=== PATIENT | female | born 1930 | race Caucasian/White ===

== ENCOUNTER 2016-08-26 12:50 | Emergency (ER) | payer MEDICARE, MEDICAID ==
[~2016-08-26] VITALS: Ht 177.8 cm; Wt 71.0 kg
[~2016-08-26 12:50] MED LIST: CARV25TA PO; DABI75CA3 PO; DILT180C51 PO; DONE10TA30 PO; FURO40TA5 PO; LOSA100T44 PO; NITR100C4 PO; ONDA4TAB7 PO
[2016-08-26 12:52] VITALS: Ht 177.8 cm; Wt 71.0 kg
--- OUTSIDE RECORDS SUMMARY | 2016-08-26 12:54 | XMS REPORT | Continuity of Care Document ---
Author Author [facility] Organization [facility] Address Unknown Phone Unavailable Support Name Relationship Address Phone SACHA BELL MD Caregiver [address] [place] [address] [address] [place], [place] [id number] Unavailable RENETTA SCOTT DO Caregiver Unknown Unavailable PEARL ZEE Next Of Kin [address] [facility] [address] [place] [address] Insurance Providers Guarantor Paula Zee Address [address] [facility] [address] [place] [address] Email NO COMP CO MORE CALLS Payer Medicare Policy Number [id number] Subscriber's Name Paula Zee Relationship 18 Self Effective Date 91 Advance Directives Directive Response Recorded Date/Time Advanced Directives Type None 09/22/15 2:20pm Chief Complaint and Reason for Visit Chief Complaint General Reason for Visit Fatigue Nausea Problems Active Problems Medical Problem Onset Date Status CAD (coronary artery disease) Unknown Chronic CHF (congestive heart failure) Unknown Chronic Coagulopathy Unknown Chronic Fatigue Unknown Acute HTN (hypertension) Unknown Chronic Hematoma Unknown Acute Hemorrhoids, internal, with bleeding Unknown Acute Laceration Unknown Acute Nausea Unknown Acute Symptomatic anemia Unknown Acute Symptomatic anemia Unknown Acute Vaginal bleeding Unknown Acute Medications Current Home Medications Medication Dose Units Route Directions Days Qty Instructions Start Date Carvedilol (Coreg) 25 Mg Tablet 25 Mg Oral Twice A Day 06/24/14 Dabigatran Etexilate Mesylate (Pradaxa) 75 Mg Capsule 75 Mg Oral Twice A Day 10/28/14 Diltiazem Hcl (Cartia Xt) 180 Mg Capsule 180 Mg Oral Twice A Day 10/28/14 Donepezil Hcl 10 Mg Tablet 5 Mg Oral Daily TAKE 1/2 TAB FOR 7 DAYS THEN 1 TAB DAILY 09/22/15 Losartan Potassium 100 Mg Tablet 100 Mg Oral Daily 06/21/14 Ondansetron (Zofran Odt) 4 Mg Tab.rapdis 4 Mg Oral Q8h @ 0100/0900/1700 10 Tablet Orally disintegrating tablet 09/22/15 Potassium Chloride 20 Meq Tab.prt.sr 20 Meq Oral Three Times A Day 03/08/11 Past Home Medications Medication Directions Ordered Status Acetaminophen With Codeine (Tylenol With Codeine #3 Tablet) 1 Each Tablet, 1 Tab Oral Every Six Hours for Pain 12/26/14 Discontinued Aspirin (Aspir 81) 81 Mg Tablet., 1 Tab Oral Daily 10/28/14 Discontinued Aspirin (Aspir 81) 81 Mg Tablet., 1 Tab Oral Daily 06/21/14 Discontinued Aspirin (Aspirin Ec) 81 Mg Tablet.dr, 81 Mg Oral Daily 12/19/08 Discontinued Benazepril Hcl 40 Mg Tablet, 40 Mg Oral Daily 12/01/10 Discontinued Bystolic , 20 Mg Oral Daily 12/01/10 Discontinued Cephalexin (Keflex) 500 Mg Capsule, 1 Cap Oral Four Times Daily 12/26/14 Discontinued Citalopram Hydrobromide (Celexa) 20 Mg Tablet, 20 Mg Oral Bedtime 03/08/11 Discontinued Cyanocobalamin (Vitamin B-12) (Vitamin B-12) 1,000 Mcg Tablet, 1 Tab Oral Daily for Low B12 07/23/14 Discontinued Dabigatran Etexilate Mesylate (Pradaxa) 75 Mg Capsule, 1 Cap Oral Twice A Day 06/21/14 Discontinued Digoxin 125 Mcg Tablet, 125 Mcg Oral Daily 12/19/08 Discontinued Ferrous Sulfate (Iron) 325 Mg Tablet, 1 Tab Oral Give With Breakfast for Anemia 07/23/14 Discontinued Glucosamine Sulfate 1,000 Mg Capsule, 1000 Mg Oral Twice A Day 12/19/08 Discontinued Guaifen/Dm Hb/P-Ephedrine (Robitussin Cold/Cough Cap) 1 Cap Capsule, 1 Cap Oral Twice A Day 03/12/11 Discontinued Irbesartan (Avapro) 300 Mg Tablet, 300 Mg Oral Daily 12/19/08 Discontinued Mirtazapine (Remeron) 15 Mg Tablet, 15 Mg Oral Bedtime 03/12/11 Discontinued Niacin/Simvastatin (Simcor 500-20 Mg Tablet) 1 Bottle Tbmp.24hr, 1 Bottle Oral 12/19/08 Discontinued Potassium Chloride (Klor-Con 10) 10 Meq Tablet.sa, 10 Meq Oral Daily Discontinued Sennosides (Senna) 8.6 Mg Tablet, 8.6 Mg Oral Daily 03/08/11 Discontinued Spironolactone (Aldactone) 25 Mg Tablet, 25 Mg Oral Daily 12/19/08 Discontinued Sulfamethoxazole/Trimethoprim (Bactrim Ds Tablet) 1 Tab Tablet, 1 Tab Oral Twice A Day 12/01/10 Discontinued Warfarin Sodium (Coumadin) 2 Mg Tablet, 2 Mg Oral Bedtime 12/19/08 Discontinued Social History Social History Problem Response Recorded Date/Time Onset Date Status Hx Substance Use No 09/22/2015 3:04pm Not Applicable Not Applicable Hx Alcohol Use No 09/22/2015 3:04pm Not Applicable Not Applicable Has the pt used tobacco in the last 12 months No 07/20/2014 5:16pm Not Applicable Not Applicable Tobacco Usage none 07/20/2014 7:22pm Not Applicable Not Applicable Query Response Start Date Stop Date Smoking Status Former smoker Hospital Discharge Instructions No hospital discharge instructions. Plan of Care Discharge Date 09/22/15 6:00pm Disposition 01 DISCHARGED HOME, SELF-CARE Condition at Discharge Stable Instructions/Education Provided DI for Nausea -- Adult Prescriptions See Medication Section Referrals RENETTA SCOTT DO Additional Instructions/Education Please take the Zofran as needed for nausea. Make sure that you are eating and drinking plenty of fluids. Follow up with your primary care provider as needed if not improving. Please make sure that you are taking your medications as prescribed as well. Care Plan and Goals Physician Care Plan Problem:Nausea, fatigue Goal: Follow up with primary care provider Instructions: Take medications and follow care plan as discussed/written Functional Status No functional status results. Allergies, Adverse Reactions, Alerts Allergen Type Severity Reaction Status Last Updated Sulfa (Sulfonamide Antibiotics) Adverse Reaction Mild GI SYMPTOMS Active 09/22/15 Digoxin Allergy Unknown NAUSEA Active 09/22/15 Trimethoprim Adverse Reaction Mild GI SYMPTOMS Active 09/22/15 Immunizations Query Response on File Recorded Date/Time Hx Influenza Vaccination Y 201301/30/15 9:32pm Hx Pneumococcal Vaccination Y 200301/30/15 9:32pm Hx Tetanus, Diptheria, Pertussis UNKNOWN - WILL UPDATE 12/26/14 01/30/15 9: 32pm Hx Influenza Vaccination Y 201301/30/15 9:32pm Hx Tetanus Diptheria Y 200501/30/15 9:32pm Hx Tetanus, Diptheria, Pertussis UNKNOWN - WILL UPDATE 12/26/14 01/30/15 9: 32pm Vital Signs Acute Vital Signs Vital Response Date/Time Pulse Rate (adult) 90 bpm (60 - 100) 09/22/2015 6:02pm Respiratory Rate 22 breaths/min (10 - 20) 09/22/2015 6:02pm O2 Sat by Pulse Oximetry 97 % (90 - 100) 09/22/2015 6:02pm Blood Pressure 161/70 mm Hg 09/22/2015 6:02pm Height (Feet) 5 feet 09/22/2015 2:37pm Height (Inches) 2.00 inches 09/22/2015 2:37pm Weight (Kilograms) 68.600 kg 09/22/2015 2:37pm Body Mass Index (BMI) 27.0 09/22/2015 2:37pm Results Laboratory Results Test Name Result Units Flags Reference Collection Date/Time Result Date/ Time Comments White Blood Count 6.2 T/MM3 4.5-11.0 09/22/2015 2:47pm 09/22/2015 2: 52pm Red Blood Count 4.73 M/MM3 4.00-5.20 09/22/2015 2:47pm 09/22/2015 2: 52pm Hemoglobin 14.1 GM/DL 12-16 09/22/2015 2:47pm 09/22/2015 2:52pm Hematocrit 44.5 % 36-46 09/22/2015 2:47pm 09/22/2015 2:52pm Mean Corpuscular Volume 94.1 UM3 80-100 09/22/2015 2:47pm 09/22/2015 2: 52pm Mean Corpuscular Hemoglobin 29.8 UUG 26-34 09/22/2015 2:47pm 2015 2:52pm Mean Corpuscular Hemoglobin Concent 31.7 GM/DL 31-37 09/22/2015 2:47pm 09/22/2015 2:52pm RDW Standard Deviation 47.5 FL 36.9-50.2 09/22/2015 2:47pm 09/22/2015 2 :52pm Platelet Count 202 T/MM3 130-400 09/22/2015 2:47pm 09/22/2015 2:52pm Mean Platelet Volume 10.7 UM3 9.4-12.4 09/22/2015 2:47pm 09/22/2015 2: 52pm Neutrophils (%) (Auto) 72.8 % H 33-66 09/22/2015 2:47pm 09/22/2015 2: 52pm Lymphocytes (%) (Auto) 17.1 % L 23-45 09/22/2015 2:47pm 09/22/2015 2: 52pm Monocytes (%) (Auto) 7.3 % 0-9.0 09/22/2015 2:47pm 09/22/2015 2:52pm Eosinophils (%) (Auto) 2.1 % 0-4 09/22/2015 2:47pm 09/22/2015 2:52pm Basophils (%) (Auto) 0.5 % 0-2 09/22/2015 2:47pm 09/22/2015 2:52pm Immature Granulocyte % (Auto) 0.2 % 0.0-0.5 09/22/2015 2:47pm 2015 2:52pm Absolute Neutrophils (auto) 4.5 T/MM3 1.8-7.7 09/22/2015 2:47pm 2015 2:52pm Absolute Lymphocytes (auto) 1.1 T/MM3 1-4.8 09/22/2015 2:47pm 2015 2:52pm Absolute Monocytes (auto) 0.5 T/MM3 0-0.8 09/22/2015 2:47pm 09/22/2015 2:52pm Absolute Eosinophils (auto) 0.1 T/MM3 0-0.5 09/22/2015 2:47pm 2015 2:52pm Absolute Basophils (auto) 0.0 T/MM3 0-0.2 09/22/2015 2:47pm 09/22/2015 2:52pm Absolute Immature Granulocyte (auto 0.01 T/MM3 0.00-0.03 09/22/2015 2: 47pm 09/22/2015 2:52pm Icterus Index < 2 0-7 09/22/2015 2:47pm 09/22/2015 3:01pm Chemistry Specimen Hemolysis < 15 0-25 09/22/2015 4:58pm 09/22/2015 5 :29pm 0-25: Specimen Exhibited No Hemolysis. Turbidity < 20 0-20 09/22/2015 2:47pm 09/22/2015 3:01pm Sodium Level 141 MEQ/L 134-144 09/22/2015 2:47pm 09/22/2015 3:01pm Potassium Level 4.4 MEQ/L 3.6-5 09/22/2015 2:47pm 09/22/2015 3:01pm Chloride Level 103 MEQ/L 98-107 09/22/2015 2:47pm 09/22/2015 3:01pm Carbon Dioxide Level 29 MEQ/L 22-30 09/22/2015 2:47pm 09/22/2015 3: 01pm Anion Gap 9 MEQ/L 5-15 09/22/2015 2:47pm 09/22/2015 3:01pm Blood Urea Nitrogen 16.0 MG/DL 7-17 09/22/2015 2:47pm 09/22/2015 3: 01pm Creatinine 0.9 MG/DL 0.7-1.2 09/22/2015 2:47pm 09/22/2015 3:01pm BUN/Creatinine Ratio 18 RATIO 6-26 09/22/2015 2:47pm 09/22/2015 3:01pm Glomerular Filtration Rate Calc 60 09/22/2015 2:47pm 09/22/2015 3: 01pm Glucose Level 104 MG/DL 65-110 09/22/2015 2:47pm 09/22/2015 3:01pm Calculated Osmolality 272 MOSM/KG 261-280 09/22/2015 2:47pm 09/22/2015 3:01pm Calcium Level 9.6 MG/DL 8.4-10.2 09/22/2015 2:47pm 09/22/2015 3:01pm Total Bilirubin 0.50 MG/DL 0.20-1.30 09/22/2015 2:47pm 09/22/2015 3: 01pm Alkaline Phosphatase 86 U/L 38-126 09/22/2015 2:47pm 09/22/2015 3:01pm Total Protein 7.5 G/DL 6.3-8.2 09/22/2015 2:47pm 09/22/2015 3:01pm Albumin 4.1 G/DL 3.5-5.0 09/22/2015 2:47pm 09/22/2015 3:01pm Globulin 3.4 G/DL 2.4-3.6 09/22/2015 2:47pm 09/22/2015 3:01pm Albumin/Globulin Ratio 1.2 RATIO 1.1-2.2 09/22/2015 2:47pm 09/22/2015 3 :01pm Aspartate Amino Transf (AST/SGOT) 23 U/L 14-36 09/22/2015 2:47pm 2015 3:01pm Alanine Aminotransferase (ALT/SGPT) 15 U/L 9-52 09/22/2015 2:47pm 09/21 3:01pm Troponin I 0.016 ng/ml 0-0.12 09/22/2015 4:58pm 09/22/2015 5:29pm Troponin values with a difference of 55% increase from orginal troponin value represent a true biological DELTA value. (%increase Calc=Orginal Troponin value, divided by subsequent Troponin value, multiplied by 100) Lipase 154 U/L 23-300 09/22/2015 2:47pm 09/22/2015 3:01pm Urine Collection Type CLEANCATCH-MIDSTREAM 09/22/2015 3:[facility] 2015 3:36pm Urine Color YELLOW YELLOW 09/22/2015 3:32p 09/22/2015 3:36pm Urine Turbidity CLEAR CLEAR 09/22/2015 3:32p 09/22/2015 3:36pm Urine Specific [place] 1.025 1.015-1.025 09/22/2015 3:[facility] 2015 3:36pm Urine pH 7.5 5.0-8.0 09/22/2015 3:32p 09/22/2015 3:36pm Urine Leukocyte Esterase NEGATIVE NEGATIVE 09/22/2015 3:32p 2015 3:36pm Urine Nitrite NEGATIVE NEGATIVE 09/22/2015 3:32p 09/22/2015 3:36pm Urine Protein 2+ A NEGATIVE 09/22/2015 3:32p 09/22/2015 3:36pm Urine Glucose (UA) NEGATIVE NEGATIVE 09/22/2015 3:32p 09/22/2015 3: 36pm Urine Ketones NEGATIVE NEGATIVE 09/22/2015 3:32p 09/22/2015 3:36pm Urine Urobilinogen 1.0 EU/DL NORMAL 09/22/2015 3:32p 09/22/2015 3: 36pm Urine Bilirubin NEGATIVE NEGATIVE 09/22/2015 3:32p 09/22/2015 3: 36pm Urine Blood TRACE-INTACT A NEGATIVE 09/22/2015 3:32p 09/22/2015 3: 36pm Urine WBC 0-1 /HPF 0-5 09/22/2015 3:32pm 09/22/2015 3:49pm Urine RBC 0-1 /HPF 0-3 09/22/2015 3:32pm 09/22/2015 3:49pm Urine Bacteria TRACE H NEGATIVE 09/22/2015 3:32pm 09/22/2015 3:49pm Urine Culture Indicated CULT NOT INDICATED 09/22/2015 3:32pm 2015 3:49pm Name: PAULA ZEE Unit #: [id number] : 1930 Sex: F Admit Date: Loc / Svc: ED Discharge Date: DIAGNOSTIC IMAGING [facility]PORT [id number]: ITS.REASON: nausea, abdominal pain PROCEDURE: KUB: Encounter: Initial Comparison: None Findings: The bowel gas pattern is nonobstructive and nonspecific. Gas is seen in nondilated small and large bowel to the level of the rectum. Moderate stool is seen throughout the colon. Mitral annular calcifications. Cardiac pacemaker. Stent in the celiac/SMA region. Degenerative change in the spine. Orthopedic hardware in the left femur. Impression: Nonobstructive nonspecific bowel gas pattern. . Procedures No known history of procedures. Encounters Encounter Location Arrival/Admit Date Discharge/Depart Date Attending Provider Registered Emergency Room [facility] 09/22/15 2:19pm SACHA BELL MD Recent Diagnosis
--- OUTSIDE RECORDS SUMMARY | 2016-08-26 12:55 | XMS REPORT | Referral Summary ---
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 Discharge Diagnosis: Congestive heart failure Discharge Diagnosis: CHF (congestive heart failure) Discharge Disposition: Home or Self Care Attending Physician: Britt Sparks MD Admitting Physician: Britt Sparks MD Vital Signs Most recent to 1 oldest [Reference Range]: Temperature Tympanic 36.3 degC [36.6-38.1 degC] *LOW* (05/27/14 11:15 AM) Peripheral Pulse 88 bpm Rate [60-100 bpm] (05/27/14 11:15 AM) Blood Pressure 138/60 mmHg [90-140/60-90 mmHg] (05/27/14 11:15 AM) Problem List Condition Effective Dates Status Health Status Informant Angina Active pectoris(Confirmed) Asthma(Confirmed) Active Atrial fibrillation Active (disorder)(Confirmed ) Atrial Active fibrillation(Confirm ed) Benign essential Active hypertension (disorder)(Confirmed ) Cardiac pacemaker in Active situ (finding)(Confirmed) Chicken Resolved pox(Confirmed) Congestive heart Active failure(Confirmed) Coronary Active arteriosclerosis (disorder)(Confirmed ) Coronary artery Active disease(Confirmed) Depression(Confirmed Active ) Ear Resolved infections(Confirmed ) Headaches(Confirmed) Active Hearing Active loss(Confirmed) Heart Active attack(Confirmed) Hypercholesterolemia Active (Confirmed) Hypertension(Confirm Active ed) Kidney Active disease(Confirmed) Obesity(Confirmed) Active Rheumatoid Active arthritis(Confirmed) TIA (transient Resolved ischemic attack)(Confirmed) UTI (urinary tract Resolved infection)(Confirmed ) Allergies, Adverse Reactions, Alerts Substance Reaction Severity Status digoxin Active sulfamethoxazole GI upet Active trimethoprim GI upet Active Medications aspirin 81 mg, Chewed, Daily, 0 Refill(s) Start Date: 10/17/13 Status: Ordered Cartia XT 180 mg/24 hours oral capsule, extended release 2 caps, Oral, Daily, 0 Refill(s) Start Date: 10/17/13 Status: Ordered carvedilol 25 mg oral tablet 1 tabs, Oral, BID, take with food, # 60 tabs, 0 Refill(s) Special Instructions: take with food Start Date: 10/17/13 Status: Ordered DuoNeb 0.5 mg-2.5 mg/3 mL inhalation solution 3 mL, Inhalation, QID, # 120 mL, 0 Refill(s), Pharmacy: [facility] #[id number] Start Date: 05/15/14 Stop Date: 05/25/14 Status: Ordered furosemide 20 mg oral tablet 1 tabs, Oral, BID, # 60 tabs, 0 Refill(s) Start Date: 05/15/14 Status: Ordered Klor-Con M20 oral tablet, extended release See Instructions, TAKE ONE TABLET BY MOUTH THREE TIMES A DAY WITH MEALS, # 270 tabs, 2 Refill(s), eRx: [facility] #[id number], TAKE ONE TABLET BY MOUTH THREE TIMES A DAY WITH MEALS Special Instructions: TAKE ONE TABLET BY MOUTH THREE TIMES A DAY WITH MEALS Start Date: 11/14/13 Status: Ordered losartan 100 mg oral tablet 1 tabs, Oral, Daily, # 30 tabs, 0 Refill(s) Start Date: 10/17/13 Status: Ordered multivitamin 1 tabs, Oral, Daily, 0 Refill(s) Start Date: 10/17/13 Status: Ordered Pradaxa 75 mg, Oral, BID, 0 Refill(s) Start Date: 10/17/13 Status: Ordered Results No data available for this section Immunizations Vaccine Date Refusal Reason influenza virus vaccine, live 07/06/13 influenza virus vaccine, live 03/23/12 Procedures Procedure Date Related Diagnosis Body Site left renal stent 10/2008 DC cardioversion of paroxysmal atrial 09/2008 fibrillation Appendectomy Blood transfusion bypass tract ablation Carotid endarterectomy HEART STENTS1 Pacemaker Tubal ligation 1See Conversion Document. Social History Social History Type Response Smoking Status Former smoker Assessment and Plan Extracted from: Title: Ambulatory Patient Education Author: Britt Sparks MD Date: 05/27/14 Family Medicine Kidney Disease, Adult The kidneys are two organs that lie on either side of the spine between the middle of the back and the front of the abdomen. The kidneys: Remove wastes and extra water from the blood. Produce important hormones. These regulate blood pressure, help keep bones strong, and help create red blood cells. Balance the fluids and chemicals in the blood and tissues. Kidney disease occurs when the kidneys are damaged. Kidney damage may be sudden (acute ) or develop over a long period (chronic ). A small amount of damage may not cause problems, but a large amount of damage may make it difficult or impossible for the kidneys to work the way they should. Early detection and treatment of kidney disease may prevent kidney damage from becoming permanent or getting worse. Some kidney diseases are curable, but most are not. Many people with kidney disease are able to control the disease and live a normal life. TYPES OF KIDNEY DISEASE Acute kidney injury.Acute kidney injury occurs when there is sudden damage to the kidneys. Chronic kidney disease. Chronic kidney disease occurs when the kidneys are damaged over a long period. End-stage kidney disease. End-stage kidney disease occurs when the kidneys are so damaged that they stop working. In end-stage kidney disease, the kidneys cannot get better. CAUSES Any condition, disease, or event that damages the kidneys may cause kidney disease. Acute kidney injury. A problem with blood flow to the kidneys. This may be caused by: Blood loss. Heart disease. Severe nam. Liver disease. Direct damage to the kidneys. This may be caused by: Some medicines. A kidney infection. Poisoning or consuming toxic substances. A surgical wound. A blow to the kidney area. A problem with urine flow. This may be caused by: Cancer. Kidney stones. An enlarged prostate. Chronic kidney disease. The most common causes of chronic kidney disease are diabetes and high blood pressure (hypertension ). Chronic kidney disease may also be caused by: Diseases that cause the filtering units of the kidneys to become inflamed. Diseases that affect the immune system. Genetic diseases. Medicines that damage the kidneys, such as anti-inflammatory medicines. Poisoning or exposure to toxic substances. A reoccurring kidney or urinary infection. A problem with urine flow. This may be caused by: Cancer. Kidney stones. An enlarged prostate in males. End-stage kidney disease. This kidney disease usually occurs when a chronic kidney disease gets worse. It may also occur after acute kidney injury. SYMPTOMS Swelling (edema ) of the legs, ankles, or feet. Tiredness (lethargy ). Nausea or vomiting. Confusion. Problems with urination, such as: Painful or burning feeling during urination. Decreased urine production. Bloody urine. Frequent urination, especially at night. Hypertension. Muscle twitches and cramps. Shortness of breath. Persistent itchiness. Loss of appetite. Metallic taste in the mouth. Weakness. Seizures. Chest pain or pressure. Trouble sleeping. Headaches. Abnormally dark or light skin. Numbness in the hands or feet. Easy bruising. Frequent hiccups. Menstruation stops. Sometimes, no symptoms are present. DIAGNOSIS Kidney disease may be detected and diagnosed by tests, including blood, urine, imaging, or kidney biopsy tests. TREATMENT Acute kidney injury. Treatment of acute kidney injury varies depending on the cause and severity of the kidney damage. In mild cases, no treatment may be needed. The kidneys may heal on their own. If acute kidney injury is more severe , your caregiver will treat the cause of the kidney damage, help the kidneys heal, and prevent complications from occurring. Severe cases may require a procedure to remove toxic wastes from the body (dialysis ) or surgery to repair kidney damage. Surgery may involve: Repair of a torn kidney. Removal of an obstruction. Most of the time, you will need to stay overnight at the hospital. Chronic kidney disease. Most chronic kidney diseases cannot be cured. Treatment usually involves relieving symptoms and preventing or slowing the progression of the disease. Treatment may include: A special diet. You may need to avoid alcohol and foods that: Have added salt. Are high in potassium. Are high in protein. Medicines. These may: Lower blood pressure. Relieve anemia. Relieve swelling. Protect the bones. End-stage kidney disease. End-stage kidney disease is life-threatening and must be treated immediately. There are two treatments for end-stage kidney disease: Dialysis. Receiving a new kidney (kidney transplant ). Both of these treatments have serious risks and consequences. In addition to having dialysis or a kidney transplant, you may need to take medicines to control hypertension and cholesterol and to decrease phosphorus levels in your blood. LENGTH OF ILLNESS Acute kidney injury.The length of this disease varies greatly from person to person. Exactly how long it lasts depends on the cause of the kidney damage. Acute kidney injury may develop into chronic kidney disease or end- stage kidney disease. Chronic kidney disease. This disease usually lasts a lifetime. Chronic kidney disease may worsen over time to become end-stage kidney disease. The time it takes for end-stage kidney disease to develop varies from person to person. End-stage kidney disease. This disease lasts until a kidney transplant is performed. PREVENTION Kidney disease can sometimes be prevented. If you have diabetes, hypertension, or any other condition that may lead to kidney disease, you should try to prevent kidney disease with: An appropriate diet. Medicine. Lifestyle changes. FOR MORE INFORMATION [employer]: www.aakp.org National Kidney Foundation: www.kidney.org [employer]: www.akfinc.org [employer] [facility]: www.lifeoptions.org and www.kidneyschool.org Document Released: 04/25/2006 Document Revised: 04/11/2013 Document Reviewed: [employer] Patient Information 2014 [employer]. No follow up information was provided. Extracted from: Title: Office Visit Note Author: rBitt Sparks MD Date: 05/27/14 Assessment/Plan CHF (congestive heart failure) So muchbetter! Recheck labs. Appt 3 months.
--- OUTSIDE RECORDS SUMMARY | 2016-08-26 12:55 | XMS REPORT | Referral Summary ---
Author Author [facility], [facility] Organization [facility] Address Unknown Phone Unavailable Care Team Providers Care Windows Systems Admin Name Role Phone Anabela Woods Primary Care Physician [phone] Encounter VC Date(s): 08/27/15 - 08/27/15 [facility], [address] [place] [id number] Discharge Diagnosis: Memory loss, short term Discharge Diagnosis: Atrial fibrillation Discharge Diagnosis: Benign essential hypertension (disorder) Discharge Diagnosis: Coronary artery disease Discharge Disposition: 01-Home or Self Care Attending Physician: Shira Woods DO Admitting Physician: Shira Woods DO Vital Signs Most recent to 1 oldest [Reference Range]: Peripheral Pulse 68 bpm Rate [60-100 bpm] (08/27/15 1:56 PM) Respiratory Rate 18 br/min [14-20 br/min] (08/27/15 1:56 PM) Blood Pressure 172/88 mmHg [90-140/60-90 mmHg] *HI* (08/27/15 1:56 PM) SpO2 98 % (08/27/15 1:56 PM) Problem List Condition Effective Dates Status Health Status Informant Acute Active pain(Confirmed) Angina Active pectoris(Confirmed) Mild aortic Active insufficiency(Confir med) Asthma(Confirmed) Active At risk for activity Active intolerance(Confirme d)1 At risk for Active injury(Confirmed)2 At risk of pressure Active sore(Confirmed) Atrial fibrillation Active (disorder)(Confirmed ) Atrial Active fibrillation(Confirm ed) Benign essential Active hypertension (disorder)(Confirmed ) Cardiac pacemaker in Active situ (finding)(Confirmed) Chicken Resolved pox(Confirmed) Chronic atrial Active fibrillation(Confirm ed) Chronic kidney Active disease (CKD)(Confirmed) Congestive heart Active failure(Confirmed) Coronary Active arteriosclerosis (disorder)(Confirmed ) Coronary artery Active disease(Confirmed) Depression(Confirmed Active ) Ear Resolved infections(Confirmed ) Hx of renal artery Active stenosis(Confirmed) Headaches(Confirmed) Active Hearing Active loss(Confirmed) Heart Active attack(Confirmed) Hypercholesterolemia Active (Confirmed) Hypertension(Confirm Active ed) Kidney Active disease(Confirmed) Obesity(Confirmed) Active Pulmonary Active HTN(Confirmed) Rheumatoid Active arthritis(Confirmed) S/P coronary artery Active stent placement(Confirmed) TIA (transient Resolved ischemic attack)(Confirmed) Tissue perfusion Active alteration(Confirmed )3 UTI (urinary tract Resolved infection)(Confirmed ) 1Problem added automatically by system based on initiation of At Risk for Activity Intolerance Plan of Care 2Problem added automatically by system based on initiation of Risk for Injury Plan of Care 3Problem added automatically by system based on initiation of Tissue Perfusion Cerebral Plan of Care Allergies, Adverse Reactions, Alerts Substance Reaction Severity Status digoxin Active sulfamethoxazole GI upet Active trimethoprim GI upet Active Medications aspirin 325 mg oral tablet 325 mg 1 tabs, Oral, Daily, # 30 tabs, 0 Refill(s) Start Date: 05/27/15 Status: Ordered Cartia XT 180 mg/24 hours oral capsule, extended release 2 caps, Oral, Daily, # 60 caps, 0 Refill(s) Start Date: 08/26/14 Status: Ordered carvedilol 25 mg oral tablet 1 tabs, Oral, BID, take with food, # 60 tabs, 0 Refill(s) Start Date: 08/26/14 Status: Ordered ferrous sulfate 325 mg (65 mg elemental iron) oral tablet 1 tabs, Oral, Daily, # 30 tabs, 0 Refill(s) Start Date: 08/26/14 Status: Ordered Klor-Con M20 20 mEq, Oral, TIDWM, 0 Refill(s) Start Date: 03/07/15 Status: Ordered Lasix 40 mg, Oral, BID, 0 Refill(s) Start Date: 03/07/15 Status: Ordered losartan 100 mg, Oral, Bedtime (once a day), 0 Refill(s) Start Date: 03/07/15 Status: Ordered Pradaxa 75 mg oral capsule 75 mg 1 caps, Oral, BID, # 60 caps, 0 Refill(s) Start Date: 01/02/15 Status: Ordered Results No data available for this section Immunizations Vaccine Date Refusal Reason influenza virus vaccine, inactivated 03/10/15 influenza virus vaccine, live 2/28/14 influenza virus vaccine, live 03/23/12 pneumococcal 13-valent conjugate vaccine1 08/26/14 tetanus-diphth toxoids (Td) adult/adol 12/26/14 1Result Comment: charting by Cristy Nolasco, RN, CDE Procedures Procedure Date Related Diagnosis Body Site Open Reduction Internal Fixation Hip (Left)1 03/08/15 Colonoscopy2 06/24/14 Esophagogastroduodenoscopy3 06/24/14 Endarterectomy of common carotid artery4 10/2010 Insertion of renal artery stent5 10/2008 left renal stent 10/2008 Placement of stent in cardiac conduit6 10/2008 DC cardioversion of paroxysmal atrial 09/2008 fibrillation Appendectomy Blood transfusion bypass tract ablation Carotid endarterectomy HEART STENTS7 Pacemaker Tubal ligation 1auto-populated from documented surgical case 2normal 3duodenal lpolyp, no findings to explain anemia, follow up with PCP or supervisor beam department in 4-6 [address]. Gallo 5left 62 stents, 7See Conversion Document. Social History Social History Type Response Smoking Status Former smoker Assessment and Plan Extracted from: Title: Office Visit Note Author: Shria Woods DO Date: 08/27/15 Assessment/Plan Atrial fibrillation Continue Pradaxa, continue as per cardiology. Ordered: Office Visit Level 4 Est 38265 Benign essential hypertension (disorder) Recheck blood pressure was improved at 152/76. Continue as per cardiology. Return to clinic 6 months. Ordered: Office Visit Level 4 Est 05985 Coronary artery disease Continue as per cardiology. Continue current regimen. Ordered: Office Visit Level 4 Est 20680 Memory loss, short term We discussed possible reasons for this memory loss includingthe microvascular changes seen on CT scan as well as the old stroke seen. They should keep appointment with Dr. Kurtis Medina in a monthand let me know if I can be of any assistance. Return to clinic 6 months. Ordered: Office Visit Level 4 Est 62148
--- OUTSIDE RECORDS SUMMARY | 2016-08-26 12:55 | XMS REPORT | Referral Summary ---
Author Author [facility], [facility] Organization [facility] Address Unknown Phone Unavailable Care Team Providers Care Senior Front End Web Developer Name Role Phone Anabela Woods Primary Care Physician [phone] Encounter VC Date(s): 01/08/15 - 01/08/15 [facility] [place] [id number] Discharge Diagnosis: Visit for suture removal Discharge Disposition: 01-Home or Self Care Attending Physician: Madai Le APRN Admitting Physician: Madai Le APRN Vital Signs Most recent to 1 oldest [Reference Range]: Temperature Tympanic 36.5 degC [36.6-38.1 degC] *LOW* (01/08/15 3:33 PM) Peripheral Pulse 84 bpm Rate [60-100 bpm] (01/08/15 3:33 PM) Blood Pressure 152/88 mmHg [90-140/60-90 mmHg] *HI* (01/08/15 3:33 PM) Problem List Condition Effective Dates Status [...] vaccine, inactivated 03/10/15 influenza virus vaccine, live 07/06/13 influenza virus vaccine, live 03/23/12 pneumococcal 13-valent conjugate vaccine1 08/26/14 tetanus-diphth toxoids (Td) adult/adol 12/26/14 1Result Comment: charting by Cristy Nolasco RN, CDE Procedures Procedure Date Related Diagnosis [...] explain anemia, follow up with PCP or hydrant setter in 4-6 weeks 4left, Dr. Gallo 5left 62 stents, 7See Conversion Document. Social History Social History Type Response Smoking Status Former smoker Assessment and Plan Extracted from: Title: Office Visit Note Author: Madai Le SECURITY VEHICLE PATROL OFFICER Date: 05/28/15 Assessment/Plan 1.Visit for suture removal Sutures were removed from the laceration on the medial aspect of the left elbow without issue. I do not recall if there is any signs of secondary infection or if the wound edges were approximated. I presume sutures were removed per usual technique without issue.
--- OUTSIDE RECORDS SUMMARY | 2016-08-26 12:55 | XMS REPORT | Continuity of Care Document ---
Author Author [facility] Organization [facility] Address Unknown Phone Unavailable Allergies Medications Problems Procedures Results Encounters ACCT No. Visit Date/Time Discharge Status Pt. Type Provider Facility Loc./Unit Complaint [id number] 07/06/2013 13:00:00 07/06/2013 23 :59:59 CLS Outpatient
--- OUTSIDE RECORDS SUMMARY | 2016-08-26 12:55 | XMS REPORT | Continuity of Care Document ---
Author Author Britt Sparks MD Organization Ambulatory Address [address] [place] [address] [place] [address] Phone Care Team Providers Care Stockroom Attendant Name Role Phone Britt Sparks PP Unavailable Payers Payer name Insurance type Covered republican ID Authorization(s) Unknown Problems Condition Effective Dates (start - stop) Clinical Status Atrial Fibrillation - *Chronic CAD, Unspecified - *Chronic Hypertension, Benign - *Chronic S/P Pacemaker - *Chronic Iron deficiency - *Chronic Routine Medical Exam - *Chronic Fatigue / Malaise - *Chronic CAD, Unspecified - *Chronic Urinary Tract Infection - *Chronic Weakness - *Acute Influenza Vaccine - Hypertension, Benign - *Chronic Pacemaker - *Acute UTI (lower urinary tract infection) - *Chronic Atrial Fibrillation - *Chronic Hypertension, Benign - *Chronic Family History Family Member Diagnosis Age At Onset Status Father () Myocardial infarction 58 (cause of )5 Yes Family h/o (Unknown) Diabetes Yes Family h/o (Unknown) Hypertension Yes Family h/o (Unknown) Heart disease Yes Family h/o (Unknown) Hyperlipidemia Yes Son (Unknown) Allergies Yes Mother (Unknown) Asthma Yes Family h/o (Unknown) Obesity Yes Family h/o (Unknown) Depression Yes Brother (Unknown) CVA (Stroke) Yes Sister (Unknown) Anemia Yes Family h/o (Unknown) CAD Yes Mother () Congestive heart failure 74 Yes Social History Social History Element Description Quantity Unknown Allergies, Adverse Reactions, Alerts Substance Reaction Severity Status DIGOXIN Unknown TRIMETHOPRIM GI upet Unknown SULFAMETHOXAZOLE GI upet Unknown Medications Medication Instructions Dosage Effective Dates (start - stop) Status Klor-Con M20 mEq tablet,extended release take 1 tablet (20MEQ) by oral route 2 times every day with food 20 MEQ - Active clonidine 0.2 mg tablet take 1 tablet (0.2MG) by oral route 2 times every day 0.2 MG - Active Lasix 20 mg tablet TAKE 3 TABLETS BID TO EQUAL 60MG BID - Active aspirin 81 mg chewable tablet chew 1 tablet (81MG) by oral route every day 81 MG - Active multivitamin tablet take 1 Tablet by Oral route every day 0 - Active losartan 100 mg tablet take 1 tablet (100MG) by oral route every day 100 MG - Active Cartia XT 180 mg capsule,extended release take 2 Capsule (360MG) by oral route every day 360 MG - Active Niferex-150 Forte 150 mg-25 mcg-1 mg capsule take 1 capsule by Oral route 2 times every day 0 - Active furosemide 40 mg tablet take 1 tablet (40MG) by oral route at bedtime Nov - Active carvedilol 25 mg tablet take 1 tablet (25MG) by oral route 2 times every day with food 25 MG - Active Immunizations Vaccine Date Status Comments Flu (split) (3 yrs or older)(preservative free) completed Flu (split) (3 yrs or older) completed Results Test Name Date and Time Measure Units Reference Range Abnormal Flag Comments Panel Description: CBC WBC 13:58:00 5.7 K/uL 4.8-10.8 RBC 13:58:00 3.95 M/uL 4.00-5.20 L HGB 13:58:00 11.7 g/dl 12.0-16.0 L HCT 13:58:00 36.0 % 37.0-47.0 L MCV 13:58:00 91.1 fL 82.0-99.0 MCH 13:58:00 29.6 pg 27.0-32.0 MCHC 13:58:00 32.5 g/dL 32.0-36.0 RDW 13:58:00 13.2 % 11.5-14.5 MPV 13:58:00 11.7 fL 8.8-14.8 Platelet Count 13:58:00 183 K/uL 150-400 Immature Granulocytes 13:58:00 0.2 % 0.0-1.0 Absolute Neutrophils 13:58:00 4.15 THOUS 1.90-7.00 Absolute Lymphocytes 13:58:00 0.92 THOUS 0.80-3.30 Absolute Monocytes 13:58:00 0.43 THOUS 0.30-1.00 Absolute Eosinophils 13:58:00 0.16 THOUS 0.00-0.50 Absolute Basophils 13:58:00 0.01 THOUS 0.00-0.20 Neutrophils 13:58:00 73 % 51-75 Lymphocytes 13:58:00 16 % 20-46 L Monocytes 13:58:00 8 % 4-11 Eosinophils 13:58:00 3 % 0-4 Basophils 13:58:00 0 % 0-2 Testing performed at [facility] Reference Lab [address] [place] [address] Career Guidance Counselor Jeremy Estrada MD Panel Description: Ferritin-[facility] Ferritin 13:58:00 34 ng/mL 5-204 Testing performed at [facility] [address] [place] [address] Career Guidance Counselor Jeremy Estrada MD Panel Description: Iron And Iron Binding Capacity-[facility] Iron 13:58:00 45 ug/dL 50-170 L Iron Binding Capacity 13:58:00 321 ug/dL 260-445 Percent Saturation 13:58:00 14 % 11-46 Unbound Iron Content 13:58:00 276 ug/dl 126-382 Testing performed at [facility] Reference Lab [address] [facility] [address] Career Guidance Counselor Jeremy Estrada MD Vital Signs Date / Time: Height Weight Pulse Rate Blood Pressure Temperature /13:07:00 62.75 in 149.60 lbs 76 /min 130/80 mm[Hg] 97.8 F Procedures Procedure Date FLU VACCINE NO PRESERV 3 & > Encounters Encounter Location Date Patient Visit [facility] Patient Visit [facility] Patient Visit [facility] Patient Visit [facility] Patient Visit [facility] Patient Visit [facility] Patient Visit [facility] Patient Visit [facility] Patient Visit [facility] Patient Visit [facility] Patient Visit [facility] Patient Visit Conversion Advance Directives Directive Effective Date Unknown
--- OUTSIDE RECORDS SUMMARY | 2016-08-26 12:55 | XMS REPORT | Referral Summary ---
Author Organization Unknown Address Unknown Phone Unavailable Care Team Providers Care Cable Tester Name Role Phone Renaldo Sparks Primary Care Physician [phone] Encounter VC Date(s): 06/12/14 - 06/12/14 [facility], Lonnie, [address] [place] [id number] Discharge Diagnosis: Anemia Discharge Disposition: Home or Self Care Attending Physician: Nahid Bennett MD Admitting Physician: Nahid Bennett MD Referring Physician: Britt Sparks MD Vital Signs Most recent to 1 oldest [Reference Range]: Temperature Tympanic 36.3 degC [36.6-38.1 degC] *LOW* (06/12/14 9:11 AM) Blood Pressure 140/68 mmHg [90-140/60-90 mmHg] (06/12/14 9:11 AM) Problem List Condition Effective Dates Status [...] QID, # 120 mL, 0 Refill(s), Pharmacy: [facility] #[id number] Start Date: 05/15/14 Stop Date: 05/25/14 Status: Ordered furosemide 20 mg oral tablet 1 tabs, Oral, BID, # 60 tabs, 0 Refill(s) Start Date: 05/15/14 Status: Ordered Klor-Con M20 oral tablet, extended release See Instructions, TAKE ONE TABLET BY MOUTH THREE TIMES A DAY WITH MEALS, # 270 tabs, 2 Refill(s), eRx: [facility] #[id number], TAKE ONE TABLET BY MOUTH THREE TIMES [...] Procedures Procedure Date Related Diagnosis Body Site Endarterectomy of common carotid artery1 10/2010 Insertion of renal artery stent2 10/2008 left renal stent 10/2008 Placement of stent in cardiac conduit3 10/2008 DC cardioversion of paroxysmal atrial 09/2008 fibrillation Appendectomy Blood transfusion bypass tract ablation Carotid endarterectomy HEART STENTS4 Pacemaker Tubal ligation 1left, Dr. Gallo 2left 32 stents, 4See Conversion Document. Social History Social History Type Response Smoking Status Former smoker Assessment and Plan Extracted from: Title: Ambulatory Patient Education Author: Nahid Bennett MD Date: 06/12 Family Medicine Anemia, Nonspecific Your exam and blood tests show you are anemic. This means your blood ( hemoglobin ) level is low. Normal hemoglobin values are 12 to 15 g/dL for females and 14 to 17 g/dL for males. Make a note of your hemoglobin level today. The hematocrit percent is also used to measure anemia. A normal hematocrit is 38% to 46% in females and 42% to 49% in males. Make a note of your hematocrit level today. CAUSES Anemia can be due to many different causes. Excessive bleeding from periods (in women). Intestinal bleeding. Poor nutrition. Kidney, thyroid, liver, and bone marrow diseases. SYMPTOMS Anemia can come on suddenly (acute ). It can also come on slowly. Symptoms can include: Minor weakness. Dizziness. Palpitations. Shortness of breath. Symptoms may be absent until half your hemoglobin is missing if it comes on slowly. Anemia due to acute blood loss from an injury or internal bleeding may require blood transfusion if the loss is severe. Hospital care is needed if you are anemic and there is significant continual blood loss. TREATMENT Stool tests for blood (Hemoccult ) and additional lab tests are often needed. This determines the best treatment. Further checking on your condition and your response to treatment is very important. It often takes many weeks to correct anemia. Depending on the cause, treatment can include: Supplements of iron. Vitamins B12 and folic acid. Hormone medicines. If your anemia is due to bleeding, finding the cause of the blood loss is very important. This will help avoid further problems. SEEK IMMEDIATE MEDICAL CARE IF: You develop fainting, extreme weakness, shortness of breath, or chest pain. You develop heavy vaginal bleeding. You develop bloody or black, tarry stools or vomit up blood. You develop a high fever, rash, repeated vomiting, or dehydration. Document Released: 06/02/2005 Document Revised: 07/17/2012 Document Reviewed: [employer] Patient Information 2014 [email or web address]. No follow up information was provided. Extracted from: Title: Office Visit Note Author: Nahid Bennett MD Date: 06/12/14 Assessment/Plan Anemia Ordered: Office Visit Level 4 New [address] Plan: Bidirectional endoscopy / EGD, Colonoscopy, Hold Pradaxa for 3 days preoperatively. I did review the patient's chart including recent office note performed by PCP's manager home healthcare from May 16, 2014. Reviewed lab work from May 15 that revealed her hemoglobin to be low at 8.5. This was normocytic in nature with a mean cell volume of 87. BMP obtained on May 17, 2014 was essentially within normal limits. I informed the patient that given her history for fairly significant anemia up on laboratory evaluation it is my recommendation that we would proceed with endoscopic evaluation/EGD and colonoscopy. Patient will need to be off her Pradaxa 3 days prior to her procedure.Risk of endoscopy was discussed with the patient. Risks include but are not inclusive of bleeding and/or perforation requiring surgery. Patient understood and was scheduled.
--- OUTSIDE RECORDS SUMMARY | 2016-08-26 12:55 | XMS REPORT | Referral Summary ---
Author Author [facility] Organization [facility] Address Unknown Phone Unavailable Care Team Providers Care Camera Person Name Role Phone Anabela Woods Primary Care Physician [phone] Encounter [facility] [id number] Date(s): 03/07/15 - 03/11/15 [facility] [address] [place] [address] Discharge Diagnosis: Chronic atrial fibrillation Discharge Diagnosis: Mild aortic insufficiency Discharge Diagnosis: Hx of renal artery stenosis Discharge Diagnosis: Hypertension Discharge Diagnosis: Chronic kidney disease (CKD) Discharge Diagnosis: Pulmonary HTN Discharge Diagnosis: Hx of coronary artery stent placement 1995 Discharge Diagnosis: Presence of cardiac pacemaker Discharge Diagnosis: ASHD (arteriosclerotic heart disease) Discharge Disposition: 62-Inpatient Rehab Facility Attending Physician: Jacobo Bliss MD Admitting Physician: Jacobo Bliss MD Vital Signs Most recent to 1 oldest [Reference Range]: Temperature Axillary 36.7 degC [35.2-36.7 degC] (03/10/15 4:00 PM) Temperature Oral 36.7 degC [35.8-37.3 degC] (03/11/15 11:53 AM) Temperature Skin 36.1 degC [36-37 degC] (03/08/15 9:30 AM) Peripheral Pulse 66 bpm Rate [60-100 bpm] (03/11/15 11:53 AM) Heart Rate Monitored 70 bpm [60-100 bpm] (03/10/15 4:00 PM) Respiratory Rate 16 br/min [14-20 br/min] (03/11/15 11:53 AM) Blood Pressure 101/61 mmHg [90-140/60-90 mmHg] (03/11/15 11:53 AM) Mean Arterial 84 mmHg Pressure, Cuff (03/08/15 9:30 AM) SpO2 96 % (03/11/15 11:53 AM) Problem List Condition Effective Dates Status [...] trimethoprim GI upet Active Medications aspirin 81 mg oral tablet 81 mg 1 tabs, Oral, BID, Give BID for20 days post hospital discharge for DVT prophylaxis then resume daily dosing, # 90 tabs, 0 Refill(s) Start Date: 01/02/15 Status: Ordered Cartia XT 180 mg/24 hours oral capsule, extended release 2 caps, Oral, Daily, # 60 caps, 0 Refill(s) Start Date: 08/26/14 Status: Ordered carvedilol 25 mg oral tablet 1 tabs, Oral, BID, take with food, # 60 tabs, 0 Refill(s) Start Date: 08/26/14 Status: Ordered estradiol 0.1 mg/g vaginal cream 1 g, Vaginal, 3x/Wk, Apply a thin film as directed., # 60 g, 1 Refill(s) Start Date: 02/20/15 Status: Ordered ferrous sulfate 325 mg (65 [...] 0 Refill(s) Start Date: 03/07/15 Status: Ordered nitroglycerin 0.4 mg sublingual tablet 0.4 mg 1 tabs, SubLingual, q5min, Angina/Chest Pain, 0 Refill(s) Start Date: 03/11/15 Status: Ordered Nineveh 5 mg-325 mg oral tablet 1-2 tabs, Oral, q4hr, Pain Moderate (4-6), # 30 tabs, 0 Refill(s) Start Date: 03/11/15 Stop Date: 04/10/15 Status: Ordered Pradaxa 75 mg oral capsule 75 mg 1 caps, Oral, BID, # 60 caps, 0 Refill(s) Start Date: 01/02/15 Status: Ordered Results Hematology Most recent to 1 oldest [Reference Range]: WBC [4.8-10.8 5.3 10*3/uL 10*3/uL] (03/11/15 5:25 AM) RBC [4.00-5.20] 2.70 *LOW* (03/11/15 5:25 AM) Hgb [12.0-16.0 8.4 gm/dL gm/dL] *LOW* (03/11/15 5:25 AM) Hct [37.0-47.0 %] 26.7 % *LOW* (03/11/15 5:25 AM) MCV [82.0-99.0 fL] 98.9 fL (03/11/15 5:25 AM) MCH [27.0-32.0 pg] 31.1 pg (03/11/15 5:25 AM) MCHC [32.0-36.0 31.5 gm/dL gm/dL] *LOW* (03/11/15 5:25 AM) RDW [11.5-14.5 %] 13.2 % (03/11/15 5:25 AM) Platelet [150-400 123 10*3/uL 10*3/uL] *LOW* (03/11/15 5:25 AM) MPV [9.4-12.4 fL] 11.4 fL (03/11/15 5:25 AM) Immature 0.4 % Granulocytes (03/07/15 9:02 AM) [0.0-1.0 %] Neutrophils [51-75 86 % %] *HI* (03/07/15 9:02 AM) Lymphocytes [20-46 7 % %] *LOW* (03/07/15 9:02 AM) Monocytes [4-11 %] 5 % (03/07/15 9:02 AM) Eosinophils [0-4 %] 2 % (03/07/15 9:02 AM) Basophils [0-2 %] 0 % (03/07/15 9:02 AM) Neutro Absolute 9.59 10*3 [1.90-7.00 10*3] *HI* (03/07/15 9:02 AM) Lymph Absolute 0.76 10*3 [0.80-3.30 10*3] *LOW* (03/07/15 9:02 AM) Gates Absolute 0.55 10*3 [0.30-1.00 10*3] (03/07/15 9:02 AM) Eos Absolute 0.25 10*3 [0.00-0.50 10*3] (03/07/15 9:02 AM) Baso Absolute 0.02 10*3 [0.00-0.20 10*3] (03/07/15 9:02 AM) Nucleated RBC 0.0 /100 WBC Automated [0 /100 (03/07/15 9:02 AM) WBC] Coagulation Most recent to 1 oldest [Reference Range]: INR [0.9-1.2] 1.5 *HI* (03/08/15 10:17 AM) Chemistry Most recent to 1 oldest [Reference Range]: Sodium Lvl [136-144 137 mEq/L mEq/L] (03/11/15 5:25 AM) Potassium Lvl 4.5 mEq/L [3.6-5.1 mEq/L] (03/11/15 5:25 AM) Chloride [99-109 110 mEq/L mEq/L] *HI* (03/11/15:25 AM) CO2 [22-32 mEq/L] 22 mEq/L (03/11/15:25 AM) AGAP [3-20] 5 (03/11/15:25 AM) BUN [4-20 mg/dL] 27 mg/dL *HI* (03/11/15:25 AM) Glucose Lvl [70-100 110 mg/dL mg/dL] *HI* (03/11/15:25 AM) Creatinine Lvl 1.01 mg/dL [0.44-1.03 mg/dL] (03/11/15:25 AM) eGFR [>60] 52 1 *ABN* (03/11/15:25 AM) Calcium Lvl 8.4 mg/dL [8.6-10.0 mg/dL] *LOW* (03/11/15:25 AM) Albumin Lvl [3.5-4.8 3.5 gm/dL gm/dL] (03/07/15 9:02 AM) Total Protein 6.7 gm/dL [6.1-7.9 gm/dL] (03/07/15 9:02 AM) Globulin [1.9-4.3 3.2 gm/dL gm/dL] (03/07/15 9:02 AM) ALT [14-54 U/L] 13 U/L *LOW* (03/07/15 9:02 AM) AST [15-41 U/L] 18 U/L (03/07/15 9:02 AM) Alk Phos [26-104 64 U/L U/L] (03/07/15 9:02 AM) Bili Total [0.2-1.2 0.6 mg/dL 2 mg/dL] (03/07/15 9:02 AM) Troponin [<0.06 <0.05 ng/mL ng/mL] (03/10/15 8:58 AM) Blood Glucose, 118 mg/dL Capillary [70-100 *HI* mg/dL] (03/08/15 5:04 AM) 1Result Comment: Multiply eGFR results by 1.21 for race. 2Result Comment: Naproxen, specifically the metabolite O-desmethylnaproxen, may cause spurious elevation in Total Bilirubin levels. Urinalysis Most recent to 1 oldest [Reference Range]: UA Color Lt Yellow (03/07/15 9:02 AM) UA Appear Clear (03/07/15 9:02 AM) UA pH [5.0-8.0] 7.0 (03/07/15 9:02 AM) UA Leuk Est Negative [Negative] (03/07/15 9:02 AM) UA Nitrite Negative [Negative] (03/07/15 9:02 AM) UA Protein Negative [Negative] (03/07/15 9:02 AM) UA Glucose Negative [Negative] (03/07/15 9:02 AM) UA Ketones Negative [Negative] (03/07/15 9:02 AM) UA Urobilinogen Negative [<1.0] (03/07/15 9:02 AM) UA Bili [Negative] Negative (03/07/15 9:02 AM) UA Blood [Negative] Negative (03/07/15 9:02 AM) UA Spec Grav 1.006 [1.003-1.030] (03/07/15 9:02 AM) Type Catheter (03/07/15 9:02 AM) Blood Bank Results Most recent to 1 oldest [Reference Range]: ABO/Rh A POS (03/07/15 3:58 PM) Antibody Screen Tube NEG, history of anti-Fy (03/07/15 3:58 PM) Immunizations Vaccine Date Refusal Reason influenza virus [...] explain anemia, follow up with PCP or nut threader in 4-6 weeks 4left, Dr. Gallo 5left 62 stents, 7See Conversion Document. Social History Social History Type Response Smoking Status Former smoker Assessment and Plan No data available for this section
--- OUTSIDE RECORDS SUMMARY | 2016-08-26 12:55 | XMS REPORT | Referral Summary ---
Author Author [facility], [facility] Organization [facility] Address Unknown Phone Unavailable Care Team Providers Care Process Camera Operator Name Role Phone Anabela Woods Primary Care Physician [phone] Encounter [facility] Date(s): 02/03/15 - 02/03/15 [facility], [address] [place] [id number] Discharge Diagnosis: Uterine prolapse Discharge Diagnosis: Post-menopausal bleeding Discharge Disposition: 01-Home or Self Care Attending Physician: Malgorzata Luna APRN Admitting Physician: Malgorzata Luna APRN Vital Signs Most recent to 1 oldest [Reference Range]: Temperature Tympanic 35.7 degC [36.6-38.1 degC] *LOW* (02/03/15 1:51 PM) Peripheral Pulse 68 bpm Rate [60-100 bpm] (02/03/15 1:51 PM) Blood Pressure 136/82 mmHg [90-140/60-90 mmHg] (02/03/15 1:51 PM) Problem List Condition Effective Dates Status [...] upet Active trimethoprim GI upet Active Medications ascorbic acid 500 mg oral tablet 1 tabs, Oral, Daily, # 30 tabs, 0 Refill(s) Start Date: 08/26/14 Status: Ordered aspirin 81 mg oral tablet 81 mg 1 tabs, Oral, Daily, # 90 tabs, 0 Refill(s) Start Date: [...] 0 Refill(s) Start Date: 08/26/14 Status: Ordered furosemide 40 mg oral tablet See Instructions, TAKE ONE TABLET BY MOUTH TWICE A DAY, # 60 tabs, 2 Refill(s), eRx: [facility] #[id number], TAKE ONE TABLET BY MOUTH TWICE A DAY Start Date: 11/22/14 Status: Ordered Klor-Con 20 mEq, Oral, TID, 0 Refill(s) Start Date: 01/02/15 Status: Ordered losartan 100 mg oral tablet 1 tabs, Oral, Daily, # 30 tabs, 0 Refill(s) Start Date: 08/26/14 Status: Ordered Pradaxa 75 mg oral capsule 75 mg 1 caps, Oral, BID, # 60 caps, 0 Refill(s) Start Date: 01/02/15 Status: Ordered Tylenol with Codeine #3 1 tabs, Oral, q6hr, as needed for pain, 0 Refill(s) Start Date: 12/27/14 Status: Ordered Vitamin B-12 1000 mcg oral tablet 1 tabs, Oral, Daily, # 30 tabs, 0 Refill(s) Start Date: 08/26/14 Status: Ordered Results No data available for this section Immunizations Vaccine Date Refusal Reason influenza virus vaccine, live 07/06/13 influenza virus vaccine, live 03/23/12 pneumococcal 13-valent conjugate vaccine1 08/26/14 tetanus-diphth toxoids (Td) adult/adol 12/26/14 1Result Comment: charting by Cristy Nolasco RN, CDE Procedures Procedure Date Related Diagnosis Body Site Colonoscopy1 06/24/14 Esophagogastroduodenoscopy2 06/24/14 Endarterectomy of common carotid artery3 10/2010 Insertion of renal artery stent4 10/2008 left renal stent 10/2008 Placement of stent in cardiac conduit5 10/2008 DC cardioversion of paroxysmal atrial 09/2008 fibrillation Appendectomy Blood transfusion bypass tract ablation Carotid endarterectomy HEART STENTS6 Pacemaker Tubal ligation 1normal 2duodenal lpolyp, no findings to explain anemia, follow up with PCP or billing supervisor in 4-[address] Sabino sanchez 4left 52 stents, 6See Conversion Document. Social History Social History Type Response Smoking Status Former smoker Assessment and Plan No data available for this section
--- OUTSIDE RECORDS SUMMARY | 2016-08-26 12:55 | XMS REPORT | Referral Summary ---
Author Author [facility], [facility] Organization [facility] Address Unknown Phone Unavailable Care Team Providers Care Ramp Agent Name Role Phone Anabela Woods Primary Care Physician [phone] Encounter [facility] Date(s): 02/17/15 - 02/17/15 [facility], [address] [place] [address] Discharge Disposition: 01-Home or Self Care Attending Physician: Malgorzata Luna APRN Admitting Physician: Malgorzata Luna APRN Vital Signs Most recent to 1 oldest [Reference Range]: Peripheral Pulse 62 bpm Rate [60-100 bpm] (02/17/15 2:05 PM) Blood Pressure 140/66 mmHg [90-140/60-90 mmHg] (02/17/15 2:05 PM) Problem List Condition Effective Dates Status [...] Apply a thin film as directed., # 100 g, 0 Refill(s), Pharmacy: [facility] #[id number] Start Date: 02/17/15 Stop Date: 03/19/15 Status: Ordered ferrous sulfate 325 mg (65 mg elemental iron) oral tablet 1 tabs, Oral, Daily, # 30 tabs, 0 Refill(s) Start Date: 08/26/14 Status: Ordered furosemide 40 mg oral tablet See Instructions, TAKE ONE TABLET BY MOUTH TWICE A DAY, # 60 tabs, 2 Refill(s), eRx: [facility] #[id number], TAKE ONE TABLET BY MOUTH TWICE A DAY Start Date: 11/22/14 Status: Ordered Klor-Con 20 mEq, Oral, TID, 0 Refill(s) Start Date: 01/02/15 Status: Ordered Klor-Con M20 oral tablet, extended release See Instructions, TAKE ONE TABLET BY MOUTH THREE TIMES A DAY WITH MEALS, # 270 tabs, 1 Refill(s), eRx: [facility] #[id number], TAKE ONE TABLET BY MOUTH THREE TIMES A DAY WITH MEALS Start Date: 02/17/15 Status: Ordered losartan 100 mg oral tablet [...] explain anemia, follow up with PCP or medical office professional instructor in 4-[address] Sabino gongora 4left 52 stents, 6See Conversion Document. Social History Social History Type Response Smoking Status Former smoker Assessment and Plan No data available for this section
--- OUTSIDE RECORDS SUMMARY | 2016-08-26 12:56 | XMS REPORT | Continuity of Care Document ---
Author Author [facility] Organization [facility] Address Unknown Phone Unavailable Support Name Relationship Address Phone SHIRLEY LAW MD Caregiver [address] [place] [address] [place] [phone] ROMAIN BURGER FACS CWS Caregiver [address] [place] [address] [address] [place] [phone] PEARL ZEE DPOA Next Of Kin [address] [facility] [address] [place], [place] [id number] Insurance Providers Payer Name Policy Number Subscriber Name Relationship Medicare [id number] Paula Zee 19 Self Advance Directives Directive Response Recorded Date/Time Ordered Resuscitation Status Full Code 06/21/14 10:44am Problems No known problems or medical conditions. Medications Medication Dose Route Sig Days/Qty Instructions Order Date Discontinued Date Status Aspirin 81 Mg PO DAILY 12/19/08 03/12/11 Discontinued Irbesartan 300 Mg PO DAILY 12/19/08 12/01/10 Discontinued Niacin/Simvastatin 1 Bottle PO 12/19/08 02/06/11 Discontinued Warfarin Sodium 2 Mg PO BEDTIME 12/19/08 12/01/10 Discontinued Spironolactone 25 Mg PO DAILY 12/19/08 12/01/10 Discontinued Glucosamine Sulfate 1,000 Mg PO TWICE A DAY 12/19/08 12/01/10 Discontinued Digoxin 125 Mcg PO DAILY 12/19/08 12/01/10 Discontinued Furosemide 40 Mg PO TWICE A DAY 12/19/08 Active Albuterol 17 Gm IH THREE TIMES A DAY 12/19/08 Active Sulfamethoxazole/Trimethoprim 1 Tab PO TWICE A DAY 7 Days 12/01/1005/19 Discontinued [bystolic] 20 Mg PO DAILY 12/01/10 02/06/11 Discontinued Potassium Chloride 10 Meq PO DAILY 12/01/10 03/08/11 Discontinued Benazepril Hcl 40 Mg PO DAILY 12/01/10 02/06/11 Discontinued Potassium Chloride 20 Meq PO THREE TIMES A DAY 10/31/11 Active Citalopram Hydrobromide 20 Mg PO BEDTIME 03/08/11 06/08/11 Discontinued Sennosides 8.6 Mg PO DAILY 03/08/11 06/08/11 Discontinued Guaifen/Dm Hb/P-Ephedrine 1 Cap PO TWICE A DAY 03/12/11 06/08/11 Discontinued Mirtazapine 15 Mg PO BEDTIME 03/12/11 06/08/11 Discontinued Aspirin 1 Tab PO DAILY 06/21/14 Active Diltiazem HCl 180 Mg PO TWICE A DAY 06/21/14 Active [Duoneb] NEEDED 06/21/14 Active Losartan Potassium 100 Mg PO DAILY 06/21/14 Active Dabigatran Etexilate Mesylate 1 Cap PO TWICE A DAY TAKE WITH FULL GLASS OF WATER. 06/21/14 Active Carvedilol 1 Tab PO TWICE A DAY 06/24/14 Active Social History Social History Problem Response Recorded Date/Time Chewing Tobacco Status No 06/21/2014 10:25am Hx Substance Use No 06/21/2014 10:25am Hx Alcohol Use No 06/21/2014 10:25am Has the pt used tobacco in the last 12 months No 06/21/2014 10:25am Query Response Start Date Stop Date Smoking Status Former smoker Hospital Discharge Instructions No hospital discharge instructions. Plan of Care No plan of care. Functional Status No functional status results. Allergies, Adverse Reactions, Alerts Allergen Type Severity Reaction Status Last Updated Sulfa (Sulfonamide Antibiotics) Adverse Reaction Mild GI SYMPTOMS Active 06/21/14 Digoxin Allergy Unknown Active 06/08/11 Trimethoprim Adverse Reaction Mild GI SYMPTOMS Active 06/21/14 Immunizations Name Given Type Hx Influenza Vaccination Y EARLY 2010? CHECK [facility] OFFICE, GETS IT YEARLY Historical Hx Pneumococcal Vaccination Y 2003 Historical Hx Influenza Vaccination Y EARLY 2010? CHECK [facility] OFFICE, GETS IT YEARLY Historical Hx Tetanus Diptheria Y 2005 Historical Vital Signs Acute Vital Signs Vital Response Date/Time Temperature (Fahrenheit) 97.7 deg F (96.8 - 99.1) Temperature (Calculated Celsius) 36.60191 degrees C (36.0 - 37.3) Temperature Source Temporal Pulse Rate (adult) 61 bpm (60 - 100) Respiratory Rate 16 breaths/min (10 - 20) O2 Sat by Pulse Oximetry 100 % (90 - 100) Oxygen Delivery Method Room Air Blood Pressure 112/57 mm Hg Blood Pressure Source Automatic Cuff Height 5 ft 2 in Weight 167 lb Body Mass Index 30.0 kg/m^2 Results Test Source Date Result Interp. Ref. Range Comments Alanine Aminotransferase (ALT/SGPT) October 04, 2013 1:25pm 21 U/L N 9-52 Albumin October 04, 2013 1:25pm 3.6 G/DL N 3.5-5.0 Albumin/Globulin Ratio October 04, 2013 1:25pm 1.1 RATIO N 1.1-2.2 Alkaline Phosphatase October 04, 2013 1:25pm 84 U/L N 38-126 Anion Gap May 27, 2014 12:03pm 6 MEQ/L N 5-15 Aspartate Amino Transf (AST/SGOT) October 04, 2013 1:25pm 17 U/L N 14-36 B-Type Natriuretic Peptide February 10, 2011 5:55am 501 PG/ML H 15-100 BUN/Creatinine Ratio May 27, 2014 12:03pm 18 RATIO N 6-26 Band Neutrophils # February 06, 2011 3:35pm 0.1 T/MM3 - Band Neutrophils % February 06, 2011 3:35pm 1.0 % N 0-6 Basophils # (Auto) June 08, 2011 5:12pm 0.0 T/MM3 N 0-0.2 Basophils # (Manual) February 08, 2011 4:15am 0.1 T/MM3 N 0-0.2 Basophils % (Manual) February 08, 2011 4:15am 1.0 % N 0-2 Basophils (%) (Auto) June 08, 2011 5:12pm 0.4 % N 0-2 Blood Urea Nitrogen May 27, 2014 12:03pm 20.0 MG/DL H 7-17 Calcium Level May 27, 2014 12:03pm 9.0 MG/DL N 8.4-10.2 Calculated Osmolality May 27, 2014 12:03pm 272 MOSM/KG N 261-280 Carbon Dioxide Level May 27, 2014 12:03pm 30 MEQ/L N 22-30 Chloride Level May 27, 2014 12:03pm 104 MEQ/L N 98-107 Cholesterol Level February 06, 2011 3:30pm 161 MG/DL N 132-199 COMMENT RUN WITH BLOOD IN LABCOMMENT USE BLOOD IN LAB Cholesterol/HDL Ratio February 06, 2011 3:30pm 2.9 RATIO N 0-4.0 COMMENT RUN WITH BLOOD IN LABCOMMENT USE BLOOD IN LAB Conjugated Bilirubin June 08, 2011 5:12pm 0.00 MG/DL N 0.00-0.30 Creatinine May 27, 2014 12:03pm 1.1 MG/DL N 0.7-1.2 D-Dimer May 15, 2014 4:30pm < 150 NG/ML 0-230 <230 NG/ML D-DU= PRESUMPTIVE NEGATIVE FOR PE OR DVT>230 NG/ML D-DU=ADDITIONAL EVAL FOR PE OR DVT RECOMMENDED Digoxin Level December 20, 2008 5:45am 1.6 NG/ML N 0.8-2.0 Eosinophils # (Auto) June 08, 2011 5:12pm 0.1 T/MM3 N 0-0.5 Eosinophils # (Manual) February 08, 2011 4:15am 0.1 T/MM3 N 0-0.5 Eosinophils % (Manual) February 08, 2011 4:15am 1.0 % N 0-4 Eosinophils (%) (Auto) June 08, 2011 5:12pm 1.5 % N 0-4 Globulin October 04, 2013 1:25pm 3.3 G/DL N 2.4-3.6 Glucose Level May 27, 2014 12:03pm 94 MG/DL N 65-110 Hematocrit June 08, 2011 5:12pm 41.3 % N 36-46 Hemoglobin June 08, 2011 5:12pm 13.2 GM/DL N 12-16 Hepatitis A IgM Antibody February 06, 2011 3:30pm Negative - COMMENT RUN WITH BLOOD IN LABCOMMENT USE BLOOD IN LAB Hepatitis B Core IgM Antibody February 06, 2011 3:30pm Negative - COMMENT RUN WITH BLOOD IN LABCOMMENT USE BLOOD IN LAB Hepatitis B Surface Antigen February 06, 2011 3:30pm Negative - COMMENT RUN WITH BLOOD IN LABCOMMENT USE BLOOD IN LAB Hepatitis C Antibody February 06, 2011 3:30pm Negative - COMMENT RUN WITH BLOOD IN LABCOMMENT USE BLOOD IN LAB LDL Cholesterol, Calculated February 06, 2011 3:30pm 95.2 N 66-159 COMMENT RUN WITH BLOOD IN LABCOMMENT USE BLOOD IN LAB Lymphocytes # (Auto) June 08, 2011 5:12pm 0.5 T/MM3 L 1-4.8 Lymphocytes # (Manual) February 08, 2011 4:15am 0.4 T/MM3 L 1-4.8 Lymphocytes % (Manual) February 08, 2011 4:15am 4.0 % L 23-45 Lymphocytes (%) (Auto) June 08, 2011 5:12pm 9.8 % L 23-45 Magnesium Level December 20, 2008 5:45am 2.2 MG/DL DN 1.6-2.3 Mean Corpuscular Hemoglobin June 08, 2011 5:12pm 28.5 UUG N 26-34 Mean Corpuscular Hemoglobin Concent June 08, 2011 5:12pm 32.0 GM/DL N 31-37 Mean Corpuscular Volume June 08, 2011 5:12pm 89.2 UM3 N 80-100 Mean Platelet Volume June 08, 2011 5:12pm 10.9 UM3 N 9.4-12.4 Monocytes # (Auto) June 08, 2011 5:12pm 0.6 T/MM3 N 0-0.8 Monocytes # (Manual) February 08, 2011 4:15am 0.3 T/MM3 N 0-0.8 Monocytes % (Manual) February 08, 2011 4:15am 3.0 % N 0-9.0 Monocytes (%) (Auto) June 08, 2011 5:12pm 12.3 % H 0-9.0 Neutrophils # (Auto) June 08, 2011 5:12pm 3.5 T/MM3 N 1.8-7.7 Neutrophils # (Manual) February 08, 2011 4:15am 8.3 T/MM3 H 1.8-7.7 Neutrophils % (Manual) February 08, 2011 4:15am 91.0 % H 33-66 Neutrophils (%) (Auto) June 08, 2011 5:12pm 75.8 % H 33-66 Ova and Parasites (LAB) February 07, 2011 12:00pm Ref lab rpt scanned - --- 02/17/11 0851 ---OAP previously reported as: SENT OUT Phosphorus Level December 19, 2008 5:10am 3.5 MG/DL N 2.5-4.5 Platelet Count June 08, 2011 5:12pm 175 T/MM3 N 130-400 Potassium Level May 27, 2014 12:03pm 4.1 MEQ/L N 3.6-5 Prealbumin December 18, 2008 11:40pm 31.3 MG/DL N 17.6-36.0 Prothromb Time International Ratio May 15, 2014 4:30pm 1.28 H 0.81- 1.09 THERAPUTIC RANGE=2.00-3.00 FOR ANTI-THROMBOSIS THERAPUTIC RANGE=2.50- 3.50 FOR IMPLANTED VALVE RDW Standard Deviation June 08, 2011 5:12pm 45.1 FL N 36.9-50.2 Red Blood Count June 08, 2011 5:12pm 4.63 M/MM3 N 4.00-5.20 Sodium Level May 27, 2014 12:03pm 140 MEQ/L N 134-144 Thyroid Stimulating Hormone (TSH) December 18, 2008 11:40pm 0.70 MIU/ML N 0.47-4.68 Total Bilirubin October 04, 2013 1:25pm 0.30 MG/DL N 0.20-1.30 Total Protein October 04, 2013 1:25pm 6.9 G/DL N 6.3-8.2 Triglycerides Level February 06, 2011 3:30pm 54 MG/DL N 35-135 COMMENT RUN WITH BLOOD IN LABCOMMENT USE BLOOD IN LAB Troponin I June 08, 2011 5:12pm < 0.012 ng/ml 0-0.12 Unconjugated Bilirubin June 08, 2011 5:12pm 0.00 MG/DL N 0.00-1.10 Urine Amorphous Phosphates March 13, 2011 12:02am Few - Has specimen been collected/obtained? Y Urine Bacteria February 06, 2011 4:10pm 2+ H - Has specimen been collected/obtained? Y Urine Bilirubin June 08, 2011 6:30pm Negative - Has specimen been collected/obtained? Y Urine Blood June 08, 2011 6:30pm Negative - Has specimen been collected/obtained? Y Urine Collection Type June 08, 2011 6:30pm Voided - Has specimen been collected/obtained? Y Urine Color June 08, 2011 6:30pm Yellow - Has specimen been collected/obtained? Y Urine Culture Indicated February 06, 2011 4:10pm Cult reflexed &setup - Has specimen been collected/obtained? Y Urine Glucose (UA) June 08, 2011 6:30pm Negative - Has specimen been collected/obtained? Y Urine Hyaline Casts December 18, 2008 8:56pm 0-1 /LPF - COMMENT SET UP CULTURE IF INDICATEDHas specimen been collected/obtained? Y Urine Ketones June 08, 2011 6:30pm Negative - Has specimen been collected/obtained? Y Urine Leukocyte Esterase June 08, 2011 6:30pm 2+ H - Has specimen been collected/obtained? Y Urine Nitrite June 08, 2011 6:30pm Negative - Has specimen been collected/obtained? Y Urine Protein June 08, 2011 6:30pm Negative - Has specimen been collected/obtained? Y Urine RBC March 13, 2011 12:02am None seen /HPF - Has specimen been collected/obtained? Y Urine Renal Epithelial Cells December 01, 2010 2:23pm 5-10 /HPF - Has specimen been collected/obtained? Y Urine Specific [place] June 08, 2011 6:30pm 1.010 L - Has specimen been collected/obtained? Y Urine Squamous Epithelial Cells March 13, 2011 12:02am Few - Has specimen been collected/obtained? Y Urine Transitional Epithelial Cells February 06, 2011 4:10pm 3-5 /HPF - Has specimen been collected/obtained? Y Urine Turbidity June 08, 2011 6:30pm Clear - Has specimen been collected/obtained? Y Urine Urobilinogen June 08, 2011 6:30pm Normal EU/DL - Has specimen been collected/obtained? Y Urine WBC June 08, 2011 6:30pm 1-3 /HPF - Has specimen been collected/obtained? Y Urine pH June 08, 2011 6:30pm 6.5 - Has specimen been collected/ obtained? Y VLDL Cholesterol February 06, 2011 3:30pm 10.8 MG/DL N 0-28 COMMENT RUN WITH BLOOD IN LABCOMMENT USE BLOOD IN LAB Vitamin B12 Level December 18, 2008 11:40pm 321 PG/ML N 239-931 White Blood Count June 08, 2011 5:12pm 4.6 T/MM3 N 4.5-11.0 Chemistry Specimen Hemolysis May 27, 2014 12:03pm < 15 0-25 0-25 : No Hemolysis.26-70: Slight Hemolysis - can falsely elevate K and Urine Protein. 71-285: Moderate Hemolysis - can falsely elevate K, Troponin I, CA 19-9, PTH, CSF GLucose, and Urine Protein, and can falsely decrease Phenytoin. 286-999: Gross Hemolysis - can falsely elevate K, Troponin I, CA 19-9, PTH, CSF Glucose, and Urine Protine, and can falsely decrease Phenytoin. Recommend specimen recollection. Lab Scanned Report May 27, 2014 8:36pm LAB TEST FORM REQUEST [id number] - HDL Cholesterol Direct February 06, 2011 3:30pm 55 MG/DL N 40-60 COMMENT RUN WITH BLOOD IN LABCOMMENT USE BLOOD IN LAB Turbidity May 27, 2014 12:03pm < 20 0-20 Glomerular Filtration Rate Calc May 27, 2014 12:03pm 48 - Immature Granulocyte # (Auto) June 08, 2011 5:12pm 0.01 T/MM3 N 0.00- 0.03 Immature Granulocyte % (Auto) June 08, 2011 5:12pm 0.2 % N 0.0-0.5 Icterus Index May 27, 2014 12:03pm < 2 0-7 IL-Bpp-E-Type Natriuretic Peptide May 27, 2014 12:03pm 5040 PG/ML H 0-175 Rule in cut points: <50 years old=450; 50-75 years old=900; >75 years old=1800; When utilizing ProBNP rule-in cut points, adjustment for impaired renal function is typically not required. Urine Microscopic Not Indicated March 08, 2011 5:41pm Not indicated - Has specimen been collected/obtained? Y Blood Culture Blood February 06, 2011 3:35pm Streptococcus Pneumoniae Stool Culture Stool February 07, 2011 12:00pm Urine Culture Urine, Clean Catch Voided February 06, 2011 4:28pm Escherichia Coli Procedures Procedure Status Date Provider(s) METABOLIC PANEL TOTAL CA completed 05/15/14 ASSAY OF NATRIURETIC PEPTIDE completed 05/15/14 FIBRIN DEGRADATION QUANT completed 05/15/14 PROTHROMBIN TIME completed 05/15/14 METABOLIC PANEL TOTAL CA completed 05/27/14 ASSAY OF NATRIURETIC PEPTIDE completed 05/27/14 Esophagogastroduodenoscopy (EGD) with closed biopsy completed 06/24/14 ROMAIN BURGER MD, FACS, CWS Colonoscopy completed 06/24/14 ROMAIN BURGER MD, FACS, CWS Encounters Encounter Location Date/Time Registered [facility] 05/27/14 12:29pm Registered [facility] 05/15/14 4:34pm
--- OUTSIDE RECORDS SUMMARY | 2016-08-26 12:56 | XMS REPORT | Referral Summary ---
Author Author [facility], [facility] Organization [facility] Address Unknown Phone Unavailable Care Team Providers Care Medical Technicians Name Role Phone Anabela Woods Primary Care Physician [phone] Encounter VC Date(s): 05/12/16 - 05/12/16 [facility], [address] [place] [id number] Discharge Diagnosis: Depression Discharge Diagnosis: Dementia Discharge Diagnosis: Hypertension Discharge Disposition: 01-Home or Self Care Attending Physician: Shira Woods DO Admitting Physician: Shira Woods DO Vital Signs Most recent to 1 oldest [Reference Range]: Temperature Tympanic 36.5 degC [36.6-38.1 degC] *LOW* (05/12/16 1:13 PM) Peripheral Pulse 94 bpm Rate [60-100 bpm] (05/12/16 1:13 PM) Blood Pressure 154/92 mmHg [90-140/60-90 mmHg] *HI* (05/12/16 1:13 PM) SpO2 98 % (05/12/16 1:13 PM) Problem List Condition Effective Dates Status [...] arteriosclerosis (disorder)(Confirmed ) Coronary artery Active disease(Confirmed) Ear Resolved infections(Confirmed ) Hx of renal artery Active stenosis(Confirmed) Headaches(Confirmed) Active Hearing Active loss(Confirmed) Heart Active attack(Confirmed) Hypercholesterolemia Active (Confirmed) Hypertension(Confirm Active ed) Kidney Active disease(Confirmed) Obesity(Confirmed) Active Dementia(Confirmed) Active Pulmonary Active HTN(Confirmed) Rheumatoid Active arthritis(Confirmed) Depression(Confirmed Active ) S/P coronary artery Active stent placement(Confirmed) TIA [...] upet Active trimethoprim GI upet Active Medications Aricept 10 mg oral tablet 10 mg 1 tabs, Oral, Bedtime (once a day), # 30 tabs, 0 Refill(s), other reason ( Rx) Start Date: 10/02/15 Status: Ordered aspirin 325 mg oral tablet 325 mg [...] 0 Refill(s) Start Date: 08/26/14 Status: Ordered FLUoxetine 20 mg oral tablet 20 mg 1 tabs, Oral, Daily, # 30 tabs, 0 Refill(s), Pharmacy: [facility] # [id number], 1 tabs Oral Daily Start Date: 05/12/16 Status: Ordered folic acid 1 mg oral tablet 1 mg 1 tabs, Oral, Daily, # 30 tabs, 0 Refill(s) Start Date: 09/22/15 Status: Ordered Klor-Con M20 20 mEq, Oral, TIDWM, 0 Refill(s) Start Date: 03/07/15 Status: Ordered Lasix 40 mg oral tablet 40 mg, Oral, BID, # 180 tabs, 1 Refill(s), Pharmacy: [facility] #[id number], 40 mg Oral BID Start Date: 10/09/15 Status: Ordered losartan 100 mg, Oral, Bedtime (once a day), 0 Refill(s) Start Date: 03/07/15 Status: Ordered Pradaxa 75 mg oral capsule 75 mg 1 caps, Oral, BID, # 60 caps, 0 Refill(s) Start Date: 01/02/15 Status: Ordered Vitamin B-12 1 tabs, Oral, Daily, 0 Refill(s) Start Date: 09/22/15 Status: Ordered Results No data available for this section Immunizations Given and Recorded Vaccine Date Status Refusal Reason influenza virus vaccine, inactivated 03/24/16 Given influenza virus vaccine, inactivated 03/10/15 Given influenza virus vaccine, live 07/06/13 Given influenza virus vaccine, live 03/23/12 Given pneumococcal 13-valent conjugate vaccine1 08/26/14 Given tetanus-diphth toxoids (Td) adult/adol 12/26/14 Recorded 1Result Comment: charting by Cristy Nolasco, RN, [...] explain anemia, follow up with PCP or fitter type bar and segment in 4-[address] Sabino gongora 5left 62 stents, 7See Conversion Document. Social History Social History Type Response Smoking Status Former smoker Assessment and Plan Extracted from: Title: Office Visit Note Author: Shira Woods DO Date: 05/12/16 Assessment/Plan Dementia I continue to hold that there may be some improvement in her dementia symptoms withany impact that we can make on her depression. We'll continue to monitor. Ordered: Office Visit Level 4 Est 50827 Depression As patient has tolerated the fluoxetine well and this is the only medication that doesn't her active with her heart medications we will go ahead and increase the dose to 20 mg and have the patient return to clinic in about 8 weeks to see how she is doing. Ordered: Office Visit Level 4 Est 96821 Hypertension Patient hasn't taken her antihypertensive today, she will return to clinic for follow-up and we will make sure that her blood pressure is better at that time. Ordered: Office Visit Level 4 Est [id number]
--- OUTSIDE RECORDS SUMMARY | 2016-08-26 12:56 | XMS REPORT | Continuity of Care Document ---
Author Author [facility] Organization [facility] Address Unknown Phone Unavailable Support Name Relationship Address Phone SEPTEMBER, ISADORA M DO Caregiver [address] [place] [address] Unavailable RENETTA SCOTT DO Caregiver Unknown Unavailable PEARL ZEE Next Of Kin [address] [place] [address] Insurance Providers Guarantor Paula Zee Address [address] [place] [address] Email NO COMP NO MORE CALLS Payer Medicare Policy Number [id number] Subscriber's Name Paula Zee Relationship 18 Self Effective Date 91 Advance Directives Directive Response Recorded Date/Time Advanced Directives Type None 10/15/15 5:10pm Chief Complaint and Reason for Visit Chief Complaint Syncope Reason for Visit Syncope [id number] Problems Active Problems Medical Problem Onset Date Status CAD (coronary artery disease) Unknown Chronic CHF (congestive heart failure) Unknown Chronic Coagulopathy Unknown Chronic HTN (hypertension) Unknown Chronic Hematoma Unknown Acute Hemorrhoids, internal, with bleeding Unknown Acute Laceration Unknown Acute Symptomatic anemia Unknown Acute Symptomatic anemia Unknown Acute Syncope Unknown Acute UTI (urinary tract infection) Unknown Acute Vaginal bleeding Unknown Acute Past Problems Medical Problem Onset Date Fatigue Unknown Nausea Unknown Medications Current Home Medications Medication Dose Units Route Directions Days Qty Instructions Start Date Carvedilol (Coreg) 25 Mg Tablet 25 Mg Oral Twice A Day 06/24/14 Dabigatran Etexilate Mesylate (Pradaxa) 75 Mg Capsule 75 Mg Oral Twice A Day 10/28/14 Diltiazem Hcl (Cartia Xt) 180 Mg Capsule 180 Mg Oral Twice A Day 10/28/14 Donepezil Hcl 10 Mg Tablet 10 Mg Oral Daily 09/22/15 Furosemide 40 Mg Tablet 40 Mg Oral Twice A Day 10/15/15 Losartan Potassium 100 Mg Tablet 100 Mg Oral Daily 06/21/14 Nitrofurantoin Monohyd/M-Cryst (Macrobid 100 Mg Capsule) 100 Mg Capsule 100 Mg Oral Twice A Day 5 Days 10 Capsule 10/15/15 Ondansetron (Zofran Odt) 4 Mg Tab.rapdis 4 Mg Oral Q8h @ 0100/0900/1700 10 Tablet Orally disintegrating tablet 09/22/15 Past Home Medications Medication Directions Ordered Status Acetaminophen With Codeine (Tylenol With Codeine #3 Tablet) 1 Each Tablet, 1 Tab Oral Every Six Hours for Pain 12/26/14 Discontinued Aspirin (Aspir 81) 81 Mg Tablet.dr, 1 Tab Oral Daily 10/28/14 Discontinued Aspirin (Aspir 81) 81 Mg Tablet.dr, 1 Tab Oral Daily 06/21/14 Discontinued Aspirin [...] Onset Date Status Hx Substance Use No 10/15/2015 6:38pm Not Applicable Not Applicable Hx Alcohol Use No 10/15/2015 6:38pm Not Applicable Not Applicable Has the pt used tobacco in the last 12 months No 07/20/2014 5:16pm Not Applicable Not Applicable Tobacco Usage none 07/20/2014 7:22pm Not Applicable Not Applicable Query Response Start Date Stop Date Smoking Status Never smoker Hospital Discharge Instructions No hospital discharge instructions. Plan of Care Discharge Date 10/15/15 6:49pm Disposition 01 DISCHARGED HOME, SELF-CARE Condition at Discharge Stable Instructions/Education Provided Urinary Tract Infection Prescriptions See Medication Section Referrals RENETTA SCOTT DO Order Date: 1 Week Note: Additional Instructions/Education Take the antibiotics as directed. Call your PCM to follow up. Care Plan and Goals Physician Care Plan Problem: UTI Goal: Follow up with primary care provider Instructions: Take medications and follow care plan as discussed/written Functional Status No functional status results. Allergies, Adverse Reactions, Alerts Allergen Type Severity Reaction Status Last Updated Sulfa (Sulfonamide Antibiotics) Adverse Reaction Mild GI SYMPTOMS Active 10/15/15 Digoxin Allergy Unknown NAUSEA Active 10/15/15 Trimethoprim Adverse Reaction Mild GI SYMPTOMS Active 10/15/15 Immunizations Query Response on File Recorded Date/Time Hx Influenza Vaccination Y 201301/30/15 9:32pm Hx Pneumococcal Vaccination Y 200301/30/15 9:32pm Hx Tetanus, Diptheria, Pertussis UNKNOWN - WILL UPDATE 12/26/14 01/30/15 9: 32pm Hx Influenza Vaccination Y 201301/30/15 9:32pm Hx Tetanus Diptheria Y 200501/30/15 9:32pm Hx Tetanus, Diptheria, Pertussis UNKNOWN - WILL UPDATE 12/26/14 01/30/15 9: 32pm Influenza Vaccine Hx 201410/15/15 6:38pm Vital Signs Acute Vital Signs Vital Response Date/Time Temperature (Fahrenheit) 98.3 deg F (96.8 - 99.1) 10/15/2015 6:49pm Temperature (Calculated Celsius) 36.10261 degrees C (36.0 - 37.3) 10/15/2015 6:49pm Pulse Rate (adult) 60 bpm (60 - 100) 10/15/2015 6:49pm Respiratory Rate 20 breaths/min (10 - 20) 10/15/2015 6:49pm O2 Sat by Pulse Oximetry 99 % (90 - 100) 10/15/2015 6:49pm Blood Pressure 149/64 mm Hg 10/15/2015 6:49pm Height (Feet) 5 feet 10/15/2015 6:40pm Height (Inches) 2.00 inches 10/15/2015 6:40pm Weight (Kilograms) 68.500 kg 10/15/2015 6:40pm Body Mass Index (BMI) 27.0 10/15/2015 6:40pm Results Laboratory Results Test Name Result Units Flags Reference Collection Date/Time Result Date/ Time Comments Total Bilirubin 0.50 MG/DL 0.20-1.30 09/22/2015 2:47pm [...] 15 U/L 9-52 09/22/2015 2:47pm 09/21 3:01pm Lipase 154 U/L 23-300 09/22/2015 2:47pm 09/22/2015 3:01pm White Blood Count 5.9 T/MM3 4.5-11.0 10/15/2015 5:37pm 10/15/2015 5: 51pm Red Blood Count 4.41 M/MM3 4.00-5.20 10/15/2015 5:37pm 10/15/2015 5: 51pm Hemoglobin 13.1 GM/DL 12-16 10/15/2015 5:37pm 10/15/2015 5:51pm Hematocrit 41.3 % 36-46 10/15/2015 5:37pm 10/15/2015 5:51pm Mean Corpuscular Volume 93.7 UM3 80-100 10/15/2015 5:37pm 10/15/2015 5: 51pm Mean Corpuscular Hemoglobin 29.7 UUG 26-34 10/15/2015 5:37pm 2015 5:51pm Mean Corpuscular Hemoglobin Concent 31.7 GM/DL 31-37 10/15/2015 5:37pm 10/15/2015 5:51pm RDW Standard Deviation 47.2 FL 36.9-50.2 10/15/2015 5:37pm 10/15/2015 5 :51pm Platelet Count 186 T/MM3 130-400 10/15/2015 5:37pm 10/15/2015 5:51pm Mean Platelet Volume 10.8 UM3 9.4-12.4 10/15/2015 5:37pm 10/15/2015 5: 51pm Neutrophils (%) (Auto) 71.4 % H 33-66 10/15/2015 5:37pm 10/15/2015 5: 51pm Lymphocytes (%) (Auto) 15.8 % L 23-45 10/15/2015 5:37pm 10/15/2015 5: 51pm Monocytes (%) (Auto) 7.7 % 0-9.0 10/15/2015 5:37pm 10/15/2015 5:51pm Eosinophils (%) (Auto) 4.6 % H 0-4 10/15/2015 5:37pm 10/15/2015 5:51pm Basophils (%) (Auto) 0.3 % 0-2 10/15/2015 5:37pm 10/15/2015 5:51pm Immature Granulocyte % (Auto) 0.2 % 0.0-0.5 10/15/2015 5:37pm 2015 5:51pm Absolute Neutrophils (auto) 4.2 T/MM3 1.8-7.7 10/15/2015 5:37pm 2015 5:51pm Absolute Lymphocytes (auto) 0.9 T/MM3 L 1-4.8 10/15/2015 5:37pm 2015 5:51pm Absolute Monocytes (auto) 0.5 T/MM3 0-0.8 10/15/2015 5:37pm 10/15/2015 5:51pm Absolute Eosinophils (auto) 0.3 T/MM3 0-0.5 10/15/2015 5:37pm 2015 5:51pm Absolute Basophils (auto) 0.0 T/MM3 0-0.2 10/15/2015 5:37pm 10/15/2015 5:51pm Absolute Immature Granulocyte (auto 0.01 T/MM3 0.00-0.03 10/15/2015 5: 37pm 10/15/2015 5:51pm Icterus Index < 2 0-7 10/15/2015 5:37pm 10/15/2015 6:05pm Chemistry Specimen Hemolysis < 15 0-25 10/15/2015 5:37pm 10/15/2015 6 :05pm 0-25: Specimen Exhibited No Hemolysis. Turbidity < 20 0-20 10/15/2015 5:37pm 10/15/2015 6:05pm Sodium Level 140 MEQ/L 134-144 10/15/2015 5:37pm 10/15/2015 5:52pm Potassium Level 4.3 MEQ/L 3.6-5 10/15/2015 5:37pm 10/15/2015 5:52pm Chloride Level 104 MEQ/L 98-107 10/15/2015 5:37pm 10/15/2015 5:52pm Carbon Dioxide Level 28 MEQ/L 22-30 10/15/2015 5:37pm 10/15/2015 5: 52pm Anion Gap 8 MEQ/L 5-15 10/15/2015 5:37pm 10/15/2015 5:52pm Blood Urea Nitrogen 20.0 MG/DL H 7-17 10/15/2015 5:37pm 10/15/2015 5: 52pm Creatinine 1.1 MG/DL 0.7-1.2 10/15/2015 5:37pm 10/15/2015 5:52pm BUN/Creatinine Ratio 18 RATIO 6-26 10/15/2015 5:37pm 10/15/2015 5:52pm Glomerular Filtration Rate Calc 47 10/15/2015 5:37pm 10/15/2015 5: 52pm Glucose Level 110 MG/DL 65-110 10/15/2015 5:37pm 10/15/2015 5:52pm Calculated Osmolality 273 MOSM/KG 261-280 10/15/2015 5:37pm 10/15/2015 5:52pm Calcium Level 9.0 MG/DL 8.4-10.2 10/15/2015 5:37pm 10/15/2015 5:52pm Troponin I 0.022 ng/ml 0-0.12 10/15/2015 5:37pm 10/15/2015 6:05pm Troponin values with a difference of 55% increase from orginal troponin value represent a true biological DELTA value. (%increase Calc=Orginal Troponin value, divided by subsequent Troponin value, multiplied by 100) Prolactin 23.2 NG/ML 10/15/2015 5:37pm 10/15/2015 6:10pm Normal Female (Non-): 3.0-18.6 ng/ml; Males: 3.7-17.9 ng/ml Urine Collection Type CLEANCATCH-MIDSTREAM 10/15/2015 5:59pm 2015 6:07pm Urine Color YELLOW YELLOW 10/15/2015 5:59pm 10/15/2015 6:07pm Urine Turbidity TURBID CLEAR 10/15/2015 5:59pm 10/15/2015 6:07pm Urine Specific [place] 1.020 1.015-1.025 10/15/2015 5:59pm 2015 6:07pm Urine pH 7.5 5.0-8.0 10/15/2015 5:59pm 10/15/2015 6:07pm Urine Leukocyte Esterase 1+ A NEGATIVE 10/15/2015 5:59pm 10/15/2015 6: 07pm Urine Nitrite NEGATIVE NEGATIVE 10/15/2015 5:59pm 10/15/2015 6:07pm Urine Protein NEGATIVE NEGATIVE 10/15/2015 5:59pm 10/15/2015 6:07pm Urine Glucose (UA) NEGATIVE NEGATIVE 10/15/2015 5:59pm 10/15/2015 6: 07pm Urine Ketones NEGATIVE NEGATIVE 10/15/2015 5:59pm 10/15/2015 6:07pm Urine Urobilinogen 1.0 EU/DL NORMAL 10/15/2015 5:59pm 10/15/2015 6: 07pm Urine Bilirubin NEGATIVE NEGATIVE 10/15/2015 5:59pm 10/15/2015 6: 07pm Urine Blood 3+ A NEGATIVE 10/15/2015 5:59pm 10/15/2015 6:07pm Urine WBC 0-1 /HPF 0-5 10/15/2015 5:59pm 10/15/2015 6:15pm Urine RBC 0-1 /HPF 0-3 10/15/2015 5:59pm 10/15/2015 6:15pm Urine Squamous Epithelial Cells 0-5 10/15/2015 5:59pm 10/15/2015 6: 15pm Urine Bacteria 4+ H NEGATIVE 10/15/2015 5:59pm 10/15/2015 6:15pm Urine Amorphous Urates MODERATE 10/15/2015 5:59pm 10/15/2015 6: 15pm Urine Waxy Casts 0-1 /LPF 10/15/2015 5:59pm 10/15/2015 6:15pm Urine Culture Indicated CULT NOT INDICATED 10/15/2015 5:59pm 2015 6:15pm Microbiology Results Procedure Source Organism/Result Collection Date/Time Result Date/Time Result Status Urine Culture Urine, Clean Catch-Midstream CULTURE INITIATED - RESULTS PENDING 10/15/2015 5:59pm 10/15/2015 6:32pm Preliminary Procedures Procedure Status Date Provider(s) CHEST X-RAY 1 VIEW FRONTAL Completed 09/22/15 X-RAY EXAM OF ABDOMEN Completed 09/22/15 COMPREHEN METABOLIC PANEL Completed 09/22/15 URINALYSIS AUTO W/SCOPE Completed 09/22/15 ASSAY OF LIPASE Completed 09/22/15 ASSAY OF TROPONIN QUANT Completed 09/22/15 ASSAY OF TROPONIN QUANT Completed 09/22/15 COMPLETE CBC W/AUTO DIFF WBC Completed 09/22/15 ELECTROCARDIOGRAM TRACING Completed 09/22/15 HYDRATE IV INFUSION ADD-ON Completed 09/22/15 THER/PROPH/DIAG INJ IV PUSH Completed 09/22/15 TX/PRO/DX INJ SAME DRUG SOUND INSTALLATION WORKER Completed 09/22/15 EMERGENCY DEPT VISIT Completed 09/22/15291409"INJECTION, HYDRALAZINE HCL, UP TO 20 MG" Completed 09/22/15"INJECTION, HYDRALAZINE HCL, UP TO 20 MG" Completed 09/22/15"INFUSION, NORMAL SALINE SOLUTION , 1000 CC" Completed 09/22/15 Encounters Encounter Location Arrival/Admit Date Discharge/Depart Date Attending Provider Departed Emergency Room [facility] 10/15/15 5:09pm 10/15/15 6: 49pm ISADORA REYES DO Departed Emergency Room [facility] 09/22/15 2:19pm 09/22/15 6: 00pm SACHA BELL MD Recent Diagnosis
--- OUTSIDE RECORDS SUMMARY | 2016-08-26 12:56 | XMS REPORT | Referral Summary ---
Author Author [facility], [facility] Organization [facility] Address Unknown Phone Unavailable Care Team Providers Care Stretcher Operator Name Role Phone Anabela Woods Primary Care Physician [phone] Encounter VC Date(s): 02/03/15 - 02/03/15 [facility], [address] [place] [id number] Discharge Diagnosis: Uterine prolapse Discharge Diagnosis: Post-menopausal [...] explain anemia, follow up with PCP or model photographers' in 4-[address] Sabino sanchez 5left 62 stents, 7See Conversion Document. Social History Social History Type Response Smoking Status Former smoker Assessment and Plan No data available for this section
--- OUTSIDE RECORDS SUMMARY | 2016-08-26 12:56 | XMS REPORT | Referral Summary ---
Author Author [facility], [facility] Organization [facility] Address Unknown Phone Unavailable Care Team Providers Care Building Serviceman Name Role Phone Anabela Woods Primary Care Physician [phone] Encounter VC Date(s): 02/17/15 - 02/17/15 [facility], [address] [place] [id number] Discharge Diagnosis: Third degree uterine prolapse Discharge Disposition: 01-Home or Self Care Attending [...] explain anemia, follow up with PCP or forest resource specialist in 4-6 [address]le[address] Sabino sanchez 5left 62 stents, 7See Conversion Document. Social History Social History Type Response Smoking Status Former smoker Assessment and Plan No data available for this section
--- OUTSIDE RECORDS SUMMARY | 2016-08-26 12:56 | XMS REPORT | Referral Summary ---
Author Author [facility], [facility] Organization [facility] Address Unknown Phone Unavailable Care Team Providers Care Administrative Sales Assistant Name Role Phone Anabela Woods Primary Care Physician [phone] Encounter VC Date(s): 05/27/15 - 05/27/15 [facility], [address] [place] [id number] Discharge Disposition: 01-Home or Self Care Attending Physician: Adriel Pepe APRN Admitting Physician: Adriel Pepe APRN Vital Signs Most recent to 1 oldest [Reference Range]: Peripheral Pulse 65 bpm Rate [60-100 bpm] (05/27/15 1:51 PM) Respiratory Rate 18 br/min [14-20 br/min] (05/27/15 1:51 PM) Blood Pressure 152/70 mmHg [90-140/60-90 mmHg] *HI* (05/27/15 1:51 PM) SpO2 97 % (05/27/15 1:51 PM) Problem List Condition Effective Dates [...] 0 Refill(s) Start Date: 03/11/15 Status: Ordered [place] 5 mg-325 mg oral tablet 1-2 tabs, Oral, q4hr, as needed for pain, 0 Refill(s) Start Date: 05/27/15 Status: Ordered Pradaxa 75 mg oral capsule 75 mg 1 caps, Oral, BID, # 60 caps, 0 Refill(s) Start Date: 01/02/15 Status: Ordered Results Hematology Most recent to 1 oldest [Reference Range]: WBC [4.8-10.8 5.6 10*3/uL 10*3/uL] (05/27/15 3:00 PM) RBC [4.00-5.20] 4.50 (05/27/15 3:00 PM) Hgb [12.0-16.0 13.5 gm/dL gm/dL] (05/27/15 3:00 PM) Hct [37.0-47.0 %] 42.4 % (05/27/15 3:00 PM) MCV [82.0-99.0 fL] 94.2 fL (05/27/15 3:00 PM) MCH [27.0-32.0 pg] 30.0 pg (05/27/15 3:00 PM) MCHC [32.0-36.0 31.8 gm/dL gm/dL] *LOW* (05/27/15 3:00 PM) RDW [11.5-14.5 %] 13.5 % (05/27/15 3:00 PM) Platelet [150-400 218 10*3/uL 10*3/uL] (05/27/15 3:00 PM) MPV [8.8-14.8 fL] 10.8 fL (05/27/15 3:00 PM) Immature 0.0 % Granulocytes (05/27/15 3:00 PM) [0.0-1.0 %] Neutrophils [51-75 72 % %] (05/27/15 3:00 PM) Lymphocytes [20-46 16 % %] *LOW* (05/27/15 3:00 PM) Monocytes [4-11 %] 8 % (05/27/15 3:00 PM) Eosinophils [0-4 %] 4 % (05/27/15 3:00 PM) Basophils [0-2 %] 0 % (05/27/15 3:00 PM) Neutro Absolute 4.02 10*3 [1.90-7.00 10*3] (05/27/15 3:00 PM) Lymph Absolute 0.91 10*3 [0.80-3.30 10*3] (05/27/15 3:00 PM) Frontier Absolute 0.44 10*3 [0.30-1.00 10*3] (05/27/15 3:00 PM) Eos Absolute 0.23 10*3 [0.00-0.50 10*3] (05/27/15 3:00 PM) Baso Absolute 0.02 10*3 [0.00-0.20 10*3] (05/27/15 3:00 PM) Chemistry Most recent to 1 oldest [Reference Range]: Sodium Lvl [135-144 141 mEq/L mEq/L] (05/27/15 3:00 PM) Potassium Lvl 4.2 mEq/L [3.5-5.2 mEq/L] (05/27/15 3:00 PM) Chloride [99-111 103 mEq/L mEq/L] (05/27/15 3:00 PM) CO2 [22-31 mEq/L] 29 mEq/L (05/27/15 3:00 PM) AGAP [3-20] 9 (05/27/15 3:00 PM) BUN [10-20 mg/dL] 15 mg/dL (05/27/15 3:00 PM) Glucose Lvl [70-99 100 mg/dL mg/dL] *HI* (05/27/15 3:00 PM) Creatinine Lvl 0.86 mg/dL [0.57-1.11 mg/dL] (05/27/15 3:00 PM) eGFR [>60 mL/min] >60 mL/min 1 (05/27/15 3:00 PM) Calcium Lvl 9.8 mg/dL [8.9-10.5 mg/dL] (05/27/15 3:00 PM) 1Result Comment: Multiply eGFR results by 1.21 for race. Immunizations Vaccine Date Refusal Reason influenza virus [...] explain anemia, follow up with PCP or sweatband separator in 4-[address] Sabino sanchez 5left 62 stents, 7See Conversion Document. Social History Social History Type Response Smoking Status Former smoker Assessment and Plan No data available for this section
--- OUTSIDE RECORDS SUMMARY | 2016-08-26 12:56 | XMS REPORT | Referral Summary ---
Author Author [facility], [facility] Organization [facility] Address Unknown Phone Unavailable Care Team Providers Care Air Support Operations Operator Name Role Phone ChuckAnabela Primary Care Physician [phone] Encounter VC Date(s): 01/02/15 - 01/02/15 [facility] [place] [id number] Discharge Diagnosis: Laceration of arm Discharge Disposition: 01-Home or Self Care Attending Physician: Jadon Corey MD Admitting Physician: Jadon Corey MD Vital Signs Most recent to 1 oldest [Reference Range]: Peripheral Pulse 72 bpm Rate [60-100 bpm] (01/02/15 11:22 AM) Respiratory Rate 16 br/min [14-20 br/min] (01/02/15 11:22 AM) Blood Pressure 154/64 mmHg [90-140/60-90 mmHg] *HI* (01/02/15 11:22 AM) Problem List Condition Effective Dates Status [...] explain anemia, follow up with PCP or funeral sales manager in 4-[address] Sabino sanchez 5left 62 stents, 7See Conversion Document. Social History Social History Type Response Smoking Status Former smoker Assessment and Plan Extracted from: Title: Office Visit Note Author: Jadon Corey MD Date: 01/02/15 Assessment/Plan Laceration of arm I didn't think that sutures were quite ready to come out yet. There is still a little bit of suggestion that the wound wasn't completely closed. I've recommended rechecking early to mid week next week. I'll be out of town we may have to Madai see her. If she has trouble with it she'll let us know. She is to keep the area clean and dry. Ordered: Office Visit Level 2 Est [id number]
--- OUTSIDE RECORDS SUMMARY | 2016-08-26 12:56 | XMS REPORT | Referral Summary ---
Author Author [facility], [facility] Medicine Organization [facility] Address Unknown Phone Unavailable Care Team Providers Care Handkerchief Folder Name Role Phone Anabela Woods Primary Care Physician [phone] Encounter VC Date(s): 07/01/15 - 07/01/15 [facility], [address] [place] [address] Discharge Disposition: 01-Home or Self Care Attending Physician: Adriel Pepe APRN Admitting Physician: Adriel Pepe APRN Vital Signs Most recent to 1 oldest [Reference Range]: Peripheral Pulse 78 bpm Rate [60-100 bpm] (07/01/15 1:47 PM) Respiratory Rate 18 br/min [14-20 br/min] (07/01/15 1:47 PM) Blood Pressure 148/72 mmHg [90-140/60-90 mmHg] *HI* (07/01/15 1:47 PM) SpO2 98 % (07/01/15 1:47 PM) Problem List Condition Effective Dates Status [...] explain anemia, follow up with PCP or restaurant inspector in 4-[address] Sabino gongora 5left 62 stents, 7See Conversion Document. Social History Social History Type Response Smoking Status Former smoker Assessment and Plan No data available for this section
--- OUTSIDE RECORDS SUMMARY | 2016-08-26 12:56 | XMS REPORT | Referral Summary ---
Author Author [facility], [facility] Organization [facility] Address Unknown Phone Unavailable Care Team Providers Care Multiple Spindle Router Operator Name Role Phone Anabela Woods Primary Care Physician [phone] Encounter VC Date(s): 03/24/16 - 03/24/16 [facility] [place] [id number] Discharge Diagnosis: Dementia Discharge Diagnosis: Encounter for immunization Discharge Diagnosis: Depression Discharge Disposition: 01-Home or Self Care Attending Physician: Shira Woods DO Admitting Physician: Shira Woods DO Vital Signs Most recent to 1 oldest [Reference Range]: Temperature Tympanic 36.4 degC [36.6-38.1 degC] *LOW* (03/24/16 1:04 PM) Peripheral Pulse 67 bpm Rate [60-100 bpm] (03/24/16 1:04 PM) Blood Pressure 130/82 mmHg [90-140/60-90 mmHg] (03/24/16 1:04 PM) SpO2 96 % (03/24/16 1:04 PM) Problem List Condition Effective Dates Status [...] Refill(s) Start Date: 08/26/14 Status: Ordered FLUoxetine 10 mg oral tablet 10 mg 1 tabs, Oral, Daily, # 30 tabs, 1 Refill(s), Pharmacy: [facility] # [id number], 1 tabs Oral Daily Start Date: 03/24/16 Status: Ordered folic acid 1 mg oral tablet 1 mg 1 tabs, Oral, Daily, # 30 tabs, 0 Refill(s) Start Date: 09/22/15 Status: Ordered Klor-Con M20 20 mEq, Oral, TIDWM, 0 Refill(s) Start Date: 03/07/15 Status: Ordered Lasix 40 mg oral tablet 40 mg, Oral, BID, # 180 tabs, 1 Refill(s), Pharmacy: [facility] #[id number], 40 mg Oral BID Start Date: 10/09/15 [...] Date Refusal Reason influenza virus vaccine, inactivated 03/24/16 influenza virus vaccine, inactivated 03/10/15 influenza virus [...] explain anemia, follow up with PCP or moose hunter in 4-[address] Sabino sanchez 5left 62 stents, 7See Conversion Document. Social History Social History Type Response Smoking Status Former smoker Assessment and Plan Extracted from: Title: Office Visit Note Author: Shira Woods DO Date: 03/24/16 Assessment/Plan Dementia We will see if treating depression helps with some of this. Ordered: Office Visit Level 4 Est 68483 Depression Due to patient's diltiazem we will have the patient on fluoxetine as it does not interact. She will try 10 mg for 6 weeks and then return to clinic and we'll reevaluate. Ordered: Office Visit Level 4 Est [id number] Encounter for immunization, Need for influenza vaccination Flu shot provided today. Ordered: Office Visit Level 4 Est [id number]
--- OUTSIDE RECORDS SUMMARY | 2016-08-26 12:57 | XMS REPORT | Referral Summary ---
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 Discharge Diagnosis: History of syncope Discharge Diagnosis: Acute UTI Discharge Disposition: 01-Home or Self Care Attending Physician: Shira Woods DO Vital Signs Most recent to 1 oldest [Reference Range]: Peripheral Pulse 70 bpm Rate [60-100 bpm] (11/06/15 2:29 PM) Respiratory Rate 18 br/min [14-20 br/min] (11/06/15 2:29 PM) Blood Pressure 130/70 mmHg [90-140/60-90 mmHg] (11/06/15 2:29 PM) SpO2 97 % (11/06/15 2:29 PM) Problem List Condition Effective Dates Status [...] 0 Refill(s) Start Date: 08/26/14 Status: Ordered folic acid 1 mg oral tablet 1 mg 1 tabs, Oral, Daily, # 30 tabs, 0 Refill(s) Start Date: 09/22/15 Status: Ordered Klor-Con M20 20 mEq, Oral, TIDWM, 0 Refill(s) Start Date: 03/07/15 Status: Ordered Lasix 40 mg oral tablet 40 mg, Oral, BID, # 180 tabs, 1 Refill(s), Pharmacy: [facility] #[id number], 40 mg Oral BID Start Date: 10/09/15 [...] explain anemia, follow up with PCP or adult basic studies teacher in 4-6 [address] Gallo 5left 62 stents, 7See Conversion Document. Social History Social History Type Response Smoking Status Former smoker Assessment and Plan Extracted from: Title: Office Visit Note Author: Shira Woods DO Date: 11/06/15 Assessment/Plan Acute UTI Resolved at this time. Ordered: Office Visit Level 4 Est 03001 History of syncope Resolved at this time. Discussed adequate water intake. 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 I also discussed with daughter that we cannot do anything about care home admissionif patient is unwilling togo there. She is stillappropriate enough in her mental facilities to make this decision for herself. Ordered: Office Visit Level 4 Est 14754
--- OUTSIDE RECORDS SUMMARY | 2016-08-26 12:57 | XMS REPORT | Referral Summary ---
Author Organization Unknown Address Unknown Phone Unavailable Care Team Providers Care Refrigerator Glazier Name Role Phone Renaldo Sparks Primary Care Physician [phone] Encounter VC Date(s): 08/26/14 - 08/26/14 Via LEYLA Lovelace, Lonnie, [address] [place] [address] Discharge Diagnosis: Need for vaccination with 13-polyvalent pneumococcal conjugate vaccine Discharge Diagnosis: Benign essential hypertension Discharge Diagnosis: Cardiac pacemaker in situ Discharge Diagnosis: Hypertension Discharge Diagnosis: Kidney disease Discharge Diagnosis: Congestive heart failure Discharge Diagnosis: Depression Discharge Diagnosis: Coronary artery disease Discharge Diagnosis: Atrial fibrillation Discharge Disposition: Home or Self Care Attending Physician: Britt Sparks MD Admitting Physician: Britt Sparks MD Vital Signs Most recent to 1 oldest [Reference Range]: Temperature Tympanic 36.7 degC [36.6-38.1 degC] (08/26/14 11:17 AM) Peripheral Pulse 78 bpm Rate [60-100 bpm] (08/26/14 11:17 AM) Blood Pressure 134/84 mmHg [90-140/60-90 mmHg] (08/26/14 11:17 AM) Problem List Condition Effective Dates Status [...] 0 Refill(s) Start Date: 08/26/14 Status: Ordered Cartia XT 180 mg/24 hours oral capsule, extended release 2 caps, Oral, Daily, # 60 caps, 0 Refill(s) Start Date: 08/26/14 Status: Ordered carvedilol 25 mg oral tablet 1 tabs, Oral, BID, take with food, # 60 tabs, 0 Refill(s) Special Instructions: take with food Start Date: 08/26/14 Status: Ordered ferrous sulfate 325 mg (65 mg elemental iron) oral tablet 1 tabs, Oral, Daily, # 30 tabs, 0 Refill(s) Start Date: 08/26/14 Status: Ordered losartan 100 mg oral tablet 1 tabs, Oral, Daily, # 30 tabs, 0 Refill(s) Start Date: 08/26/14 Status: Ordered Vitamin B-12 1000 mcg oral tablet 1 tabs, Oral, Daily, # 30 tabs, 0 Refill(s) Start Date: 08/26/14 Status: Ordered Results No data available for this section Immunizations Vaccine Date Refusal Reason influenza virus vaccine, live 07/06/13 influenza virus vaccine, live 03/23/12 pneumococcal 13-valent conjugate vaccine1 08/26/14 1Result Comment: charting by Cristy Nolasco RN, [...] explain anemia, follow up with PCP or log cutter in 4-[address] Gallo 4left 52 stents, 6See Conversion Document. Social History Social History Type Response Smoking Status Former smoker Assessment and Plan Extracted from: Title: Ambulatory Patient Education Author: Britt Sparks MD Date: 08/26/14 Cardiovascular Heart Failure Heart failure is a condition in which the heart has trouble pumping blood. This means your heart does not pump blood efficiently for your body to work well. In some cases of heart failure, fluid may back up into your lungs or you may have swelling (edema ) in your lower legs. Heart failure is usually a long-term ( chronic ) condition. It is important for you to take good care of yourself and follow your caregiver's treatment plan. CAUSES Some health conditions can cause heart failure. Those health conditions include : High blood pressure (hypertension ) causes the heart muscle to work harder than normal. When pressure in the blood vessels is high, the heart needs to pump (contract ) with more force in order to circulate blood throughout the body. High blood pressure eventually causes the heart to become stiff and weak. Coronary artery disease (CAD) is the buildup of cholesterol and fat ( plaque ) in the arteries of the heart. The blockage in the arteries deprives the heart muscle of oxygen and blood. This can cause chest pain and may lead to a heart attack. High blood pressure can also contribute to CAD. Heart attack (myocardial infarction ) occurs when 1 or more arteries in the heart become blocked. The loss of oxygen damages the muscle tissue of the heart. When this happens, part of the heart muscle dies. The injured tissue does not contract as well and weakens the heart's ability to pump blood. Abnormal heart valves can cause heart failure when the heart valves do not open and close properly. This makes the heart muscle pump harder to keep the blood flowing. Heart muscle disease (cardiomyopathy or myocarditis ) is damage to the heart muscle from a variety of causes. These can include drug or alcohol abuse, infections, or unknown reasons. These can increase the risk of heart failure. Lung disease makes the heart work harder because the lungs do not work properly. This can cause a strain on the heart, leading it to fail. Diabetes increases the risk of heart failure. High blood sugar contributes to high fat (lipid ) levels in the blood. Diabetes can also cause slow damage to tiny blood vessels that carry important nutrients to the heart muscle. When the heart does not get enough oxygen and food, it can cause the heart to become weak and stiff. This leads to a heart that does not contract efficiently. Other conditions can contribute to heart failure. These include abnormal heart rhythms, thyroid problems, and low blood counts (anemia ). Certain unhealthy behaviors can increase the risk of heart failure. Those unhealthy behaviors include: Being overweight. Smoking or chewing tobacco. Eating foods high in fat and cholesterol. Abusing illicit drugs or alcohol. Lacking physical activity. SYMPTOMS Heart failure symptoms may vary and can be hard to detect. Symptoms may include : Shortness of breath with activity, such as climbing stairs. Persistent cough. Swelling of the feet, ankles, legs, or abdomen. Unexplained weight gain. Difficulty breathing when lying flat (orthopnea ). Waking from sleep because of the need to sit up and get more air. Rapid heartbeat. Fatigue and loss of energy. Feeling lightheaded, dizzy, or close to fainting. Loss of appetite. Nausea. Increased urination during the night (nocturia ). DIAGNOSIS A diagnosis of heart failure is based on your history, symptoms, physical examination, and diagnostic tests. Diagnostic tests for heart failure may include: Echocardiography. Electrocardiography. Chest X-ray. Blood tests. Exercise stress test. Cardiac angiography. Radionuclide scans. TREATMENT Treatment is aimed at managing the symptoms of heart failure. Medicines, behavioral changes, or surgical intervention may be necessary to treat heart failure. Medicines to help treat heart failure may include: Angiotensin-converting enzyme (JERRY) inhibitors. This type of medicine blocks the effects of a blood protein called angiotensin-converting enzyme. JERRY inhibitors relax (dilate ) the blood vessels and help lower blood pressure. Angiotensin receptor blockers. This type of medicine blocks the actions of a blood protein called angiotensin. Angiotensin receptor blockers dilate the blood vessels and help lower blood pressure. Water pills (diuretics ). Diuretics cause the kidneys to remove salt and water from the blood. The extra fluid is removed through urination. This loss of extra fluid lowers the volume of blood the heart pumps. Beta blockers. These prevent the heart from beating too fast and improve heart muscle strength. Digitalis. This increases the force of the heartbeat. Healthy behavior changes include: Obtaining and maintaining a healthy weight. Stopping smoking or chewing tobacco. Eating heart healthy foods. Limiting or avoiding alcohol. Stopping illicit drug use. Physical activity as directed by your caregiver. Surgical treatment for heart failure may include: A procedure to open blocked arteries, repair damaged heart valves, or remove damaged heart muscle tissue. A pacemaker to improve heart muscle function and control certain abnormal heart rhythms. An internal cardioverter defibrillator to treat certain serious abnormal heart rhythms. A left ventricular assist device to assist the pumping ability of the heart. HOME CARE INSTRUCTIONS Take your medicine as directed by your caregiver. Medicines are important in reducing the workload of your heart, slowing the progression of heart failure , and improving your symptoms. Do not stop taking your medicine unless directed by your caregiver. Do not skip any dose of medicine. Refill your prescriptions before you run out of medicine. Your medicines are needed every day. Take [id number] medicine only as directed by your caregiver or pharmacist. Engage in moderate physical activity if directed by your caregiver. Moderate physical activity can benefit some people. The elderly and people with severe heart failure should consult with a caregiver for physical activity recommendations. Eat heart healthy foods. Food choices should be free of trans fat and low in saturated fat, cholesterol, and salt (sodium ). Healthy choices include fresh or frozen fruits and vegetables, fish, lean meats, legumes, fat-free or low-fat dairy products, and whole grain or high fiber foods. Talk to a dietitian to learn more about heart healthy foods. Limit sodium if directed by your caregiver. Sodium restriction may reduce symptoms of heart failure in some people. Talk to a dietitian to learn more about heart healthy seasonings. Use healthy cooking methods. Healthy cooking methods include roasting, grilling, broiling, baking, poaching, steaming, or stir-frying. Talk to a dietitian to learn more about healthy cooking methods. Limit fluids if directed by your caregiver. Fluid restriction may reduce symptoms of heart failure in some people. Weigh yourself every day. Daily weights are important in the early recognition of excess fluid. You should weigh yourself every morning after you urinate and before you eat breakfast. Wear the same amount of clothing each time you weigh yourself. Record your daily weight. Provide your caregiver with your weight record. Monitor and record your blood pressure if directed by your caregiver. Check your pulse if directed by your caregiver. Lose weight if directed by your caregiver. Weight loss may reduce symptoms of heart failure in some people. Stop smoking or chewing tobacco. Nicotine makes your heart work harder by causing your blood vessels to constrict. Do not use nicotine gum or patches before talking to your caregiver. Schedule and attend follow-up visits as directed by your caregiver. It is important to keep all your appointments. Limit alcohol intake to no more than 1 drink per day for non women and 2 drinks per day for men. Drinking more than that is harmful to your heart. Tell your caregiver if you drink alcohol several times a week. Talk with your caregiver about whether alcohol is safe for you. If your heart has already been damaged by alcohol or you have severe heart failure, drinking alcohol should be stopped completely. Stop illicit drug use. Stay up-to-date with immunizations. It is especially important to prevent respiratory infections through current pneumococcal and influenza immunizations. Manage other health conditions such as hypertension, diabetes, thyroid disease, or abnormal heart rhythms as directed by your caregiver. Learn to manage stress. Plan rest periods when fatigued. Learn strategies to manage high temperatures. If the weather is extremely hot: Avoid vigorous physical activity. Use air conditioning or fans or seek a cooler location. Avoid caffeine and alcohol. Wear loose-fitting, lightweight, and light-colored clothing. Learn strategies to manage cold temperatures. If the weather is extremely cold: Avoid vigorous physical activity. Layer clothes. Wear mittens or gloves, a hat, and a scarf when going outside. Avoid alcohol. Obtain ongoing education and support as needed. Participate or seek rehabilitation as needed to maintain or improve independence and quality of life. SEEK MEDICAL CARE IF: Your weight increases by 03 lb/1.4 kg in 1 day or 05 lb/2.3 kg in a week. You have increasing shortness of breath that is unusual for you. You are unable to participate in your usual physical activities. You tire easily. You cough more than normal, especially with physical activity. You have any or more swelling in areas such as your hands, feet, ankles, or abdomen. You are unable to sleep because it is hard to breathe. You feel like your heart is beating fast (palpitations ). You become dizzy or lightheaded upon standing up. SEEK IMMEDIATE MEDICAL CARE IF: You have difficulty breathing. There is a change in mental status such as decreased alertness or difficulty with concentration. You have a pain or discomfort in your chest. You have an episode of fainting (syncope ). MAKE SURE YOU: Understand these instructions. Will watch your condition. Will get help right away if you are not doing well or get worse. Document Released: 04/25/2006 Document Revised: 08/20/2013 Document Reviewed: [facility] Patient Information 2014 [facility]. No follow up information was provided. Extracted from: Title: Office Visit Note Author: Britt Sparks MD Date: 08/26/14 Assessment/Plan Atrial fibrillation Benign essential hypertension Recheck 6 months, sooner if needed. Prevnar today. Cardiac pacemaker in situ Congestive heart failure Coronary artery disease Depression Hypertension Kidney disease
--- OUTSIDE RECORDS SUMMARY | 2016-08-26 12:57 | XMS REPORT | Continuity of Care Document ---
Author Author [facility] Organization [facility] Address Unknown Phone Unavailable Support Name Relationship Address Phone SY CONRAD MD Caregiver [address] [place], [place] [id number] MATEO CABRAL Caregiver [address] [place] [address] [address] [place] [address] JOSS URIAS DO Caregiver [address] [place] [place] [address] SHIRLEY SPARKS MD Caregiver [address] [place] [phone] MARIA ANTONIA LEDESMA MD Caregiver [address] [facility] [place] [address] PEARL ZEE Next Of Kin [address] [facility] [address] [place] [address] Insurance Providers Payer Name Policy Number Subscriber Name Relationship Medicare [id number] Paula Zee 19 Self Advance Directives Directive Response Recorded Date/Time Ordered Resuscitation Status Full Code 07/20/14 5:22pm Resuscitation Documents on File No 07/20/14 5:15pm Chief Complaint and Reason for Visit Chief Complaint SYMPTOMATIC ANEMIA Reason for Visit Symptomatic anemia HTN (hypertension) CAD (coronary artery disease) CHF (congestive heart failure) Coagulopathy Symptomatic anemia Problems Medical Problems Problem Onset Date Status Symptomatic anemia Unknown Active HTN (hypertension) Unknown Active CAD (coronary artery disease) Unknown Active CHF (congestive heart failure) Unknown Active Coagulopathy Unknown Active Symptomatic anemia Unknown Active Medications Medication Dose Route Sig Days/Qty Instructions [...] 20 Meq PO THREE TIMES A DAY 03/08/11 Active Citalopram Hydrobromide 20 Mg PO BEDTIME 03/08/11 06/08/11 Discontinued Sennosides 8.6 Mg PO DAILY 03/08/11 06/08/11 Discontinued Guaifen/Dm Hb/P-Ephedrine 1 Cap PO TWICE A DAY 03/12/11 06/08/11 Discontinued Mirtazapine 15 Mg PO BEDTIME 03/12/11 06/08/11 Discontinued Aspirin 1 Tab PO DAILY 06/21/14 07/23/14 Discontinued Diltiazem HCl 180 Mg PO TWICE A DAY 06/21/14 Active Losartan Potassium 100 Mg PO DAILY 06/21/14 Active Dabigatran Etexilate Mesylate 1 Cap PO TWICE A DAY TAKE WITH FULL GLASS OF WATER. 06/21/14 07/23/14 Discontinued Carvedilol 1 Tab PO TWICE A DAY 06/24/14 Active Cyanocobalamin (Vitamin B-12) 1 Tab PO DAILY For Low B12 30 Days Active Ferrous Sulfate 1 Tab PO GIVE WITH BREAKFAST For anemia 30 Days BEST WITH FOOD. 07/23/14 Active Ascorbate Calcium 1 Tab PO GIVE WITH BREAKFAST For anemia 30 Days 07/23 Active Social History Social History Problem Response Recorded Date/Time Hx Substance Use No 07/20/2014 3:50pm Hx Alcohol Use No 07/20/2014 3:50pm Has the pt used tobacco in the last 12 months No 07/20/2014 5:16pm Tobacco Usage none 07/20/2014 7:22pm Query Response Start Date Stop Date Smoking Status Former smoker Hospital Discharge Instructions Instructions: Care Instructions: Reason for Hospitalization: Symptomatic anemia I was in the hospital because (patient own words): "I WAS HAVING DIFFICULTY BREATHING" Discharge Diet: Low sodium Discharge Activity: As tolerated Follow Up Appointments: Follow up with Dr Sparks on 07/30/14 at 2:00 pm - check CBC Will need to follow CBC due to anemia, BMP due to med use Will need repeat Iron, Ferritin, and Vitamin B12 in 1 month Possible restart ASA and Pradaxa in 1-2 months Patient Instructions: Take Iron and Vitamin C together daily with Breakfast Hold ASA and Pradaxa Condition at time of discharge: Good worsening SOB, fever > 101, worsening mental status General Information: n/a Condition at time of discharge: Good During office hours, call [phone]. After hours, please call [facility] at [phone] and have the lithographing machine operator page Dr. Arrieta or the covering surgeon. *In the event of an emergency, seek medical care at the nearest emergency room.* Condition at time of discharge: Good Plan of Care Discharge Date 07/23/14 2:35pm Disposition 01 DISCHARGED HOME, SELF-CARE Instructions/Education Provided [facility] Congestive Heart Failure Blood Transfusion Prescriptions See Medications Section Functional Status Query Response Date Recorded Physical Hygiene Self July 23, 2014 2:24pm Disabilities None July 23, 2014 2:24pm Devices Used Glasses July 23, 2014 2:24pm Dressing Self July 23, 2014 2:24pm Ambulation Self July 23, 2014 2:24pm Diet Self July 23, 2014 2:24pm Mental Status Alert Oriented July 23, 2014 2:24pm Disabilities None July 23, 2014 2:24pm Devices Used Glasses July 23, 2014 2:24pm Physical Hygiene Self July 23, 2014 2:24pm Dressing Self July 23, 2014 2:24pm Ambulation Self July 23, 2014 2:24pm Diet Self July 23, 2014 2:24pm Allergies, Adverse Reactions, Alerts Allergen Type Severity Reaction Status Last Updated Sulfa (Sulfonamide Antibiotics) Adverse Reaction Mild GI SYMPTOMS Active 07/20/14 Digoxin Allergy Unknown NAUSEA Active 07/20/14 Trimethoprim Adverse Reaction Mild GI SYMPTOMS Active 07/20/14 Immunizations Name Given Type Hx Influenza Vaccination No Historical Hx Pneumococcal Vaccination Y 2003 Historical Hx Influenza Vaccination No Historical Hx Tetanus Diptheria Y 2005 Historical Vital Signs Acute Vital Signs Vital Response Date/Time Temperature (Fahrenheit) 96.8 deg F (96.8 - 99.1) Temperature (Calculated Celsius) 36.75751 degrees C (36.0 - 37.3) Pulse Rate (adult) 96 bpm (60 - 100) Respiratory Rate 16 breaths/min (10 - 20) O2 Sat by Pulse Oximetry 94 % (90 - 100) Oxygen Delivery Method Nasal Cannula Oxygen Flow Rate 1.00 L/min Blood Pressure 145/93 mm Hg Blood Pressure Source Automatic Cuff Height 5 ft 2 in Weight 178 lb Body Mass Index 32.0 kg/m^2 Results Test Source Date Result Interp. Ref. Range Comments Activated Partial Thromboplast Time July 20, 2014 3:18pm 68.2 SEC H 24- 36 Alanine Aminotransferase (ALT/SGPT) July 20, 2014 3:18pm 29 U/L N 9-52 Albumin July 20, 2014 3:18pm 3.4 G/DL L 3.5-5.0 Albumin/Globulin Ratio July 20, 2014 3:18pm 1.1 RATIO N 1.1-2.2 Alkaline Phosphatase July 20, 2014 3:18pm 70 U/L N 38-126 Anion Gap July 23, 2014 4:39am 11 MEQ/L N 5-15 Anisocytosis July 21, 2014 11:25am 1+ - COMMENT OK TO USE BLOOD IN LAB Aspartate Amino Transf (AST/SGOT) July 20, 2014 3:18pm 16 U/L N 14-36 B-Type Natriuretic Peptide February 10, 2011 5:55am 501 PG/ML H 15-100 BUN/Creatinine Ratio July 23, 2014 4:39am 27 RATIO H 6-26 Band Neutrophils # July 21, 2014 5:58am 0.1 T/MM3 - Band Neutrophils % July 21, 2014 5:58am 2.0 % N 0-6 Basophils # (Auto) July 23, 2014 4:39am 0.0 T/MM3 N 0-0.2 Basophils # (Manual) February 08, 2011 4:15am 0.1 T/MM3 N 0-0.2 Basophils % (Manual) February 08, 2011 4:15am 1.0 % N 0-2 Basophils (%) (Auto) July 23, 2014 4:39am 0.4 % N 0-2 Blood Urea Nitrogen July 23, 2014 4:39am 32.0 MG/DL H 7-17 Calcium Level July 23, 2014 4:39am 8.5 MG/DL N 8.4-10.2 Calculated Osmolality July 23, 2014 4:39am 284 MOSM/KG H 261-280 Carbon Dioxide Level July 23, 2014 4:39am 30 MEQ/L N 22-30 Chemistry Specimen Hemolysis July 23, 2014 4:39am < 15 0-25 0-25: No Hemolysis.26-70: Slight Hemolysis - can falsely elevate K and Urine Protein. 71-285: Moderate Hemolysis - can falsely elevate K, Troponin I, CA 19-9, PTH, CSF GLucose, and Urine Protein, and can falsely decrease Phenytoin. 286-999: Gross Hemolysis - can falsely elevate K, Troponin I, CA 19-9, PTH, CSF Glucose, and Urine Protine, and can falsely decrease Phenytoin. Recommend specimen recollection. Chloride Level July 23, 2014 4:39am 103 MEQ/L N 98-107 Cholesterol Level February 06, 2011 3:30pm 161 MG/DL N 132-199 COMMENT RUN WITH BLOOD IN LABCOMMENT USE BLOOD IN LAB Cholesterol/HDL Ratio February 06, 2011 3:30pm 2.9 RATIO N 0-4.0 COMMENT RUN WITH BLOOD IN LABCOMMENT USE BLOOD IN LAB Conjugated Bilirubin June 08, 2011 5:12pm 0.00 MG/DL N 0.00-0.30 Creatinine July 23, 2014 4:39am 1.2 MG/DL N 0.7-1.2 D-Dimer May 15, 2014 4:30pm < 150 NG/ML 0-230 <230 NG/ML D-DU= PRESUMPTIVE NEGATIVE FOR PE OR DVT>230 NG/ML D-DU=ADDITIONAL EVAL FOR PE OR DVT RECOMMENDED Digoxin Level December 20, 2008 5:45am 1.6 NG/ML N 0.8-2.0 Eosinophils # (Auto) July 23, 2014 4:39am 0.1 T/MM3 N 0-0.5 Eosinophils # (Manual) July 21, 2014 5:58am 0.0 T/MM3 N 0-0.5 Eosinophils % (Manual) July 21, 2014 5:58am 0.0 % N 0-4 Eosinophils (%) (Auto) July 23, 2014 4:39am 1.9 % N 0-4 Ferritin July 20, 2014 3:41pm 3.58 NG/ML L 11-264 COMMENT will Globulin July 20, 2014 3:18pm 3.1 G/DL N 2.4-3.6 Glomerular Filtration Rate Calc July 23, 2014 4:39am 43 - Glucose Level July 23, 2014 4:39am 95 MG/DL N 65-110 HDL Cholesterol Direct February 06, 2011 3:30pm 55 MG/DL N 40-60 COMMENT RUN WITH BLOOD IN LABCOMMENT USE BLOOD IN LAB Hematocrit July 23, 2014 4:39am 31.4 % L 36-46 Hemoglobin July 23, 2014 4:39am 9.3 GM/DL L 12-16 Hepatitis A IgM Antibody February 06, [...] BLOOD IN LABCOMMENT USE BLOOD IN LAB Hypochromasia July 21, 2014 11:25am 1+ - COMMENT OK TO USE BLOOD IN LAB Icterus Index July 23, 2014 4:39am 3 N 0-7 Immature Granulocyte # (Auto) July 23, 2014 4:39am 0.01 T/MM3 N 0.00- 0.03 Immature Granulocyte % (Auto) July 23, 2014 4:39am 0.1 % N 0.0-0.5 Iron Level July 20, 2014 3:41pm < 10 UG/DL L 37-170 COMMENT will LDL Cholesterol, Calculated February 06, 2011 3:30pm 95.2 N 66-159 COMMENT RUN WITH BLOOD IN LABCOMMENT USE BLOOD IN LAB Lab Scanned Report May 27, 2014 8:36pm LAB TEST FORM REQUEST [id number] - Lymphocytes # (Auto) July 23, 2014 4:39am 0.9 T/MM3 L 1-4.8 Lymphocytes # (Manual) July 21, 2014 11:25am 0.6 T/MM3 L 1-4.8 COMMENT OK TO USE BLOOD IN LAB Lymphocytes % (Manual) July 21, 2014 11:25am 7.0 % L 23-45 COMMENT OK TO USE BLOOD IN LAB Lymphocytes (%) (Auto) July 23, 2014 4:39am 12.4 % L 23-45 Magnesium Level July 21, 2014 11:25am 2.1 MG/DL N 1.6-2.3 COMMENT OK TO USE BLOOD IN LAB Mean Corpuscular Hemoglobin July 23, 2014 4:39am 23.8 UUG L 26-34 Mean Corpuscular Hemoglobin Concent July 23, 2014 4:39am 29.6 GM/DL L 31-37 Mean Corpuscular Volume July 23, 2014 4:39am 80.3 UM3 N 80-100 Mean Platelet Volume July 23, 2014 4:39am 9.7 UM3 N 9.4-12.4 Monocytes # (Auto) July 23, 2014 4:39am 0.7 T/MM3 N 0-0.8 Monocytes # (Manual) July 21, 2014 11:25am 0.3 T/MM3 N 0-0.8 COMMENT OK TO USE BLOOD IN LAB Monocytes % (Manual) July 21, 2014 11:25am 4.0 % N 0-9.0 COMMENT OK TO USE BLOOD IN LAB Monocytes (%) (Auto) July 23, 2014 4:39am 9.4 % H 0-9.0 ST-Ayq-G-Type Natriuretic Peptide July 20, 2014 3:18pm 4210 PG/ML H 0- 175 Rule in cut points: <50 years old=450; 50-75 years old=900; >75 years old=1800; When utilizing ProBNP rule-in cut points, adjustment for impaired renal function is typically not required. Neutrophils # (Auto) July 23, 2014 4:39am 5.5 T/MM3 N 1.8-7.7 Neutrophils # (Manual) July 21, 2014 11:25am 7.1 T/MM3 N 1.8-7.7 COMMENT OK TO USE BLOOD IN LAB Neutrophils % (Manual) July 21, 2014 11:25am 89.0 % H 33-66 COMMENT OK TO USE BLOOD IN LAB Neutrophils (%) (Auto) July 23, 2014 4:39am 75.8 % H 33-66 Ova and Parasites (LAB) February 07, 2011 12:00pm Ref lab rpt scanned - --- 02/17/11 [id number] ---OAP previously reported as: SENT OUT Phosphorus Level December 19, 2008 5:10am 3.5 MG/DL N 2.5-4.5 Platelet Count July 23, 2014 4:39am 271 T/MM3 N 130-400 Poikilocytosis July 21, 2014 11:25am 1+ - COMMENT OK TO USE BLOOD IN LAB Potassium Level July 23, 2014 4:39am 3.8 MEQ/L DN 3.6-5 Prealbumin December 18, 2008 11:40pm 31.3 MG/DL N 17.6-36.0 Prothromb Time International Ratio July 20, 2014 3:18pm 1.70 H 0.81- 1.09 THERAPUTIC RANGE=2.00-3.00 FOR ANTI-THROMBOSIS THERAPUTIC RANGE=2.50- 3.50 FOR IMPLANTED VALVE RDW Standard Deviation July 23, 2014 4:39am 46.0 FL N 36.9-50.2 Red Blood Count July 23, 2014 4:39am 3.91 M/MM3 L 4.00-5.20 Red Cell Morphology Comment July 21, 2014 11:25am Abnormal - COMMENT OK TO USE BLOOD IN LAB Sodium Level July 23, 2014 4:39am 144 MEQ/L N 134-144 Thyroid Stimulating Hormone (TSH) December 18, 2008 11:40pm 0.70 MIU/ML N 0.47-4.68 Total Bilirubin July 20, 2014 3:18pm 0.40 MG/DL N 0.20-1.30 Total Protein July 20, 2014 3:18pm 6.5 G/DL N 6.3-8.2 Triglycerides Level February 06, 2011 3:30pm 54 MG/DL N 35-135 COMMENT RUN WITH BLOOD IN LABCOMMENT USE BLOOD IN LAB Troponin I July 21, 2014 11:25am < 0.012 ng/ml 0-0.12 COMMENT OK TO USE BLOOD IN LAB Turbidity July 23, 2014 4:39am < 20 0-20 Unconjugated Bilirubin June 08, 2011 5:12pm 0.00 [...] - Has specimen been collected/obtained? Y Urine Microscopic Not Indicated March 08, 2011 5:41pm Not indicated - Has specimen been collected/obtained? Y Urine [...] Has specimen been collected/obtained? Y Urine Specific Tea June 08, 2011 6:30pm 1.010 L - [...] USE BLOOD IN LAB Vitamin B12 Level July 20, 2014 3:41pm 168 PG/ML L 239-931 COMMENT will White Blood Count July 23, 2014 4:39am 7.2 T/MM3 N 4.5-11.0 Blood Culture Blood February 06, 2011 3:35pm Streptococcus Pneumoniae Stool Culture Stool February 07, 2011 12:00pm Urine Culture Urine, Clean Catch Voided February 06, 2011 4:28pm Escherichia Coli Name: PAULA ZEE Unit #: [id number] : 1930 Sex: F Loc / Svc: SRG DOS: 07/20/14 Signed Report #: [id number] DIAGNOSTIC IMAGING REPORT TYPE OF EXAM: CHEST 1 VIEW Dictated By: GUILLERMO ROBINS MD Indication: ITS.REASON: CHF AND DYSPNEA CHEST 1 VIEW: Comparison: July 20, 2014 Findings: Right lower lobe airspace disease is less prominent on today's study. There is however new left pleural fluid. No pneumothorax or obvious right effusion. The heart size and mediastinal contours are stable. Vascularity appears unchanged. Mitral annular calcifications are noted. Impression: Improved right lower lobe atelectasis. Persistent mild edema with slight increase in left pleural fluid. . Procedures Procedure Status Date Provider(s) METABOLIC PANEL TOTAL CA completed 05/15/14 ASSAY OF NATRIURETIC PEPTIDE completed 05/15/14 FIBRIN DEGRADATION QUANT completed 05/15/14 PROTHROMBIN TIME completed 05/15/14 METABOLIC PANEL TOTAL CA completed 05/27/14 ASSAY OF NATRIURETIC PEPTIDE completed 05/27/14 EGD BIOPSY SINGLE/MULTIPLE completed 06/24/14 ROMAIN BURGER MD, FACS, CWS DIAGNOSTIC COLONOSCOPY completed 06/24/14 ROMAIN BURGER MD, FACS, CWS TISSUE EXAM BY PATHOLOGIST completed 06/24/14 PROPOFOL INJ 500 MG/50ML completed 06/24/14 [id number]"INFUSION, NORMAL SALINE SOLUTION , 1000 CC" completed 06/24/14 Encounters Encounter Location Date/Time Discharged Inpatient [facility] 07/22/14 12:48pm Registered [facility] 05/27/14 12:29pm Registered [facility] 05/15/14 4:34pm Recent Diagnosis Symptomatic anemia HTN (hypertension) CAD (coronary artery disease) CHF (congestive heart failure) Coagulopathy Symptomatic anemia
[2016-08-26] MEDS ORDERED: BUSP15TA3 PO (13:24)
[2016-08-26] MEDS ORDERED: ATOR40TA64 PO (13:24)
[2016-08-26] MEDS ORDERED: FLUO20TA29 PO (13:24)
[2016-08-26] MEDS ORDERED: ASPI-557 PO (13:28)
[2016-08-26] MEDS ORDERED: ACET325T51 PO (13:28)
[2016-08-26] MEDS ORDERED: ASCO-324 PO (13:28)
[2016-08-26] MEDS ORDERED: MULT-245 PO (13:28)
[2016-08-26] MEDS ORDERED: DOCU-168 PO (13:30)
--- NOTE | 2016-08-26 13:30 | NUR ---
PROVIDER Ajay KEITH INFANT AND TODDLER TEACHER IN TO SEE PATIENT.
[2016-08-26 13:32] LABS: HCT - HEMATOCRIT 29.4 % (36-46); HGB - HEMOGLOBIN 9.1 GM/DL (12-16); MEAN CORPUSCULAR HGB 28.1 UUG (26-34); MEAN CORPUSCULAR VOLUME 90.7 UM3 (80-100); MEAN PLATELET VOLUME 11.3 UM3 (9.4-12.4); RED BLOOD COUNT 3.24 M/MM3 (4.00-5.20); WBC - WHITE BLOOD COUNT 8.4 T/MM3 (4.5-11.0)
[2016-08-26] MEDS ORDERED: POLY119P21 PO (13:33)
[2016-08-26] MEDS ORDERED: FURO20TA4 PO (13:33)
[2016-08-26] MEDS ORDERED: LOSA25TA34 PO (13:33)
[2016-08-26] MEDS ORDERED: POTA10CA37 PO (13:35)
[2016-08-26] MEDS ORDERED: CYAN100099 PO (13:35)
[2016-08-26] MEDS ORDERED: MICO5POW6 TOP (13:39)
[2016-08-26] MEDS ORDERED: LACT-73 PO (13:39)
[2016-08-26] MEDS ORDERED: MAGN400O4 PO (13:39)
[2016-08-26] MEDS ORDERED: ALPR0.5T8 PO (13:39)
[2016-08-26] MEDS ORDERED: IPRA3AMP AEROSOL (13:40)
--- NOTE | 2016-08-26 13:40 | ERPDOC ---
Departure Disposition Decision Date: Aug 26, 2016 Disposition Decision Time: 15:52 Disposition: 01 DISCHARGED HOME, SELF-CARE Impression Impression Impression: Primary Impression: Urinary tract infection Urinary tract infection type: acute cystitis Hematuria presence: without hematuria Qualified Codes: N30.00 - Acute cystitis without hematuria Severity: Moderate Condition: Stable Seen By: Mid-level only Referrals: RENETTA SCOTT DO (Family) Patient Instructions: Urinary Tract Infection in Women (ED) Problems/Meds/Labs Reviewed?: Yes Medications reviewed and manag: Yes Additional Instructions: Take the Keflex as prescribed. Make sure that she is drinking plenty of fluids as well. If fever continues beyond the next 1-2 days then please return to ER for reevaluation. Follow up care ordered?: Yes Mental Status: Alert Scripts Cephalexin (Cephalexin) 500 Mg Tablet 1 TAB PO TID, #21 TAB 0 Refills Prov: VIKI KEITH DIRECTOR OF TESTING 08/26/16 HPI - Fever General Chief Complaint: Fever Stated Complaint: SOA Time Seen by Provider: 12:52 Source: patient Exam Limitations: no limitations HPI - Fever Initial Comments She presents to [place] via [place] from the [place]. She was found to have a fever today up to 102 at the intermediate. She did get Tylenol prior to coming to ER. 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 She denies any pain anywhere or any c/o today. Occurred At: home Onset: Gradual Duration: 12-24 hrs Fever Quality: greater than 102 F Associated Symptoms: DENIES: abdominal pain, chest pain, confusion, dizziness, headache, lightheadedness, muscle spasms, nausea/vomiting, neck pain, ringing in ears, seizures, shortness of breath, slurred speech, trouble walking, vision changes Hx of Similar Symptoms: No Allergies: Coded Allergies: digoxin (Verified Allergy, Unknown, NAUSEA, 08/26/16) "I FEEL NAUSEATED, UNSTEADY, DON'T FEEL CAPABLE OF WALKING. THE LONGER I TAKE IT THE WORSE IT GETS" Sulfa (Sulfonamide Antibiotics) (Verified Adverse Reaction, Mild, GI SYMPTOMS, 08/26/16) PT UNCERTAIN trimethoprim (Verified Adverse Reaction, Mild, GI SYMPTOMS, 08/26/16) PT UNCERTAIN Past History Past Medical History Metabolic: hypertension Cardiac: CAD, CHF, PA Female: UTI Neurological: CVA, cerebral hemorrhage, head injury Hematologic: anemia Surgical History General: EGD, appendix, colonoscopy Cardiac: cardiac stent, carotid endarterectomy, pacemaker Reproductive/: other Family History Family PMH: FOUND: hypertension Vaccines Hx Influenza Vaccination: Yes (2013) Hx Pneumococcal Vaccination: Yes (2003) Hx Tetanus Diptheria: Yes (2005) Social History Smoking Status: Never smoker Substance Use Type: does not use Alcohol Intake: none Sexuality: male partner Review of Systems Constitutional Constitutional: chills, fever, DENIES: appetite decrease, dizziness, fatigue, weakness ENMT Ears: DENIES: drainage, pain Sinuses: DENIES: congestion, rhinorrhea Mouth/Throat: DENIES: painful swallowing, scratchy throat, sore throat Cardiovascular Cardiac: DENIES: chest pain, dyspnea on exertion, orthopnea Rhythm/Rate: DENIES: irregular beat, palpitations Pulmonary Respiratory: DENIES: cough, dyspnea, sputum, tachypnea GI Upper Abdomen: DENIES: nausea, pain, vomiting Lower Abdomen: DENIES: constipation, diarrhea, pain Integumentary Skin: DENIES: rash Neurological General: DENIES: headache, numbness, tingling, weakness Physical Exam General General Nourishment: well nourished, well developed, appears stated age, no acute distress, adult General Body Habitus: well groomed Vitals and Pain First Documented Vital Signs Date Time Temp Pulse Resp B/P Pulse Ox O2 Delivery O2 Flow Rate FiO2 08/26/16 12:52 99.5 68 18 122/64 91 Room Air 08/26/16 13:35 2.00 Weight: Kilograms: 71.000 Height (feet): 5 Height (inches): 10.00 Triage Pain Scale: RN VS reviewed by Provider: Yes Normal Exams: Neck: Full range of motion, without adenopathy, JVD, bruits or thyromegaly Chest/Resp: Clear all fournier, with good airflow, and symmetry bilaterally CV: Regular rate and rhythm, without murmur or gallop, Pulses 2+ all extremities, capillary refill, <2 seconds all ext., no pedal edema noted Abdomen: Bowel sounds positive, soft, non-tender, non-distended, no hepatosplenomegaly, masses or bruits noted Lymphatic: No lymphadenopathy, or lymphedema noted Integumentary: No rashes, hives, or bruising noted Neurologic: Patient is alert Psychiatric: Patient exhibits, appropriate attention, emotion and affect ENMT (brief) ENMT Brief: FOUND: TM clear, TM good light reflex, ear canals clear, mucosa moist, normal dentition, normal tonsils, NOT FOUND: lesions, nasal erythema, nasal exudate, nasal swelling, petechiae, pharnyx erythema, tonsillar deviation Differential Diagnoses Considering: Acute Bronchitis, Influenza, Pneumonia, UTI, Viral Syndrome Progress Results/Orders Orders Procedure Category Date Status Time Blood Culture CHON 08/26/16 In Process 13:23 Lactate - Lactic Acid LAB 08/26/16 Complete Procalcitonin LAB 08/26/16 Complete 13:23 Cbc W/Auto LAB 08/26/16 Complete Diff-Reflex Manual Bmp - Basic Metabolic LAB 08/26/16 Complete Panel Iv Lock (Ed Only) EDM 08/26/16 Transmitted 13:23 Chest 1 View RAD 08/26/16 Resulted Troponin I W LAB 08/26/16 Complete Hemolysis Index EKG EKG 08/26/16 Taken Cefepime (Maxipime) PHA 08/26/16 Complete 14:00 Lorazepam (Ativan) PHA 08/26/16 Complete 15:45 UA, LAB 08/26/16 Complete Dip&Micro(Complete) & 15:24 Urine Culture CHON 08/26/16 In Process 15:47 Lab Results Laboratory Tests Test 08/26/16 13:01 08/26/16 13:37 08/26/16 15:24 White Blood Count 8.4T/MM3 Red Blood Count 3.24M/MM3 Hemoglobin 9.1GM/DL Hematocrit 29.4% Mean Corpuscular Volume 90.7UM3 Mean Corpuscular Hemoglobin 28.1UUG Mean Corpuscular Hemoglobin Concent 31.0GM/DL RDW Standard Deviation 59.3FL Platelet Count 128T/MM3 Mean Platelet Volume 11.3UM3 Immature Granulocyte % (Auto) % Neutrophils (%) (Auto) % Lymphocytes (%) (Auto) % Monocytes (%) (Auto) % Eosinophils (%) (Auto) % Basophils (%) (Auto) % Absolute Immature Granulocyte (auto T/MM3 Absolute Neutrophils (auto) T/MM3 Absolute Lymphocytes (auto) T/MM3 Absolute Monocytes (auto) T/MM3 Absolute Eosinophils (auto) T/MM3 Absolute Basophils (auto) T/MM3 Neutrophils % (Manual) 88.0% Band Neutrophils % 3.0% Lymphocytes % (Manual) 3.0% Monocytes % (Manual) 5.0% Basophils % (Manual) 1.0% Absolute Neutrophils (Manual) 7.4T/MM3 Band Neutrophils # 0.3T/MM3 Lymphocytes # (Manual) 0.3T/MM3 Monocytes # (Manual) 0.4T/MM3 Basophils # (Manual) 0.1T/MM3 Anisocytosis 1+ Red Cell Morphology Comment Abnormal Procalcitonin 12.82NG/ML Turbidity < 20 Sodium Level 140MEQ/L Potassium Level 4.6MEQ/L Chloride Level 106MEQ/L Carbon Dioxide Level 27MEQ/L Anion Gap 7MEQ/L Blood Urea Nitrogen 29.0MG/DL Creatinine 0.9MG/DL Glomerular Filtration Rate Calc 60 BUN/Creatinine Ratio 32RATIO Glucose Level 102MG/DL Calculated Osmolality 275MOSM/KG Calcium Level 8.6MG/DL Icterus Index < 2 Troponin I 0.016ng/ml Plasma Lactate 1.1MMOL/L Chemistry Specimen Hemolysis < 15 Urine Collection Type Cleancatch-midstream Urine Color Yellow Urine Turbidity Turbid Urine pH 6.0 Urine Specific [place] 1.020 Urine Protein 2+ Urine Glucose (UA) Negative Urine Ketones Negative Urine Blood 3+ Urine Nitrite Positive Urine Bilirubin Negative Urine Urobilinogen 2.0EU/DL Urine Leukocyte Esterase 3+ Urine RBC 1-3/HPF Urine WBC Tntc/HPF Urine WBC Clumps Many Urine Squamous Epithelial Cells 0-5 Urine Bacteria 2+ Urine Culture Indicated Cult reflexed &setup Medications Current ED Medications Cefepime HCl/ Sodium Chloride (Maxipime/NS) 100 ml @ 200 mls/hr O ONCE IV Last administered on 08/26/16 14:51; Start 08/26/16 at 14:00; Stop 08/26/16 at 14:29; Status DC Lorazepam (Ativan) 0.5 mg O ONCE IV Last administered on 08/26/16 15:48; Start 08/26/16 at 15:45; Stop 08/26/16 at 15:46; Status DC Progress Progress WBC is 8.4 with 88% neutrophils. Hgb is 9.1. Procalcitonin is elevated at 12.82 with normal lactate of 1.1. Troponin today is negative. UA shows LE 3+ with WBC TNTC and many WBC clumps. Bacteria is 2+. Did give a dose of Cefepime IV. Did speak with Dr. Thurston about possible admission and he recommends attempting outpatient treatment. Her vitals are stable, temp has been in normal range. Will have her start on some Keflex at home. Have nursing staff monitor for any increasing lethargy, tachycardia, hypotension, or worsening overall condition. VIKI KEITH APRN Aug 26, 2016 13:40
[2016-08-26 13:51] LABS: BAND NEUTROPHILS # 0.3 T/MM3; BASOPHILS # (MANUAL) 0.1 T/MM3 (0-0.2); LYMPHOCYTES # (MANUAL) 0.3 T/MM3 (1-4.8); MONOCYTES # (MANUAL) 0.4 T/MM3 (0-0.8); NEUTROPHILS #(MANUAL)-ABSOLUTE 7.4 T/MM3 (1.8-7.7); TOTAL CELLS COUNTED 100 %
[2016-08-26 13:52] LABS: ANISOCYTOSIS 1+
--- OUTSIDE RECORDS SUMMARY | 2016-08-26 13:53 | XMS REPORT | Continuity of Care Document ---
Author Author [facility] Organization [facility] Address Unknown Phone Unavailable Allergies Medications Problems Procedures Results Encounters ACCT No. Visit Date/Time Discharge Status Pt. Type Provider Facility Loc./Unit Complaint [id number] 07/06/2013 13:00:00 07/06/2013 23 :59:59 CLS Outpatient
--- NOTE | 2016-08-26 13:54 | NUR ---
XRAY PORTABLE XRAY BEING DONE IN ROOM AT THIS TIME.
--- OUTSIDE RECORDS SUMMARY | 2016-08-26 13:54 | XMS REPORT | Continuity of Care Document ---
Author Author [facility] Organization [facility] Address Unknown Phone Unavailable Support Name Relationship Address Phone SHIRLEY LAW MD Caregiver [address] [place] [address] [place] [phone] ROMAIN BURGER FACS CWS Caregiver [address] [place] [address] [address] [place] [phone] PEARL ZEE DPOA Next Of Kin [address] [facility] [address] [place], [place] [id number] Insurance Providers Payer Name Policy Number Subscriber Name Relationship Medicare [id number] Paula Zee 19 Self Advance Directives Directive [...] F (96.8 - 99.1) Temperature (Calculated Celsius) 36.20932 degrees C (36.0 - 37.3) Temperature Source [...] Has specimen been collected/obtained? Y Urine Specific [place] June 08, 2011 6:30pm 1.010 L - [...] 27, 2014 8:36pm LAB TEST FORM REQUEST [id number] - HDL Cholesterol Direct February 06, 2011 [...] May 27, 2014 12:03pm < 2 0-7 WI-Jts-W-Type Natriuretic Peptide May 27, 2014 12:03pm 5040 [...] FACS, CWS Encounters Encounter Location Date/Time Registered [facility] 05/27/14 12:29pm Registered [facility] 05/15/14 4:34pm
--- OUTSIDE RECORDS SUMMARY | 2016-08-26 13:55 | XMS REPORT | Continuity of Care Document ---
Author Author [facility] Organization [facility] Address Unknown Phone Unavailable Support Name Relationship Address Phone SY CONRAD MD Caregiver [address] [place], [place] [id number] MATEO CABRAL Caregiver [address] [place] [address] [address] [place] [address] JOSS URIAS DO Caregiver [address] [place] [place] [address] SHIRLEY SPARKS MD Caregiver [address] [place] [phone] MARIA ANTONIA LEDESMA MD Caregiver [address] [facility] [place] [address] PEARL ZEE Next Of Kin [address] [facility] [address] [place] [address] Insurance Providers Payer Name Policy Number Subscriber Name Relationship Medicare [id number] Paula Zee 19 Self Advance Directives Directive [...] of discharge: Good During office hours, call [phone]. After hours, please call [facility] at [phone] and have the crown assembly machine operator page Dr. Arrieta or the covering surgeon. *In the event of an emergency, seek medical care at the nearest emergency room.* Condition at time of discharge: Good Plan of Care Discharge Date 07/23/14 2:35pm Disposition 01 DISCHARGED HOME, SELF-CARE Instructions/Education [place] [facility] [place]est[place] Blood Transfusion Prescriptions See [...] F (96.8 - 99.1) Temperature (Calculated Celsius) 36.39905 degrees C (36.0 - 37.3) Pulse Rate [...] 27, 2014 8:36pm LAB TEST FORM REQUEST [id number] - Lymphocytes # (Auto) July 23, 2014 [...] 23, 2014 4:39am 9.4 % H 0-9.0 YA-Gsg-C-Type Natriuretic Peptide July 20, 2014 3:18pm 4210 [...] Has specimen been collected/obtained? Y Urine Specific [place] June 08, 2011 6:30pm 1.010 L - [...] Escherichia Coli Name: PAULA ZEE Unit #: [id number] : 1930 Sex: F Loc / Svc: SRG DOS: 07/20/14 Signed Report #: [id number] DIAGNOSTIC IMAGING REPORT TYPE OF EXAM: CHEST [...] 06/24/14 PROPOFOL INJ 500 MG/50ML completed 06/24/14 [id number]"INFUSION, NORMAL SALINE SOLUTION , 1000 CC" completed 06/24/14 Encounters Encounter Location Date/Time Discharged Inpatient [facility] 07/22/14 12:48pm Registered [facility] 05/27/14 12:29pm Registered [facility] 05/15/14 4:34pm Recent Diagnosis Symptomatic anemia HTN (hypertension) CAD (coronary artery disease) CHF (congestive heart failure) Coagulopathy Symptomatic anemia
[2016-08-26 13:56] LABS: LACTATE - LACTIC ACID 1.1 MMOL/L (0.6-2.2)
[2016-08-26] MEDS ORDERED: CEFEPIME 1 G in NORMAL SALINE 100 ML IV ONE (14:00)
--- NOTE | 2016-08-26 14:06 | DI ---
Indication: ITS.REASON: fever PROCEDURE: CHEST 1 VIEW: Encounter: Initial Comparison: October 15, 2015 Findings: Senescent changes in the lungs without focal consolidative pneumonia. No pleural effusion or pneumothorax. Cardiac silhouette remains severely enlarged. Mediastinal contours are widened but most of this is due to rotation on this exam. Tortuous ectatic thoracic aorta. Left cardiac pacemaker. Mitral annular calcifications. Impression: No focal pneumonia. .
[2016-08-26 14:07] LABS: ANION GAP 7 MEQ/L (5-15); BUN/CREATININE RATIO 32 RATIO (6-26); CALCIUM 8.6 MG/DL (8.4-10.2); CHLORIDE 106 MEQ/L (98-107); CO2 - CARBON DIOXIDE 27 MEQ/L (22-30); CREATININE 0.9 MG/DL (0.7-1.2); GLOMERULAR FILTRATION RATE 60; GLUCOSE 102 MG/DL (65-110); POTASSIUM 4.6 MEQ/L (3.6-5); SODIUM 140 MEQ/L (134-144)
--- NOTE | 2016-08-26 15:11 | NUR ---
FAMILY THIS RN PHONED [phone], NITIN ENRIQUEZ. UPDATED BILL ON STATUS OF PATIENT.
[2016-08-26 15:45] LABS: BLOOD, URINE 3+ (NEGATIVE); LEUKOCYTE ESTERASE ,URINE 3+ (NEGATIVE); NITRITE,URINE POSITIVE (NEGATIVE)
[2016-08-26] MEDS ORDERED: LORAZEPAM 2 MG/ML INJECTION IV ONE (15:45)
[2016-08-26 15:46] LABS: COLOR,URINE YELLOW (YELLOW)
[2016-08-26 15:47] LABS: BACTERIA,URINE 2+ (NEGATIVE); SQUAMOUS EPITHELIAL CELL,UR 0-5; WBC CLUMPS,URINE MANY; WBC,URINE TNTC /HPF (0-5)
[2016-08-26] MEDS ORDERED: CEPH500T PO (15:54)
--- NOTE | 2016-08-26 16:00 | NUR ---
REPORT GIVEN TO HARIKA NURSE AT [facility].
--- NOTE | 2016-08-26 16:32 | NUR ---
STATUS PATIENT IS RESTING IN BED ON RA. O2 IS 92%.
[2016-08-26 16:55] VITALS: BP 116/55; PULSE 66; RESP 18; TEMP 98.2; O2SAT 91
== END 2016-08-26 16:55 | disposition home or self-care (01) ==
LOC: ED 12:50
DX: N30.00 Acute cystitis without hematuria (principal)
CPT/HCPCS: 36415; 71010; 80048; 81001; 83605; 84145; 84484; 85025; 87040; 87077; 87086; 87150; 87186; 87205; 93005; 96365; 96375; 99284; J0692; J2060; J7050

== ENCOUNTER 2017-06-03 10:21 | Observation (INO) ==
[2017-06-03] MEDS ORDERED: SALINE FLUSH 10ml SYRINGE IVF PRN (10:37)
--- NOTE | 2017-06-03 10:39 | Emergency Department Report ---
General Adult HPI - General Chief complaint: Shortness of Breath/Dyspnea Stated complaint: low 02, vom Time Seen by Provider: 06/03/17 10:37 Source: patient, EMS Mode of arrival: EMS Limitations: other (dementia) - History of Present Illness HPI narrative: 86-year-old female who is a do not resuscitate presents to the emergency department with a chief complaint of hypoxia and vomiting. Patient was diagnosed with influenza one day ago and started on Tamiflu. She denies any pain or discomfort. She was approximately 80% on room air and with 2 L supplemental oxygen recovers to 96-97%. She was at her care facility when the symptoms began. Symptoms have been persistent in nature since onset. She denies any other complaints or associated symptoms. She is at baseline mental status per fdc staff. - Related Data Home Medications Medication Instructions Recorded Confirmed Carvedilol [Coreg] 25 mg PO BID #0 06/24/14 06/03/17 dilTIAZem HCl [Cartia Xt] 180 mg PO BID #0 10/28/14 06/03/17 Acetaminophen 650 mg PO Q6H #0 08/26/16 06/03/17 Atorvastatin Calcium 40 mg PO HS #0 08/26/16 06/03/17 Fluoxetine HCl 20 mg PO DAILY #0 08/26/16 06/03/17 Losartan Potassium 25 mg PO DAILY #0 08/26/16 06/03/17 Albuterol/Ipratropium [Duoneb] 1 unit AEROSOL Q4H PRN 12/10/16 06/03/17 Ascorbic Acid [Vitamin C] 500 mg PO DAILY 12/10/16 06/03/17 Bumetanide Tab [Bumex] 1 mg PO BID 12/10/16 06/03/17 Buspirone HCl 30 mg PO BID 12/10/16 06/03/17 Klor-Con M20 (potassium chloride 20 meq PO TID tab 03/23/17 06/03/17 ER) 20 mEq tablet,(part/cryst) Protonix (Pantoprazole)40 mg 40 mg PO QAM 03/23/17 06/03/17 tablet,delayed release Carvedilol [Carvedilol] 12.5 mg PO BID 06/03/17 06/03/17 Cyanocobalamin (Vitamin B-12) 1,000 mcg PO DAILY 06/03/17 06/03/17 [Vitamin B-12] Docusate Sodium 100 mg PO BID 06/03/17 06/03/17 Donepezil [Aricept] 10 mg PO HS 06/03/17 06/03/17 Metolazone [Zaroxolyn] 2.5 mg PO 2XW 06/03/17 06/03/17 Multivitamin with Minerals 1 each PO HS 06/03/17 06/03/17 [Gpk-T-Jehj-Minerals] Oseltamivir Phosphate 75 mg PO BID 06/03/17 06/03/17 Zinc Oxide/Petrolatum,White 1 applicatio TOP DAILY 06/03/17 06/03/17 [Jeff Moist Barrier Cream] guaiFENesin [Mucinex] 600 mg PO BID 06/03/17 06/03/17 Allergies Allergy/AdvReac Type Severity Reaction Status Date / Time digoxin Allergy Unknown NAUSEA Verified 06/03/17 10:30 Sulfa (Sulfonamide AdvReac Mild GI SYMPTOMS Verified 06/03/17 10:30 Antibiotics) trimethoprim AdvReac Mild GI SYMPTOMS Verified 06/03/17 10:30 Review of Systems Limitations: ROS unobtainable due to patient's medical condition PFSH Patient Stated Medical History Dementia Yes Transient Ischemic Attacks ( Yes TIA) Cardiac Arrhythmia Yes: afib Congestive Heart Failure Yes Valvular Heart Disease Yes Other Cardiology Yes: ASCAD, ASPVD Other Respiratory Yes: oxygen use "some of the time" Other GI Yes: DIVERTICULOSIS Hx Renal Disease Yes Other Hematologic Yes: BLOOD THINNERS Osteoarthritis Yes Clinic Medical History (Last Reviewed 03/23/17 @ 14:48 by SHERRY Ferguson) Depression (Chronic Medical) CKD (chronic kidney disease) (Chronic Medical) Systolic heart failure, chronic (Chronic Medical) Constipation (Chronic Medical) History of CVA with residual deficit (Chronic Medical) GERD without esophagitis (Chronic Medical) Localized edema (Chronic Medical) Heart failure (Chronic Medical) Atherosclerotic heart disease of [place] coronary artery without angina pectoris (Chronic Medical) Essential (primary) hypertension (Chronic Medical) Pure hypercholesterolemia (Chronic Medical) Angina pectoris (Chronic Medical) Atrial fibrillation (Chronic Medical) CHF (congestive heart failure) (Chronic Medical) Coronary arteriosclerosis (Chronic Medical) Depression (Chronic Medical) HTN (hypertension) (Chronic Medical) Headache (Chronic Medical) Hearing loss (Chronic Medical) Heart attack (Chronic Medical) Hypercholesterolemia (Chronic Medical) Kidney disease (Chronic Medical) Mild aortic insufficiency (Chronic Medical) Pacemaker (Chronic Medical) Rheumatoid arthritis (Chronic Medical) TIA (transient ischemic attack) (Chronic Medical) 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 colonoscopy 2014. esophagogastroduodenoscopy 2014. endarterectomy of common carotid artery 2010. Insertion of renal artery stent 2008. placement of stent in cardiac conduit 2008. cardioverion 2008. Pacemaker Family History: Family History (Last Reviewed 03/23/17 @ 14:48 by Hilda Brennan [facility]) Mother HTN (hypertension) Diabetes CHF (congestive heart failure) Asthma Father HTN (hypertension) Myocardial infarct, old Sister Cancer Anemia Brother Stroke Heart attack - Social History Smoking status: Former smoker Substance use type: does not use Alcohol intake frequency: does not drink Physical Exam - Limitations Limitations: other (dementia) - General General appearance: alert, in no apparent distress - Normal Exams: Head:: Normocephalic without trauma Eyes:: Pupils are PERRLA w/ EOMI, No scleral icterus, irritation, or foreign bodies noted ENMT:: No facial trauma, nasal exudates, pharyngeal erythema, or exudates are noted Dental: No fractured, loose, or missing teeth noted Neck:: Full range of motion, without adenopathy, JVD, bruits or thyromegaly Chest/Respirations:: Clear all fournier, with good airflow, and symmetry bilaterally Cardiovascular:: Regular rate and rhythm, without murmur or gallop, Pulses 2+ all extremities, capillary refill, <2 seconds all extremities Abdomen:: Bowel sounds positive, soft, non-tender, non-distended, no hepatosplenomegaly, masses or bruits noted Lymphatic:: No lymphadenopathy, or lymphedema noted Musculoskeletal:: No tenderness, or deformity noted, good range of motion, all extremities Integumentary:: No rashes, hives, or bruising noted, hair and nails, without abnormality Neurological:: Patient is alert (Alert and oriented x 12 at baseline mental status.) Course Vital Signs Temperature 100.2 F 06/03/17 10:23 Pulse Rate 116 H 06/03/17 10:23 Respiratory Rate 20 06/03/17 10:23 Blood Pressure 144/72 H 06/03/17 10:23 Pulse Oximetry 98 06/03/17 10:23 Temperature 96.5 F L 06/04/17 00:00 Pulse Rate 69 06/04/17 00:00 Respiratory Rate 16 06/04/17 00:00 Blood Pressure 142/64 H 06/04/17 00:00 Pulse Oximetry 100 06/04/17 00:00 Medical Decision Making - MDM Narrative Medical decision making narrative: Labs / Imaging were discussed in detail with the patient and family and questions are answered. Patient is given 500 mL normal saline intravenously times one. She is given acetaminophen with improvement of symptoms. Patient is requiring supplemental oxygen which she does not use at home in order to maintain her oxygen saturations. She is discussed with Dr. Crouch of the hospitalist service and admitted to his service in improved condition. Patient and family are in agreement with the current plan of management. Patient is admitted to the hospital in improved condition. No further orders from attempting physician who is in agreement with the current plan of management. - Differential Diagnosis Flu, dehydration, Viral syndrome, metabolic process - Lab Data Result diagrams: 06/04/17 04:24 06/04/17 04:24 Lab Results 06/03/17 06/03/17 06/03/17 Range/Units 10:29 10:29 12:23 WBC 5.7 (4.5-11.0) T/MM3 RBC 3.78 L (4.00-5.20) M/MM3 Hgb 11.4 L (12-16) GM/DL Hct 35.9 L (36-46) % MCV 95.0 (80-100) UM3 MCH 30.2 (26-34) UUG MCHC 31.8 (31-37) GM/DL RDW Std Deviation 53.3 H (36.9-50.2) FL Plt Count 164 (130-400) T/MM3 MPV 10.1 (9.4-12.4) UM3 Immature Gran % (Auto) 0.2 (0.0-0.5) % Neut % (Auto) 82.7 H (33-66) % Lymph % (Auto) 5.9 L (23-45) % [place] % (Auto) 7.5 (0-9.0) % Eos % (Auto) 3.5 (0-4) % Baso % (Auto) 0.2 (0-2) % Neut # (Auto) 4.7 (1.8-7.7) T/MM3 Lymph # (Auto) 0.3 L (1-4.8) T/MM3 [place] # (Auto) 0.4 (0-0.8) T/MM3 Eos # (Auto) 0.2 (0-0.5) T/MM3 Baso # (Auto) 0.0 (0-0.2) T/MM3 Abs Immat Gran (auto) 0.01 (0.00-0.03) T/MM3 Turbidity < 20 (0-20) Sodium 132 L (134-144) MEQ/L Potassium 4.1 (3.6-5) MEQ/L Chloride 96 L (98-107) MEQ/L Carbon Dioxide 28 (22-30) MEQ/L Anion Gap 8 (5-15) MEQ/L BUN 27.0 H (7-17) MG/DL Creatinine 1.0 (0.7-1.2) MG/DL GFR Calculation 53 BUN/Creatinine Ratio 27 H (6-26) RATIO Glucose 96 (65-110) MG/DL Calculated Osmolality 260 L (261-280) MOSM/KG Calcium 9.2 (8.4-10.2) MG/DL Total Bilirubin 0.30 (0.20-1.30) MG/DL Icterus Index < 2 (0-7) AST 29 (14-36) U/L ALT 29 (9-52) U/L Alkaline Phosphatase 65 (38-126) U/L Troponin I 0.041 (0-0.12) ng/ml Total Protein 7.5 (6.3-8.2) G/DL Albumin 3.8 (3.5-5.0) G/DL Globulin 3.7 H (2.4-3.6) G/DL Albumin/Globulin Ratio 1.0 L (1.1-2.2) RATIO Specimen Hemolysis < 15 (0-25) Ur Collection Type Urine Color (YELLOW) Urine Clarity Urine pH (5.0-8.0) Ur Specific [place] (1.015-1.025) Urine Protein (NEGATIVE) Urine Glucose (UA) (NEGATIVE) Urine Ketones (NEGATIVE) Urine Occult Blood (NEGATIVE) Urine Nitrate (NEGATIVE) Urine Bilirubin (NEGATIVE) Urine Urobilinogen (NORMAL) EU/DL Ur Leukocyte Esterase (NEGATIVE) Urine RBC (0-3) /HPF Urine WBC (0-5) /HPF Urine Bacteria (NEGATIVE) Ur Culture Indicated? Influenza Type A (PCR) Positive A* (Negative) Influenza Type B (PCR) Negative (Negative) 06/03/17 Range/Units 12:49 WBC (4.5-11.0) T/MM3 RBC (4.00-5.20) M/MM3 Hgb (12-16) GM/DL Hct (36-46) % MCV (80-100) UM3 MCH (26-34) UUG MCHC (31-37) GM/DL RDW Std Deviation (36.9-50.2) FL Plt Count (130-400) T/MM3 MPV (9.4-12.4) UM3 Immature Gran % (Auto) (0.0-0.5) % Neut % (Auto) (33-66) % Lymph % (Auto) (23-45) % [place] % (Auto) (0-9.0) % Eos % (Auto) (0-4) % Baso % (Auto) (0-2) % Neut # (Auto) (1.8-7.7) T/MM3 Lymph # (Auto) (1-4.8) T/MM3 [place] # (Auto) (0-0.8) T/MM3 Eos # (Auto) (0-0.5) T/MM3 Baso # (Auto) (0-0.2) T/MM3 Abs Immat Gran (auto) (0.00-0.03) T/MM3 Turbidity (0-20) Sodium (134-144) MEQ/L Potassium (3.6-5) MEQ/L Chloride (98-107) MEQ/L Carbon Dioxide (22-30) MEQ/L Anion Gap (5-15) MEQ/L BUN (7-17) MG/DL Creatinine (0.7-1.2) MG/DL GFR Calculation BUN/Creatinine Ratio (6-26) RATIO Glucose (65-110) MG/DL Calculated Osmolality (261-280) MOSM/KG Calcium (8.4-10.2) MG/DL Total Bilirubin (0.20-1.30) MG/DL Icterus Index (0-7) AST (14-36) U/L ALT (9-52) U/L Alkaline Phosphatase (38-126) U/L Troponin I (0-0.12) ng/ml Total Protein (6.3-8.2) G/DL Albumin (3.5-5.0) G/DL Globulin (2.4-3.6) G/DL Albumin/Globulin Ratio (1.1-2.2) RATIO Specimen Hemolysis (0-25) Ur Collection Type Urine, cath straight Urine Color Yellow (YELLOW) Urine Clarity Clear Urine pH 6.0 (5.0-8.0) Ur Specific [place] 1.020 (1.015-1.025) Urine Protein 2+ A (NEGATIVE) Urine Glucose (UA) Negative (NEGATIVE) Urine Ketones Negative (NEGATIVE) Urine Occult Blood Negative (NEGATIVE) Urine Nitrate Negative (NEGATIVE) Urine Bilirubin Negative (NEGATIVE) Urine Urobilinogen 0.2 (NORMAL) EU/DL Ur Leukocyte Esterase Negative (NEGATIVE) Urine RBC 0-1 (0-3) /HPF Urine WBC 0-1 (0-5) /HPF Urine Bacteria 2+ H (NEGATIVE) Ur Culture Indicated? Cult not indicated Influenza Type A (PCR) (Negative) Influenza Type B (PCR) (Negative) - Radiology Data Chest X-ray: No acute processes. - EKG Data EKG #1 EKG results narrative: Atrial flutter. 116 bpm. No STEMI. Disposition Clinical Impression: tachycardia, Hypoxia Disposition: 02 To [facility] Condition: Stable Time of Disposition: 13:30 (admit. Dr. Crouch. ) - Seen By: physician
--- OUTSIDE RECORDS SUMMARY | 2017-06-03 10:51 | External Medical Summary | Referral Summary ---
:1930 Author Organization [facility] Address [address] [place] [address] [place] [address] Care Team Providers Name Role Phone Shira Woods Primary Care Physician Encounter VC Date(s): 07/01/15 - 07/01/15 [facility] [address] [place] [phone] [place] Discharge Disposition: 01-Home or Self Care Attending Physician: Adriel Pepe APRN Admitting Physician: Adriel Pepe APRN Vital Signs Most recent to oldest [Reference Range]: 1 Peripheral Pulse Rate [60-100 bpm] 78 bpm (07/01/15 1:47 PM) Respiratory Rate [14-20 br/min] 18 br/min (07/01/15 1:47 PM) Blood Pressure [90-140/60-90 mmHg] 148/72 mmHg *HI* (07/01/15 1:47 PM) SpO2 98 % (07/01/15 1:47 PM) Problem List Condition Effective Dates Status Health Status Informant Acute pain(Confirmed) Active Angina pectoris(Confirmed) Active Mild aortic insufficiency(Confirmed) Active Asthma(Confirmed) Active At risk for activity Active intolerance(Confirmed)1 At risk for injury(Confirmed)2 Active At risk of pressure sore(Confirmed) Active Atrial fibrillation Active (disorder)(Confirmed) Atrial fibrillation(Confirmed) Active Benign essential hypertension Active (disorder)(Confirmed) Cardiac pacemaker in situ Active (finding)(Confirmed) Chicken pox(Confirmed) Resolved Chronic atrial Active fibrillation(Confirmed) Chronic kidney disease Active (CKD)(Confirmed) Congestive heart failure(Confirmed) Active Coronary arteriosclerosis Active (disorder)(Confirmed) Coronary artery disease(Confirmed) Active Depression(Confirmed) Active Ear infections(Confirmed) Resolved Hx of renal artery Active stenosis(Confirmed) Headaches(Confirmed) Active Hearing loss(Confirmed) Active Heart attack(Confirmed) Active Hypercholesterolemia(Confirmed) Active Hypertension(Confirmed) Active Kidney disease(Confirmed) Active Obesity(Confirmed) Active Pulmonary HTN(Confirmed) Active Rheumatoid arthritis(Confirmed) Active S/P coronary artery stent Active placement(Confirmed) TIA (transient ischemic Resolved attack)(Confirmed) Tissue perfusion Active alteration(Confirmed)3 UTI (urinary tract Resolved infection)(Confirmed) 1Problem added automatically by system based on initiation of At Risk for Activity Intolerance Plan of [id number] added automatically by system based on initiation of Risk for Injury Plan of [id number] added automatically by system based on initiation of Tissue Perfusion Cerebral Plan of Care Allergies, Adverse Reactions, Alerts Substance Reaction Severity Status digoxin Active sulfamethoxazole GI upet Active trimethoprim GI upet Active Medications aspirin 325 mg oral tablet 325 mg 1 tabs, Oral, Daily, # 30 tabs, 0 Refill(s) Start Date: 05/27/15 Status: OrderedCartia XT 180 mg/24 hours oral capsule, extended release 2 caps, Oral, Daily, # 60 caps, 0 Refill(s) Start Date: 08/26/14 Status: Orderedcarvedilol 25 mg oral tablet 1 tabs, Oral, BID, take with food, # 60 tabs, 0 Refill(s) Start Date: 08/26/14 Status: Orderedferrous sulfate 325 mg (65 mg elemental iron) oral tablet 1 tabs, Oral, Daily, # 30 tabs, 0 Refill(s) Start Date: 08/26/14 Status: OrderedKlor-Con M20 20 mEq, Oral, TIDWM, 0 Refill(s) Start Date: 03/07/15 Status: OrderedLasix 40 mg, Oral, BID, 0 Refill(s) Start Date: 03/07/15 Status: Orderedlosartan 100 mg, Oral, Bedtime (once a day), 0 Refill(s) Start Date: 03/07/15 Status: OrderedPradaxa 75 mg oral capsule 75 mg 1 [...] Pacemaker Tubal ligation 1auto-populated from documented surgical [id number] lpolyp, no findings to explain anemia, follow up with PCP or assistant manager airside operations in 4-[id number] Sabino [email or web address] stents,7See Conversion Document. Social History Social History Type Response Smoking Status Former smoker Assessment and Plan No data available for this section
--- OUTSIDE RECORDS SUMMARY | 2017-06-03 10:51 | External Medical Summary | Referral Summary ---
:1930 Author Organization [facility] [place] [address] [place] [address] Care Team Providers Name Role Phone ChuckShira Primary Care Physician Encounter VC Date(s): 01/08/15 - 01/08/15 [facility] [place] [address] [place] [phone] [place] Discharge Diagnosis: Visit for suture removal Discharge Disposition: 01-Home or Self Care Attending Physician: Madai Le APRN Admitting Physician: Madai Le APRN Vital Signs Most recent to oldest [Reference Range]: 1 Temperature Tympanic [36.6-38.1 degC] 36.5 degC *LOW* (01/08/15 3:33 PM) Peripheral Pulse Rate [60-100 bpm] 84 bpm (01/08/15 3:33 PM) Blood Pressure [90-140/60-90 mmHg] 152/88 mmHg *HI* (01/08/15 3:33 PM) Problem List Condition [...] At Risk for Activity Intolerance Plan of [id number] added automatically by system based on initiation of Risk for Injury Plan of [id number] added automatically by system based on initiation [...] Pacemaker Tubal ligation 1auto-populated from documented surgical [id number] lpolyp, no findings to explain anemia, follow up with PCP or pmo project manager in 4-[email or web address][address] Sabino [email or web address] stents,7See Conversion Document. Social History Social History Type Response Smoking Status Former smoker Assessment and Plan Extracted from: Title: Office Visit Note Author: Madai Le BROACH SETTER Date: 05/28/15 Assessment/Plan 1.Visit for suture removal Sutures were removed from the laceration on the medial aspect of the left elbow without issue. I do not recall if there is any signs of secondary infection or if the wou nd edges were approximated. I presume sutures were removed per usual technique without issue.
--- OUTSIDE RECORDS SUMMARY | 2017-06-03 10:51 | External Medical Summary | Referral Summary ---
:1930 Author Organization [facility] [address] [place] [address] Care Team Providers Name Role Phone ChuckShira Primary Care Physician Encounter VC Date(s): 02/03/15 - 02/03/15 [facility] [address] [place] [phone] [place] Discharge Diagnosis: Uterine prolapse Discharge Diagnosis: Post-menopausal bleeding Discharge Disposition: 01-Home or Self Care Attending Physician: Malgorzata Luna APRN Admitting Physician: Malgorzata Luna APRN Vital Signs Most recent to oldest [Reference Range]: 1 Temperature Tympanic [36.6-38.1 degC] 35.7 degC *LOW* (02/03/15 1:51 PM) Peripheral Pulse Rate [60-100 bpm] 68 bpm (02/03/15 1:51 PM) Blood Pressure [90-140/60-90 mmHg] 136/82 mmHg (02/03/15 1:51 PM) Problem List Condition Effective Dates Status Health Status Informant Angina pectoris(Confirmed) Active Asthma(Confirmed) Active Atrial fibrillation Active (disorder)(Confirmed) Atrial fibrillation(Confirmed) Active Benign essential hypertension Active (disorder)(Confirmed) Cardiac pacemaker in situ Active (finding)(Confirmed) Chicken pox(Confirmed) Resolved Congestive heart failure(Confirmed) Active Coronary arteriosclerosis Active (disorder)(Confirmed) Coronary artery disease(Confirmed) Active Depression(Confirmed) Active Ear infections(Confirmed) Resolved Headaches(Confirmed) Active Hearing loss(Confirmed) Active Heart attack(Confirmed) Active Hypercholesterolemia(Confirmed) Active Hypertension(Confirmed) Active Kidney disease(Confirmed) Active Obesity(Confirmed) Active Rheumatoid arthritis(Confirmed) Active TIA (transient ischemic Resolved attack)(Confirmed) UTI (urinary tract Resolved infection)(Confirmed) Allergies, Adverse Reactions, Alerts Substance Reaction Severity Status digoxin Active sulfamethoxazole GI upet Active trimethoprim GI upet Active Medications ascorbic acid 500 mg oral tablet 1 tabs, Oral, Daily, # 30 tabs, 0 Refill(s) Start Date: 08/26/14 Status: Orderedaspirin 81 mg oral tablet 81 mg 1 tabs, Oral, Daily, # 90 tabs, 0 Refill(s) Start Date: 01/02/15 Status: OrderedCartia XT 180 mg/24 hours oral [...] tabs, 0 Refill(s) Start Date: 08/26/14 Status: Orderedfurosemide 40 mg oral tablet See Instructions, TAKE ONE TABLET BY MOUTH TWICE A DAY, # 60 tabs, 2 Refill(s), eRx: [facility] #[id number], TAKE ONE TABLET BY MOUTH TWICE A DAY Start Date: 11/22/14 Status: OrderedKlor-Con 20 mEq, Oral, TID, 0 Refill(s) Start Date: 01/02/15 Status: Orderedlosartan 100 mg oral tablet 1 tabs, Oral, Daily, # 30 tabs, 0 Refill(s) Start Date: 08/26/14 Status: OrderedPradaxa 75 mg oral capsule 75 mg 1 caps, Oral, BID, # 60 caps, 0 Refill(s) Start Date: 01/02/15 Status: OrderedTylenol with Codeine #3 1 tabs, Oral, q6hr, as needed for pain, 0 Refill(s) Start Date: 12/27/14 Status: OrderedVitamin B-12 1000 mcg oral tablet 1 tabs, [...] Carotid endarterectomy HEART STENTS6 Pacemaker Tubal ligation [id number] lpolyp, no findings to explain anemia, follow up with PCP or laborer wharf in 4-[id number]. Sabino [id number] stents,6See Conversion Document. Social History Social History Type Response Smoking Status Former smoker Assessment and Plan No data available for this section
--- OUTSIDE RECORDS SUMMARY | 2017-06-03 10:51 | External Medical Summary | Referral Summary ---
:1930 Author Organization [facility] [address] [place] [address] Care Team Providers Name Role Phone Shira Woods Primary Care Physician Encounter VC Date(s): 03/24/16 - 03/24/16 [facility] [address] [place] [phone] [place] Discharge Diagnosis: Dementia Discharge Diagnosis: Encounter for immunization Discharge Diagnosis: Depression Discharge Disposition: 01-Home or Self Care Attending Physician: Shira Woods DO Admitting Physician: Shira Woods DO Vital Signs Most recent to oldest [Reference Range]: 1 Temperature Tympanic [36.6-38.1 degC] 36.4 degC *LOW* (03/24/16 1:04 PM) Peripheral Pulse Rate [60-100 bpm] 67 bpm (03/24/16 1:04 PM) Blood Pressure [90-140/60-90 mmHg] 130/82 mmHg (03/24/16 1:04 PM) SpO2 96 % (03/24/16 [...] Hypertension(Confirmed) Active Kidney disease(Confirmed) Active Obesity(Confirmed) Active Dementia(Confirmed) Active Pulmonary HTN(Confirmed) Active Rheumatoid arthritis(Confirmed) Active S/P coronary artery stent Active placement(Confirmed) TIA (transient ischemic Resolved attack)(Confirmed) Tissue perfusion Active alteration(Confirmed)3 UTI (urinary tract Resolved infection)(Confirmed) 1Problem added automatically by system based on initiation of At Risk for Activity Intolerance Plan of [id number] added automatically by system based on initiation of Risk for Injury Plan of [id number] added automatically by system based on initiation of Tissue Perfusion Cerebral Plan of Care Allergies, Adverse Reactions, Alerts Substance Reaction Severity Status digoxin Active sulfamethoxazole GI upet Active trimethoprim GI upet Active Medications Aricept 10 mg oral tablet 10 mg 1 tabs, Oral, Bedtime (once a day), # 30 tabs, 0 Refill(s), other reason ( Rx) Start Date: 10/02/15 Status: Orderedaspirin 325 mg oral tablet 325 mg 1 [...] tabs, 0 Refill(s) Start Date: 08/26/14 Status: OrderedFLUoxetine 10 mg oral tablet 10 mg 1 tabs, Oral, Daily, # 30 tabs, 1 Refill(s), Pharmacy: [facility] # [id number], 1 tabs Oral Daily Start Date: 03/24/16 Status: Orderedfolic acid 1 mg oral tablet 1 mg 1 tabs, Oral, Daily, # 30 tabs, 0 Refill(s) Start Date: 09/22/15 Status: OrderedKlor-Con M20 20 mEq, Oral, TIDWM, 0 Refill(s) Start Date: 03/07/15 Status: OrderedLasix 40 mg oral tablet 40 mg, Oral, BID, # 180 tabs, 1 Refill(s), Pharmacy: [facility] #[id number], 40 mg Oral BID Start Date: 10/09/15 Status: Orderedlosartan 100 mg, Oral, Bedtime (once a day), 0 Refill(s) Start Date: 03/07/15 Status: OrderedPradaxa 75 mg oral capsule 75 mg 1 caps, Oral, BID, # 60 caps, 0 Refill(s) Start Date: 01/02/15 Status: OrderedVitamin B-12 1 tabs, Oral, Daily, 0 Refill(s) [...] Pacemaker Tubal ligation 1auto-populated from documented surgical [id number] lpolyp, no findings to explain anemia, follow up with PCP or raw silk grader in 4-6 [id number]. Sabino [id number] stents,7See Conversion Document. Social History Social History Type Response Smoking Status Former smoker Assessment and Plan Extracted from: Title: Office Visit Note Author: Shira Woods DO Date: 03/24/16 Assessment/Plan Dementia We will see if treating depression helps with some of this. Ordered: Office Visit Level 4 Est 78285 Depression Due to patient's diltiazem we will have the patient on fluoxetine as it does not interact. She will try 10 mg for 6 weeks and then return to clinic and we'll reevaluate. Ordered: Office Visit Level 4 Est 78019 Encounter for immunization, Need for influenza vaccination Flu shot provided today. Ordered: Office Visit Level 4 Est 19853
--- OUTSIDE RECORDS SUMMARY | 2017-06-03 10:51 | External Medical Summary | Referral Summary ---
:1930 Author Organization [facility] Address [address] [place] [address] [place] [address] Care Team Providers Name Role Phone ChuckShira Primary Care Physician Encounter VC Date(s): 01/02/15 - 01/02/15 [facility] [address] [place] [phone] [place] Discharge Diagnosis: Laceration of arm Discharge Disposition: 01-Home or Self Care Attending Physician: Jadon Corey MD Admitting Physician: Jadon Corey MD Vital Signs Most recent to oldest [Reference Range]: 1 Peripheral Pulse Rate [60-100 bpm] 72 bpm (01/02/15 11:22 AM) Respiratory Rate [14-20 br/min] 16 br/min (01/02/15 11:22 AM) Blood Pressure [90-140/60-90 mmHg] 154/64 mmHg *HI* (01/02/15 11:22 AM) Problem List Condition [...] At Risk for Activity Intolerance Plan of [id number] added automatically by system based on initiation of Risk for Injury Plan of [id number] added automatically by system based on initiation [...] Pacemaker Tubal ligation 1auto-populated from documented surgical [id number] lpolyp, no findings to explain anemia, follow up with PCP or manager ethics in 4-6 zzebf[address]ftrgDr. Sabino [id number] stents,7See Conversion Document. Social History Social History Type Response Smoking Status Former smoker Assessment and Plan Extracted from: Title: Office Visit Note Author: Jadon Corey MD Date: 01/02/15 Assessment/Plan Laceration of arm I didn't think that sutures were quite ready to come out yet. There is still a little bit of suggestion that the wound wasn't completely closed. I've recommended rechecking ear ly to mid week next week. I'll be out of town we may have to Madai see her. If she has trouble with it she'll let us know. She is to keep the area clean and dry. Ordered: Office Visit Level 2 Est 59404
--- OUTSIDE RECORDS SUMMARY | 2017-06-03 10:51 | External Medical Summary | Referral Summary ---
:1930 Author Organization [facility], [place]nie [address] [place] [address] Care Team Providers Name Role Phone Shira Woods Primary Care Physician Encounter VC Date(s): 08/27/15 - 08/27/15 [facility] [place] [phone] [place] Discharge Diagnosis: Memory loss, short term Discharge Diagnosis: Atrial fibrillation Discharge Diagnosis: Benign essential hypertension (disorder) Discharge Diagnosis: Coronary artery disease Discharge Disposition: 01-Home or Self Care Attending Physician: Shira Woods DO Admitting Physician: Shira Woods DO Vital Signs Most recent to oldest [Reference Range]: 1 Peripheral Pulse Rate [60-100 bpm] 68 bpm (08/27/15 1:56 PM) Respiratory Rate [14-20 br/min] 18 br/min (08/27/15 1:56 PM) Blood Pressure [90-140/60-90 mmHg] 172/88 mmHg *HI* (08/27/15 1:56 PM) SpO2 98 % [...] At Risk for Activity Intolerance Plan of Ghxy2Uvkekug added automatically by system based on initiation of Risk for Injury Plan of Ckup2Rkyldal added automatically by system based on initiation [...] Pacemaker Tubal ligation 1auto-populated from documented surgical zejb2snmttj1younneuk lpolyp, no findings to explain anemia, follow up with PCP or industrial eng in 4-6 [address]sv[address]horsDr[address] Sabino [id number] stents,7See Conversion Document. Social History Social History Type Response Smoking Status Former smoker Assessment and Plan Extracted from: Title: Office Visit Note Author: Shira Woods DO Date: 08/27/15 Assessment/Plan Atrial fibrillation Continue Pradaxa, continue as per cardiology. Ordered: Office Visit Level 4 Est 80245 Benign essential hypertension (disorder) Recheck blood pressure was improved at 152/76. Continue as per cardiology. Return to clinic 6 months. Ordered: Office Visit Level 4 Est 33246 Coronary artery disease Continue as per cardiology. Continue current regimen. Ordered: Office Visit Level 4 Est 05239 Memory loss, short term We discussed possible reasons for this memory loss includingthe microvascular changes seen on CT scan as well as the old stroke seen. They should keep appointment with Dr Kassi Medina in a monthand let me know if I can be of any assistance. Return to clinic 6 months. Ordered: Office Visit Level 4 Est 39240
--- OUTSIDE RECORDS SUMMARY | 2017-06-03 10:51 | External Medical Summary | Referral Summary ---
:1930 Author Organization [facility] Address [address] [place] [address] Care Team Providers Name Role Phone Shira Woods Primary Care Physician Encounter VC Date(s): 03/07/15 - 03/11/[address] [phone] Discharge Diagnosis: Chronic atrial fibrillation Discharge Diagnosis: [...] Bliss MD Vital Signs Most recent to oldest [Reference Range]: 1 Temperature Axillary [35.2-36.7 degC] 36.7 degC (03/10/15 4:00 PM) Temperature Oral [35.8-37.3 degC] 36.7 degC (03/11/15 11:53 AM) Temperature Skin [36-37 degC] 36.1 degC (03/08/15 9:30 AM) Peripheral Pulse Rate [60-100 bpm] 66 bpm (03/11/15 11:53 AM) Heart Rate Monitored [60-100 bpm] 70 bpm (03/10/15 4:00 PM) Respiratory Rate [14-20 br/min] 16 br/min (03/11/15 11:53 AM) Blood Pressure [90-140/60-90 mmHg] 101/61 mmHg (03/11/15 11:53 AM) Mean Arterial Pressure, Cuff 84 mmHg (03/08/15 9:30 AM) SpO2 96 % (03/11/15 [...] At Risk for Activity Intolerance Plan of Nsdf8Bzafumd added automatically by system based on initiation of Risk for Injury Plan of Duxs2Zvbgfbz added automatically by system based on initiation of Tissue Perfusion Cerebral Plan of Care Allergies, Adverse Reactions, Alerts Substance Reaction Severity Status digoxin Active sulfamethoxazole GI upet Active trimethoprim GI upet Active Medications aspirin 81 mg oral tablet 81 mg 1 tabs, Oral, BID, Give BID for20 days post hospital discharge for DVT prophylaxis then resumedaily dosing, # 90 tabs, 0 Refill(s) Start Date: 01/02/15 Status: OrderedCartia XT 180 mg/24 hours oral capsule, extended release 2 caps, Oral, Daily, # 60 caps, 0 Refill(s) Start Date: 08/26/14 Status: Orderedcarvedilol 25 mg oral tablet 1 tabs, Oral, BID, take with food, # 60 tabs, 0 Refill(s) Start Date: 08/26/14 Status: Orderedestradiol 0.1 mg/g vaginal cream 1 g, Vaginal, 3x/Wk, Apply a thin film as directed., # 60 g, 1 Refill(s) Start Date: 02/20/15 Status: Orderedferrous sulfate 325 mg (65 mg elemental iron) oral tablet 1 tabs, Oral, Daily, # 30 tabs, 0 Refill(s) Start Date: 08/26/14 Status: OrderedKlor-Con M20 20 mEq, Oral, TIDWM, 0 Refill(s) Start Date: 03/07/15 Status: OrderedLasix 40 mg, Oral, BID, 0 Refill(s) Start Date: 03/07/15 Status: Orderedlosartan 100 mg, Oral, Bedtime (once a day), 0 Refill(s) Start Date: 03/07/15 Status: Orderednitroglycerin 0.4 mg sublingual tablet 0.4 mg 1 tabs, SubLingual, q5min, Angina/Chest Pain, 0 Refill(s) Start Date: 03/11/15 Status: OrderedNorco 5 mg-325 mg oral tablet 1-2 tabs, Oral, q4hr, Pain Moderate (4-6), # 30 tabs, 0 Refill(s) Start Date: 03/11/15 Stop Date: 04/10/15 Status: OrderedPradaxa 75 mg oral capsule 75 mg 1 caps, Oral, BID, # 60 caps, 0 Refill(s) Start Date: 01/02/15 Status: Ordered Results Hematology Most recent to oldest [Reference Range]: 1 WBC [4.8-10.8 10*3/uL] 5.3 10*3/uL (03/11/15 5:25 AM) RBC [4.00-5.20] 2.70 *LOW* (03/11/15 5:25 AM) Hgb [12.0-16.0 gm/dL] 8.4 gm/dL *LOW* (03/11/15 5:25 AM) Hct [37.0-47.0 %] 26.7 % *LOW* (03/11/15 5:25 AM) MCV [82.0-99.0 fL] 98.9 fL (03/11/15 5:25 AM) MCH [27.0-32.0 pg] 31.1 pg (03/11/15 5:25 AM) MCHC [32.0-36.0 gm/dL] 31.5 gm/dL *LOW* (03/11/15 5:25 AM) RDW [11.5-14.5 %] 13.2 % (03/11/15 5:25 AM) Platelet [150-400 10*3/uL] 123 10*3/uL *LOW* (03/11/15 5:25 AM) MPV [9.4-12.4 fL] 11.4 fL (03/11/15 5:25 AM) Immature Granulocytes [0.0-1.0 %] 0.4 % (03/07/15 9:02 AM) Neutrophils [51-75 %] 86 % *HI* (03/07/15 9:02 AM) Lymphocytes [20-46 %] 7 % *LOW* (03/07/15 9:02 AM) Monocytes [4-11 %] 5 % (03/07/15 9:02 AM) Eosinophils [0-4 %] 2 % (03/07/15 9:02 AM) Basophils [0-2 %] 0 % (03/07/15 9:02 AM) Neutro Absolute [1.90-7.00 10*3] 9.59 10*3 *HI* (03/07/15 9:02 AM) Lymph Absolute [0.80-3.30 10*3] 0.76 10*3 *LOW* (03/07/15 9:02 AM) [place] Absolute [0.30-1.00 10*3] 0.55 10*3 (03/07/15 9:02 AM) Eos Absolute [0.00-0.50 10*3] 0.25 10*3 (03/07/15 9:02 AM) Baso Absolute [0.00-0.20 10*3] 0.02 10*3 (03/07/15 9:02 AM) Nucleated RBC Automated [0 /100 WBC] 0.0 /100 WBC (03/07/15 9:02 AM) Coagulation Most recent to oldest [Reference Range]: 1 INR [0.9-1.2] 1.5 *HI* (03/08/15 10:17 AM) Chemistry Most recent to oldest [Reference Range]: 1 Sodium Lvl [136-144 mEq/L] 137 mEq/L (03/11/15 5:25 AM) Potassium Lvl [3.6-5.1 mEq/L] 4.5 mEq/L (03/11/15 5:25 AM) Chloride [99-109 mEq/L] 110 mEq/L *HI* (03/11/15 5:25 AM) CO2 [22-32 mEq/L] 22 mEq/L (03/11/15:25 AM) AGAP [3-20] 5 (03/11/15 5:25 AM) BUN [4-20 mg/dL] 27 mg/dL *HI* (03/11/15 5:25 AM) Glucose Lvl [70-100 mg/dL] 110 mg/dL *HI* (03/11/15 5:25 AM) Creatinine Lvl [0.44-1.03 mg/dL] 1.01 mg/dL (03/11/15 5:25 AM) eGFR [>60] 52 1 *ABN* (03/11/15:25 AM) Calcium Lvl [8.6-10.0 mg/dL] 8.4 mg/dL *LOW* (03/11/15 5:25 AM) Albumin Lvl [3.5-4.8 gm/dL] 3.5 gm/dL (03/07/15 9:02 AM) Total Protein [6.1-7.9 gm/dL] 6.7 gm/dL (03/07/15 9:02 AM) Globulin [1.9-4.3 gm/dL] 3.2 gm/dL (03/07/15 9:02 AM) ALT [14-54 U/L] 13 U/L *LOW* (03/07/15 9:02 AM) AST [15-41 U/L] 18 U/L (03/07/15 9:02 AM) Alk Phos [26-104 U/L] 64 U/L (03/07/15 9:02 AM) Bili Total [0.2-1.2 mg/dL] 0.6 mg/dL 2 (03/07/15 9:02 AM) Troponin [<0.06 ng/mL] <0.05 ng/mL (03/10/15 8:58 AM) Blood Glucose, Capillary [70-100 mg/dL] 118 mg/dL *HI* (03/08/15 5:04 AM) 1Result Comment: Multiply eGFR results by 1.21 for race.2Result Comment: Naproxen, specifically the metabolite O-desmethylnaproxen, may cause spurious elevation in Total Bilirubin levels.Urinalysis Most recent to oldest [Reference Range]: 1 UA Color Lt Yellow (03/07/15 9:02 AM) UA Appear Clear (03/07/15 9:02 AM) UA pH [5.0-8.0] 7.0 (03/07/15 9:02 AM) UA Leuk Est [Negative] Negative (03/07/15 9:02 AM) UA Nitrite [Negative] Negative (03/07/15 9:02 AM) UA Protein [Negative] Negative (03/07/15 9:02 AM) UA Glucose [Negative] Negative (03/07/15 9:02 AM) UA Ketones [Negative] Negative (03/07/15 9:02 AM) UA Urobilinogen [<1.0] Negative (03/07/15 9:02 AM) UA Bili [Negative] Negative (03/07/15 9:02 AM) UA Blood [Negative] Negative (03/07/15 9:02 AM) UA Spec Grav [1.003-1.030] 1.006 (03/07/15 9:02 AM) Type Catheter (03/07/15 9:02 AM) Blood Bank Results Most recent to oldest [Reference Range]: 1 ABO/Rh A POS (03/07/15 3:58 PM) Antibody [...] Pacemaker Tubal ligation 1auto-populated from documented surgical [id number] lpolyp, no findings to explain anemia, follow up with PCP or mechanics handyman in 4-[id number]. Sabino [id number] stents,7See Conversion Document. Social History Social History Type Response Smoking Status Former smoker Assessment and Plan No data available for this section
--- OUTSIDE RECORDS SUMMARY | 2017-06-03 10:51 | External Medical Summary | Referral Summary ---
:1930 Author Organization [facility] Address [address] [place] [address] [place] [address] Care Team Providers Name Role Phone Shira Woods Primary Care Physician Encounter VC Date(s): 02/17/15 - 02/17/15 [facility] [place] [phone] [place] Discharge Disposition: 01-Home or Self Care Attending Physician: Malgorzata Luna APRN Admitting Physician: Malgorzata Luna APRN Vital Signs Most recent to oldest [Reference Range]: 1 Peripheral Pulse Rate [60-100 bpm] 62 bpm (02/17/15 2:05 PM) Blood Pressure [90-140/60-90 mmHg] 140/66 mmHg (02/17/15 2:05 PM) Problem List Condition Effective [...] directed., # 100 g, 0 Refill(s), Pharmacy: [facility] #[id number] Start Date: 02/17/15 Stop Date: 03/19/15 Status: Orderedferrous sulfate 325 mg (65 mg elemental iron) oral tablet 1 tabs, Oral, Daily, # 30 tabs, 0 Refill(s) Start Date: 08/26/14 Status: Orderedfurosemide 40 mg oral tablet See Instructions, TAKE ONE TABLET BY MOUTH TWICE A DAY, # 60 tabs, 2 Refill(s), eRx: [facility] #[id number], TAKE ONE TABLET BY MOUTH TWICE A DAY Start Date: 11/22/14 Status: OrderedKlor-Con 20 mEq, Oral, TID, 0 Refill(s) Start Date: 01/02/15 Status: OrderedKlor-Con M20 oral tablet, extended release See Instructions, TAKE ONE TABLET BY MOUTH THREE TIMES A DAY WITH MEALS, # 270 tabs, 1 Refill(s), eRx: [facility] #[id number], TAKE ONE TABLET BY MOUTH THREE TIMES A DAY WITH MEALS Start Date: 02/17/15 Status: Orderedlosartan 100 mg oral tablet 1 [...] (Td) adult/adol 12/26/14 1Result Comment: charting by Crisyt Nolasco, RN, CDE Procedures Procedure Date Related Diagnosis Body Site Colonoscopy1 06/24/14 Esophagogastroduodenoscopy2 06/24/14 Endarterectomy of common carotid artery3 10/2010 Insertion of renal artery stent4 10/2008 left renal stent 10/2008 Placement of stent in cardiac conduit5 10/2008 DC cardioversion of paroxysmal atrial 09/2008 fibrillation Appendectomy Blood transfusion bypass tract ablation Carotid endarterectomy HEART STENTS6 Pacemaker Tubal ligation [id number] lpolyp, no findings to explain anemia, follow up with PCP or live ammunition inspector in 4-6 [address]ff[address]ftDr. Sabino [id number] stents,6See Conversion Document. Social History Social History Type Response Smoking Status Former smoker Assessment and Plan No data available for this section
--- OUTSIDE RECORDS SUMMARY | 2017-06-03 10:52 | External Medical Summary | Referral Summary ---
:1930 Author Organization [facility] Address [address] [place] [address] [place] [address] Care Team Providers Name Role Phone Shira Woods Primary Care Physician Encounter VC Date(s): 02/17/15 - 02/17/15 [facility] [place] [place] [phone] [place] Discharge Diagnosis: Third degree uterine prolapse Discharge [...] At Risk for Activity Intolerance Plan of Geui6Jdhfbbp added automatically by system based on initiation of Risk for Injury Plan of Gunv8Wwojhjy added automatically by system based on initiation [...] Pacemaker Tubal ligation 1auto-populated from documented surgical [id number] lpolyp, no findings to explain anemia, follow up with PCP or cordwood cutter helper in 4-6 tilsg6xxeqDr. Sabino [id number] stents,7See Conversion Document. Social History Social History Type Response Smoking Status Former smoker Assessment and Plan No data available for this section
--- OUTSIDE RECORDS SUMMARY | 2017-06-03 10:52 | External Medical Summary | Continuity of Care Document ---
:1930 Author Organization Via [facility] Allergies Active Description Code Type Severity Reaction Onset Reported/ Identified Relationship Clinical to Patient Status Yes Alvaro 147 Drug Unknown N/A Inhibitors Aller gy Yes Sulfa 491 Drug Unknown N/A (Sulfonamide Aller Antibiotics) gy Yes Digoxin 593 Drug Moderate DIARRHEA 10/26/2010 Aller gy Medications Medication Packaging Start Date Stop Date Route Dosage Sig 12/10/2016 ALUM-MAG 7 Q4HPRN HYDROXIDE-SIMETH 12/10/2016 DOCUSATE SODIUM 7 BIDPRN 12/10/2016 ACETAMINOPHEN 7 Q4HPRN 12/10/2016 ACETAMINOPHEN 7 Q4HPRN 12/10/2016 MAGNESIUM HYDROXIDE 7 HSPRN 12/10/2016 ATORVASTATIN 7 HS 12/10/2016 POTASSIUM CHLORIDE 7 0700 12/10/2016 DONEPEZIL 7 HS 12/10/2016 BUMETANIDE 7 Q12H 12/10/2016 NITROGLYCERIN IN 7 PRNIV D5W 12/11/2016 DILTIAZEM HCL 7 BID 12/11/2016 busPIRone 7 BID 12/11/2016 ACETAMINOPHEN 7 Q6H 12/11/2016 DABIGATRAN 7 BID ETEXILATE 12/11/2016 CARVEDILOL 7 BIDWM 12/11/2016 ALBUTEROL SULFATE 7 QIDRT FERROUS 12/11/2016 SULFATE 7 BIDWM 12/11/2016 guaiFENesin 7 Q12H 12/11/2016 LOSARTAN 7 QD 12/11/2016 DOCUSATE SODIUM 7 QD ASPIRIN 12/11/2016 7 QD 12/11/2016 FLUoxetine 7 QD 12/11/2016 MULTIVITAMIN 7 QD 12/11/2016 ASCORBIC ACID 7 QD 12/11/2016 CYANOCOBALAMIN 7 QD 12/11/2016 BUMETANIDE 7 ONCE 12/11/2016 POLYETHYLENE GLYCOL 7 QD 3350 12/11/2016 MULTIVITAMIN 7 HS 12/12/2016 LOSARTAN 7 QD 12/12/2016 BUMETANIDE 7 TID 12/12/2016 BUMETANIDE 7 TID 12/12/2016 POLYETHYLENE GLYCOL 7 ONCE 3350 SODIUM 12/12/2016 CHLORIDE 7 TIDPRN 12/12/2016 IPRATROPIUM-ALBUTER 7 QIDRT OL 12/12/2016 IPRATROPIUM-ALBUTER 7 QIDRT OL SODIUM 12/12/2016 CHLORIDE 7 QIDPRN 12/13/2016 MAGNESIUM OXIDE 7 QD 12/13/2016 HALOPERIDOL LACTATE 7 ONCE 12/13/2016 MIDAZOLAM 7 ONCE 12/13/2016 fentaNYL CITRATE 7 ONCE (PF) 12/13/2016 PIPERACILLIN-TAZOBA 7 Q6H CTAM 12/13/2016 HALOPERIDOL LACTATE 7 Q6HPRN 12/14/2016 PANTOPRAZOLE 7 ACBS 12/14/2016 POTASSIUM CHLORIDE 7 BIDWM 12/15/2016 POTASSIUM CHLORIDE 7 TIDWM 12/15/2016 PANTOPRAZOLE 7 ACBS 12/16/2016 LORazepam 7 Q2HPRN 12/16/2016 LABETALOL 7 Q4HPRN SODIUM 12/16/2016 CHLORIDE 0.9% 7 PRNIV 12/16/2016 HALOPERIDOL LACTATE 7 Q6HPRN SODIUM 12/17/2016 CHLORIDE 0.9 % 7 PRNIV 12/17/2016 BUMETANIDE 7 BID 12/17/2016 POTASSIUM CHLORIDE 7 TID 12/17/2016 POTASSIUM CHLORIDE 7 TIDWM 12/17/2016 POTASSIUM CHLORIDE 7 ONCE 12/18/2016 POTASSIUM CHLORIDE 7 TIDWM SODIUM 12/18/2016 CHLORIDE 7 QIDRTPRN 12/20/2016 BUMETANIDE 7 BID4PM Problems Date Dx Coded Attending Type Code Diagnosis Diagnosed By 08/31/2015 MATEO CABRAL P 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 Results Test Result Range CBC NO DIFF (HEMOGRAM) - 12/10/16 21:07 WBC - WHITE CELL COUNT 7.4 X10(3) 4.5-11.0 RBC - RED CELL COUNT 2.82 X10(6) 4.20-5.40 PLATELET COUNT 159 X10(3) 150-450 HEMOGLOBIN 8.1 g/dl 12.0-16.0 HEMATOCRIT 27.0 % 38.0-47.0 MCV 95.7 fL 80.0-96.0 MCH 29 pg 27-31 MCHC 30.0 % 32.0-36.0 BMP - BASIC METABOLIC PANEL - 12/10/16 21:07 GLUCOSE 119 mg/dl 74-106 BUN 29 mg/dl 7-18 CREATININE 1.17 mg/dl 0.55-1.02 eGFR 44 mL/min >60 SODIUM (NA) 141 mEq/L 136-146 POTASSIUM, BLOOD 4.1 mEq/L 3.5-5.1 CHLORIDE 103 mEq/L 98-107 CO2 (BICARBONATE) 37 mEq/L 21-32 CALCIUM 8.7 mg/dl 8.5-10.1 PROBNP - 12/10/16 21:07 PRO BNP 9538 pg/ml <=450 MAGNESIUM - 12/10/16 21:07 MAGNESIUM 2.1 mg/dl 1.8-2.4 TROPONIN-I - 12/10/16 21:07 TROPONIN-I <0.02 ng/ml <=0.05 DIGOXIN - 12/10/16 21:07 DIGOXIN <0.20 ng/ml 0.90-2.00 HOLD SPECIMEN FOR BLOOD BANK - 12/10/16 21:07 HOLD SPECIMEN FOR BLOOD BANK ARC TYPE T CROSS 1 UNIT RBCS - 12/10/16 21:07 TTC 1 ARC TIBC (INCLUDES IRON) - 12/10/16 21:07 IRON (IN HOUSE) 21 ug/dL 50-170 TIBC (IN HOUSE) 340 ug/dL 250-450 PERCENT SATURATION 6 % 15-50 UNBOUND IRON CONTENT 319 ug/dL 126-382 MRSA SCREEN, INFECTION CONTROL - 12/11/16 00:20 MRSA Screen by Culture Source: Nares Collected: 12/11/16 00:20 CBC NO DIFF (HEMOGRAM) - 12/11/16 04:48 WBC - WHITE CELL COUNT 6.0 X10(3) 4.5-11.0 RBC - RED CELL COUNT 2.73 X10(6) 4.20-5.40 PLATELET COUNT 169 X10(3) 150-450 HEMOGLOBIN 7.8 g/dl 12.0-16.0 HEMATOCRIT 25.8 % 38.0-47.0 MCV 94.5 fL 80.0-96.0 MCH 29 pg 27-31 MCHC 30.2 % 32.0-36.0 BMP - BASIC METABOLIC PANEL - 12/11/16 04:48 GLUCOSE 90 mg/dl 74-106 BUN 27 mg/dl 7-18 CREATININE 1.09 mg/dl 0.55-1.02 eGFR 48 mL/min >60 SODIUM (NA) 142 mEq/L 136-146 POTASSIUM, BLOOD 4.1 mEq/L 3.5-5.1 CHLORIDE 105 mEq/L 98-107 CO2 (BICARBONATE) 36 mEq/L 21-32 CALCIUM 8.7 mg/dl 8.5-10.1 MAGNESIUM - 12/11/16 04:48 MAGNESIUM 1.9 mg/dl 1.8-2.4 TROPONIN-I - 12/11/16 04:48 TROPONIN-I <0.02 ng/ml <=0.05 OCCULT BLOOD #1 - 12/11/16 08:30 OCCULT BLOOD POS NEG HEMOGLOBIN AND HEMATOCRIT - 12/11/16 14:55 HEMOGLOBIN 8.7 g/dl 12.0-16.0 HEMATOCRIT 28.6 % 38.0-47.0 OCCULT BLOOD #2 - 12/11/16 15:30 OCCULT BLOOD POS NEG TROPONIN-I - 12/11/16 15:30 TROPONIN-I <0.02 ng/ml <=0.05 OCCULT BLOOD #3 - 12/11/16 18:00 OCCULT BLOOD POS NEG CBC NO DIFF (HEMOGRAM) - 12/12/16 05:20 WBC - WHITE CELL COUNT 5.8 X10(3) 4.5-11.0 RBC - RED CELL COUNT 3.04 X10(6) 4.20-5.40 PLATELET COUNT 165 X10(3) 150-450 HEMOGLOBIN 8.9 g/dl 12.0-16.0 HEMATOCRIT 28.3 % 38.0-47.0 MCV 93.1 fL 80.0-96.0 MCH 29 pg 27-31 MCHC 31.4 % 32.0-36.0 MAGNESIUM - 12/12/16 05:20 MAGNESIUM 1.9 mg/dl 1.8-2.4 BMP - BASIC METABOLIC PANEL - 12/12/16 05:20 GLUCOSE 93 mg/dl 74-106 BUN 31 mg/dl 7-18 CREATININE 1.14 mg/dl 0.55-1.02 eGFR 45 mL/min >60 SODIUM (NA) 144 mEq/L 136-146 POTASSIUM, BLOOD 3.7 mEq/L 3.5-5.1 CHLORIDE 104 mEq/L 98-107 CO2 (BICARBONATE) 37 mEq/L 21-32 CALCIUM 8.7 mg/dl 8.5-10.1 PROBNP - 12/12/16 05:20 PRO BNP 05988 pg/ml <=450 CBC WITH DIFF (REFLEX) - 12/13/16 04:05 WBC - WHITE CELL COUNT 6.0 X10(3) 4.5-11.0 RBC - RED CELL COUNT 3.27 X10(6) 4.20-5.40 PLATELET COUNT 183 X10(3) 150-450 HEMOGLOBIN 9.5 g/dl 12.0-16.0 HEMATOCRIT 30.1 % 38.0-47.0 MCV 92.0 fL 80.0-96.0 MCH 29 pg 27-31 MCHC 31.6 % 32.0-36.0 LYMPHS % 20-45 MONOS % 0-15 SEGS % 40-80 BANDS % 0-5 EOS % 0-3 BASOS % N/A-N/A METAS MYELOS PROMYELO BLASTS NRBC N/A-5 ANISO POIK MACROCYTIC MICROCYTIC HYPO POLY OVALO MANUAL DIFFERENTIAL HEADING M.DIFF REACT LYM % 0-1 RBC MORP WBC MORP PLT MORP MAGNESIUM - 12/13/16 04:05 MAGNESIUM 1.8 mg/dl 1.8-2.4 PROBNP - 12/13/16 04:05 PRO BNP 9351 pg/ml <=450 BMP - BASIC METABOLIC PANEL - 12/13/16 04:05 GLUCOSE 98 mg/dl 74-106 BUN 27 mg/dl 7-18 CREATININE 1.06 mg/dl 0.55-1.02 eGFR 49 mL/min >60 SODIUM (NA) 141 mEq/L 136-146 POTASSIUM, BLOOD 3.1 mEq/L 3.5-5.1 CHLORIDE 100 mEq/L 98-107 CO2 (BICARBONATE) 37 mEq/L 21-32 CALCIUM 9.0 mg/dl 8.5-10.1 HOLD SPECIMEN FOR BLOOD BANK - 12/13/16 04:05 HOLD SPECIMEN FOR BLOOD BANK ARC CULTURE, BRONCHIAL WASHING T GRAM STAIN - 12/13/16 17:15 Bronchial Culture with Gram Stain Source: Bronchial Washing Collected: 12/13/16 17:15 I-STAT EG 7+ - 12/13/16 18:14 I-STAT NA mmol/L 137-145 I-STAT K mEq/L 3.5-5.1 I-STAT HEMATOCRIT 27 % PCV 38-47 I-STAT HEMOGLOBIN 9.2 g/dl 12.0-16.0 I-STAT IONIZED CALCIUM mmol/L 1.12-1.32 I-STAT PH 7.35 7.35-7.45 I-STAT PCO2 82 mm/Hg 35-45 I-STAT PO2 402 mm/Hg 80-105 I-STAT TCO2 48 mmol/L 23-27 I-STAT BASE EXCESS 17 mmol/L -2-3 I-STAT O2 SATURATION 100 % 95-98 I-STAT FiO2 100 I-STAT HCO3 46 mmol/L 22-26 CBC NO DIFF (HEMOGRAM) - 12/14/16 04:40 WBC - WHITE CELL COUNT 5.2 X10(3) 4.5-11.0 RBC - RED CELL COUNT 2.93 X10(6) 4.20-5.40 PLATELET COUNT 176 X10(3) 150-450 HEMOGLOBIN 8.5 g/dl 12.0-16.0 HEMATOCRIT 27.1 % 38.0-47.0 MCV 92.5 fL 80.0-96.0 MCH 29 pg 27-31 MCHC 31.4 % 32.0-36.0 MAGNESIUM - 12/14/16 04:40 MAGNESIUM 1.8 mg/dl 1.8-2.4 BMP - BASIC METABOLIC PANEL - 12/14/16 04:40 GLUCOSE 96 mg/dl 74-106 BUN 22 mg/dl 7-18 CREATININE 1.02 mg/dl 0.55-1.02 eGFR 52 mL/min >60 SODIUM (NA) 139 mEq/L 136-146 POTASSIUM, BLOOD 3.5 mEq/L 3.5-5.1 CHLORIDE 101 mEq/L 98-107 CO2 (BICARBONATE) 38 mEq/L 21-32 CALCIUM 8.7 mg/dl 8.5-10.1 CBC NO DIFF (HEMOGRAM) - 12/15/16 05:50 WBC - WHITE CELL COUNT 4.2 X10(3) 4.5-11.0 RBC - RED CELL COUNT 3.24 X10(6) 4.20-5.40 PLATELET COUNT 175 X10(3) 150-450 HEMOGLOBIN 9.3 g/dl 12.0-16.0 HEMATOCRIT 30.3 % 38.0-47.0 MCV 93.5 fL 80.0-96.0 MCH 29 pg 27-31 MCHC 30.7 % 32.0-36.0 BMP - BASIC METABOLIC PANEL - 12/15/16 05:50 GLUCOSE 88 mg/dl 74-106 BUN 23 mg/dl 7-18 CREATININE 1.24 mg/dl 0.55-1.02 eGFR 41 mL/min >60 SODIUM (NA) 141 mEq/L 136-146 POTASSIUM, BLOOD 3.4 mEq/L 3.5-5.1 CHLORIDE 100 mEq/L 98-107 CO2 (BICARBONATE) 38 mEq/L 21-32 CALCIUM 8.6 mg/dl 8.5-10.1 MAGNESIUM - 12/15/16 05:50 MAGNESIUM 1.9 mg/dl 1.8-2.4 [facility] - BASIC METABOLIC PANEL - 12/16/16 04:50 GLUCOSE 98 mg/dl 74-106 BUN 25 mg/dl 7-18 CREATININE 1.30 mg/dl 0.55-1.02 eGFR 39 mL/min >60 SODIUM (NA) 137 mEq/L 136-146 POTASSIUM, BLOOD 3.3 mEq/L 3.5-5.1 CHLORIDE 98 mEq/L 98-107 CO2 (BICARBONATE) 39 mEq/L 21-32 CALCIUM 8.4 mg/dl 8.5-10.1 HOLD SPECIMEN FOR BLOOD BANK - 12/16/16 04:50 HOLD SPECIMEN FOR BLOOD BANK ARC CBC NO DIFF (HEMOGRAM) - 12/17/16 06:15 WBC - WHITE CELL COUNT 4.3 X10(3) 4.5-11.0 RBC - RED CELL COUNT 3.36 X10(6) 4.20-5.40 PLATELET COUNT 195 X10(3) 150-450 HEMOGLOBIN 9.7 g/dl 12.0-16.0 HEMATOCRIT 31.0 % 38.0-47.0 MCV 92.3 fL 80.0-96.0 MCH 29 pg 27-31 MCHC 31.3 % 32.0-36.0 [facility] - BASIC METABOLIC PANEL - 12/17/16 06:15 GLUCOSE 95 mg/dl 74-106 BUN 19 mg/dl 7-18 CREATININE 1.10 mg/dl 0.55-1.02 eGFR 47 mL/min >60 SODIUM (NA) 142 mEq/L 136-146 POTASSIUM, BLOOD 3.4 mEq/L 3.5-5.1 CHLORIDE 100 mEq/L 98-107 CO2 (BICARBONATE) 39 mEq/L 21-32 CALCIUM 8.7 mg/dl 8.5-10.1 I-STAT EG 7+ - 12/17/16 08:27 I-STAT NA mmol/L 137-145 I-STAT K mEq/L 3.5-5.1 I-STAT HEMATOCRIT % PCV 38-47 I-STAT HEMOGLOBIN g/dl 12.0-16.0 I-STAT IONIZED CALCIUM mmol/L 1.12-1.32 I-STAT PH 7.42 7.35-7.45 I-STAT PCO2 62 mm/Hg 35-45 I-STAT PO2 65 mm/Hg 80-105 I-STAT TCO2 42 mmol/L 23-27 I-STAT BASE EXCESS 14 mmol/L -2-3 I-STAT O2 SATURATION 92 % 95-98 I-STAT FiO2 2 I-STAT HCO3 41 mmol/L 22-26 CBC NO DIFF (HEMOGRAM) - 12/19/16 05:30 WBC - WHITE CELL COUNT 4.8 X10(3) 4.5-11.0 RBC - RED CELL COUNT 3.13 X10(6) 4.20-5.40 PLATELET COUNT 184 X10(3) 150-450 HEMOGLOBIN 9.0 g/dl 12.0-16.0 HEMATOCRIT 29.1 % 38.0-47.0 MCV 93.0 fL 80.0-96.0 MCH 29 pg 27-31 MCHC 30.9 % 32.0-36.0 BMP - BASIC METABOLIC PANEL - 12/19/16 05:30 GLUCOSE 88 mg/dl 74-106 BUN 26 mg/dl 7-18 CREATININE 1.15 mg/dl 0.55-1.02 eGFR 45 mL/min >60 SODIUM (NA) 137 mEq/L 136-146 POTASSIUM, BLOOD 4.4 mEq/L 3.5-5.1 CHLORIDE 101 mEq/L 98-107 CO2 (BICARBONATE) 34 mEq/L 21-32 CALCIUM 8.9 mg/dl 8.5-10.1 PROBNP - 12/19/16 05:30 PRO BNP 4180 pg/ml <=450 HOLD SPECIMEN FOR BLOOD BANK - 12/19/16 05:30 HOLD SPECIMEN FOR BLOOD BANK [facility] PROBNP - 12/20/16 03:35 PRO BNP 6932 pg/ml <=450 CMP - COMPREHENSIVE METABOLIC PANEL - 12/20/16 03:35 GLUCOSE 104 mg/dl 74-106 BUN 22 mg/dl 7-18 CREATININE 0.97 mg/dl 0.55-1.02 eGFR 55 mL/min >60 SODIUM (NA) 136 mEq/L 136-146 POTASSIUM, BLOOD 4.1 mEq/L 3.5-5.1 CHLORIDE 101 mEq/L 98-107 CO2 (BICARBONATE) 32 mEq/L 21-32 CALCIUM 9.1 mg/dl 8.5-10.1 ALBUMIN, SERUM 2.8 g/dl 3.4-5.0 PROTEIN, TOTAL 7.3 g/dl 6.4-8.2 AST (SGOT) 22 U/L 15-37 ALT (SGPT) 18 U/L 14-59 ALK PHOS 56 U/L 46-116 BILIRUBIN, TOTAL 0.4 mg/dl 0.2-1.0 CBC NO DIFF (HEMOGRAM) - 12/20/16 03:37 WBC - WHITE CELL COUNT 6.8 X10(3) 4.5-11.0 RBC - RED CELL COUNT 3.36 X10(6) 4.20-5.40 PLATELET COUNT 207 X10(3) 150-450 HEMOGLOBIN 9.7 g/dl 12.0-16.0 HEMATOCRIT 31.2 % 38.0-47.0 MCV 92.9 fL 80.0-96.0 MCH 29 pg 27-31 MCHC 31.1 % 32.0-36.0 CBC NO DIFF (HEMOGRAM) - 12/21/16 04:20 WBC - WHITE CELL COUNT 4.8 X10(3) 4.5-11.0 RBC - RED CELL COUNT 3.28 X10(6) 4.20-5.40 PLATELET COUNT 209 X10(3) 150-450 HEMOGLOBIN 9.6 g/dl 12.0-16.0 HEMATOCRIT 30.4 % 38.0-47.0 MCV 92.7 fL 80.0-96.0 MCH 29 pg 27-31 MCHC 31.6 % 32.0-36.0 BMP - BASIC METABOLIC PANEL - 12/21/16 04:20 GLUCOSE 93 mg/dl 74-106 BUN 22 mg/dl 7-18 CREATININE 0.99 mg/dl 0.55-1.02 eGFR 53 mL/min >60 SODIUM (NA) 137 mEq/L 136-146 POTASSIUM, BLOOD 4.7 mEq/L 3.5-5.1 CHLORIDE 102 mEq/L 98-107 CO2 (BICARBONATE) 34 mEq/L 21-32 CALCIUM 9.3 mg/dl 8.5-10.1 Encounters ACCT No. Visit Discharge Status Pt. Type Provider Facility Loc./Unit Complaint Date/Time [id number] 07/06/2013 07/06/2013 CLS Outpatient 13:00:00 23:59:59 [id number] 12/10/2016 12/22/2016 DIS Inpatient [place] [address] CHF 20:42:00 12:30:00 [facility] [id number] 08/22/2015 08/22/2015 DIS Outpatient [place], [place] US CAROTID 14:17:00 14:17:00 [facility] [id number] 07/18/2015 07/18/2015 DIS Outpatient [facility], aortic 13:04:00 13:04:00 MATEO stenosis [id number] 12/24/2014 12/24/2014 DIS Outpatient [facility], 780.79, 15:48:00 15:48:00 [facility] 285.9
--- OUTSIDE RECORDS SUMMARY | 2017-06-03 10:52 | External Medical Summary | Referral Summary ---
:1930 Author Care Team Providers Name Role Phone Britt Sparks Primary Care Physician Encounter [facility] [id number] Date(s): 08/26/14 - 08/26/14 [facility], Lonnie, [address] [place] [id number] Discharge Diagnosis: Need for vaccination with 13-polyvalent [...] Sparks MD Vital Signs Most recent to oldest [Reference Range]: 1 Temperature Tympanic [36.6-38.1 degC] 36.7 degC (08/26/14 11:17 AM) Peripheral Pulse Rate [60-100 bpm] 78 bpm (08/26/14 11:17 AM) Blood Pressure [90-140/60-90 mmHg] 134/84 mmHg (08/26/14 11:17 AM) Problem List Condition Effective [...] tabs, 0 Refill(s) Start Date: 08/26/14 Status: OrderedCartia XT 180 mg/24 hours oral capsule, extended release 2 caps, Oral, Daily, # 60 caps, 0 Refill(s) Start Date: 08/26/14 Status: Orderedcarvedilol 25 mg oral tablet 1 tabs, Oral, BID, take with food, # 60 tabs, 0 Refill(s) Special Instructions: take with food Start Date: 08/26/14 Status: Orderedferrous sulfate 325 mg (65 mg elemental iron) oral tablet 1 tabs, Oral, Daily, # 30 tabs, 0 Refill(s) Start Date: 08/26/14 Status: Orderedlosartan 100 mg oral tablet 1 tabs, Oral, Daily, # 30 tabs, 0 Refill(s) Start Date: 08/26/14 Status: OrderedVitamin B-12 1000 mcg oral tablet [...] Carotid endarterectomy HEART STENTS6 Pacemaker Tubal ligation [id number] lpolyp, no findings to explain anemia, follow up with PCP or child abuse worker in 4-[address] Sabino [id number] stents,6See Conversion Document. Social History Social History [...] some cases of heart failure, fluid may seth k up into your lungs or you may have swelling (edema ) in your lower legs. Heart failure is usually a long-term (chronic ) condition. It is important for you [...] ) with more force in order to c irculate blood throughout the body. High blood pressure eventually causes the heart to become stiff and weak. Coronary artery disease (CAD) is the buildup of cholesterol and fat ( plaque ) in the arteries of the heart. The blockage in the arteries deprives the heart muscle of oxygen and blood. This can caus e chest pain and may lead to a heart attack. High blood pressure can also contribute to CAD. Heart attack (myocardial infarction ) occurs when 1 or more arteries in the heart become blocked. The loss of oxygen damages the muscle tissue of the heart. When this happens, part of the heart mus annita dies. The injured tissue does not contract [...] to tiny blood vessels that carry important n utrients to the heart muscle. When the heart [...] Your medicines are needed every day. Take tzay-gqv-rfjwlix medicine only as directed by your caregiver [...] fresh or frozen fruits and vegetables, fish, jasmeet n meats, legumes, fat-free or low-fat dairy products, [...] Tell your caregiver if you drink alcohol s everal times a week. Talk with your caregiver [...] Released: 04/25/2006 Document Revised: 08/20/2013 Document Reviewed: 05/17/2013 [facility] Patient Information 2014 [employer]. No follow up information was provided. Extracted from: Title: Office Visit Note Author: Britt Sparks MD Date: 08/26/14 Assessment/Plan Atrial fibrillation Benign essential hypertension Recheck 6 months, sooner if needed. Prevnar today. Cardiac pacemaker in situ Congestive heart failure Coronary artery disease Depression Hypertension Kidney disease
--- OUTSIDE RECORDS SUMMARY | 2017-06-03 10:52 | External Medical Summary | Referral Summary ---
:1930 Author Organization [facility] [place] [address] [place] [address] Care Team Providers Name Role Phone Shira Woods Primary Care Physician Encounter [facility] Date(s): 05/12/16 - 05/12/16 [facility] [place] [place] [phone] [place] Discharge Diagnosis: Depression Discharge Diagnosis: Dementia Discharge Diagnosis: Hypertension Discharge Disposition: 01-Home or Self Care Attending Physician: Shira Woods DO Admitting Physician: Shira Woods DO Vital Signs Most recent to oldest [Reference Range]: 1 Temperature Tympanic [36.6-38.1 degC] 36.5 degC *LOW* (05/12/16 1:13 PM) Peripheral Pulse Rate [60-100 bpm] 94 bpm (05/12/16 1:13 PM) Blood Pressure [90-140/60-90 mmHg] 154/92 mmHg *HI* (05/12/16 1:13 PM) SpO2 98 % [...] arteriosclerosis Active (disorder)(Confirmed) Coronary artery disease(Confirmed) Active Ear infections(Confirmed) Resolved Hx of renal artery Active stenosis(Confirmed) Headaches(Confirmed) Active Hearing loss(Confirmed) Active Heart attack(Confirmed) Active Hypercholesterolemia(Confirmed) Active Hypertension(Confirmed) Active Kidney disease(Confirmed) Active Obesity(Confirmed) Active Dementia(Confirmed) Active Pulmonary HTN(Confirmed) Active Rheumatoid arthritis(Confirmed) Active Depression(Confirmed) Active S/P coronary artery stent Active placement(Confirmed) TIA (transient ischemic Resolved attack)(Confirmed) Tissue perfusion Active alteration(Confirmed)3 UTI (urinary tract Resolved infection)(Confirmed) 1Problem added automatically by system based on initiation of At Risk for Activity Intolerance Plan of [id number] added automatically by system based on initiation of Risk for Injury Plan of [id number] added automatically by system based on initiation [...] 0 Refill(s) Start Date: 08/26/14 Status: OrderedFLUoxetine 20 mg oral tablet 20 mg 1 tabs, Oral, Daily, # 30 tabs, 0 Refill(s), Pharmacy: [facility] # [id number], 1 tabs Oral Daily Start Date: 05/12/16 Status: Orderedfolic acid 1 mg oral tablet 1 mg 1 tabs, Oral, Daily, # 30 tabs, 0 Refill(s) Start Date: 09/22/15 Status: OrderedKlor-Con M20 20 mEq, Oral, TIDWM, 0 Refill(s) Start Date: 03/07/15 Status: OrderedLasix 40 mg oral tablet 40 mg, Oral, BID, # 180 tabs, 1 Refill(s), Pharmacy: [facility] #[id number], 40 mg Oral BID Start Date: 10/09/15 [...] 12/26/14 Recorded 1Result Comment: charting by Cristy Nolasco RN, [...] Pacemaker Tubal ligation 1auto-populated from documented surgical [id number] lpolyp, no findings to explain anemia, follow up with PCP or paint mixer machine in 4-[id number] Sabino [id number] stents,7See Conversion Document. Social History [...] monitor. Ordered: Office Visit Level 4 Est 42149 Depression As patient has tolerated the fluoxetine well and this is the only medication that doesn't her active with her heart medications we will go ahead and increase the dose to 20 mg and have the patient return to clinic in about 8 weeks to see how she is doing. Ordered: Office Visit Level 4 Est 08223 Hypertension Patient hasn't taken her antihypertensive today, she will return to clinicfor follow-up and we will make sure that her blood pressure is better at that time. Ordered: Office Visit Level 4 Est 31916
--- OUTSIDE RECORDS SUMMARY | 2017-06-03 10:52 | External Medical Summary | Referral Summary ---
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 Discharge Diagnosis: History of syncope Discharge Diagnosis: Acute UTI Discharge Disposition: 01-Home or Self Care Attending Physician: Shira Woods DO Vital Signs Most recent to oldest [Reference Range]: 1 Peripheral Pulse Rate [60-100 bpm] 70 bpm (11/06/15 2:29 PM) Respiratory Rate [14-20 br/min] 18 br/min (11/06/15 2:29 PM) Blood Pressure [90-140/60-90 mmHg] 130/70 mmHg (11/06/15 2:29 PM) SpO2 97 % (11/06/15 [...] At Risk for Activity Intolerance Plan of [id number] added automatically by system based on initiation of Risk for Injury Plan of [id number] added automatically by system based on initiation [...] tabs, 0 Refill(s) Start Date: 08/26/14 Status: Orderedfolic acid 1 mg oral tablet 1 mg 1 tabs, Oral, Daily, # 30 tabs, 0 Refill(s) Start Date: 09/22/15 Status: OrderedKlor-Con M20 20 mEq, Oral, TIDWM, 0 Refill(s) Start Date: 03/07/15 Status: OrderedLasix 40 mg oral tablet 40 mg, Oral, BID, # 180 tabs, 1 Refill(s), Pharmacy: [facility] #[id number], 40 mg Oral BID Start Date: 10/09/15 [...] Pacemaker Tubal ligation 1auto-populated from documented surgical [id number] lpolyp, no findings to explain anemia, follow up with PCP or algorithm design engineer in 4-6 [id number]. Sabino [id number] stents,7See Conversion Document. Social History Social History Type Response Smoking Status Former smoker Assessment and Plan Extracted from: Title: Office Visit Note Author: Shira Woods DO Date: 11/06/15 Assessment/Plan Acute UTI Resolved at this time. Ordered: Office Visit Level 4 Est 06928 History of syncope Resolved at this time. Discussed adequate water intake. 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 I also discussed with daughter that we cannot do anything about longterm admission if patient is unwilling togo there. She is sti llappropriate enough in her mental facilities to make this decision for herself. Ordered: Office Visit Level 4 Est 46468
--- OUTSIDE RECORDS SUMMARY | 2017-06-03 10:52 | External Medical Summary | Referral Summary ---
:1930 Author Organization [facility] Address [address] [place] [address] [place] [phone] Care Team Providers Name Role Phone Shira Woods Primary Care Physician Encounter VC Date(s): 05/27/15 - 05/27/15 [facility] [address] [place] [phone] [place] Discharge Disposition: 01-Home or Self Care Attending Physician: Adriel Pepe APRN Admitting Physician: Adriel Pepe APRN Vital Signs Most recent to oldest [Reference Range]: 1 Peripheral Pulse Rate [60-100 bpm] 65 bpm (05/27/15 1:51 PM) Respiratory Rate [14-20 br/min] 18 br/min (05/27/15 1:51 PM) Blood Pressure [90-140/60-90 mmHg] 152/70 mmHg *HI* (05/27/15 1:51 PM) SpO2 97 % [...] At Risk for Activity Intolerance Plan of [id number] added automatically by system based on initiation of Risk for Injury Plan of [id number] added automatically by system based on initiation [...] pain, 0 Refill(s) Start Date: 05/27/15 Status: OrderedPradaxa 75 mg oral capsule 75 mg 1 caps, Oral, BID, # 60 caps, 0 Refill(s) Start Date: 01/02/15 Status: Ordered Results Hematology Most recent to oldest [Reference Range]: 1 WBC [4.8-10.8 10*3/uL] 5.6 10*3/uL (05/27/15 3:00 PM) RBC [4.00-5.20] 4.50 (05/27/15 3:00 PM) Hgb [12.0-16.0 gm/dL] 13.5 gm/dL (05/27/15 3:00 PM) Hct [37.0-47.0 %] 42.4 % (05/27/15 3:00 PM) MCV [82.0-99.0 fL] 94.2 fL (05/27/15 3:00 PM) MCH [27.0-32.0 pg] 30.0 pg (05/27/15 3:00 PM) MCHC [32.0-36.0 gm/dL] 31.8 gm/dL *LOW* (05/27/15 3:00 PM) RDW [11.5-14.5 %] 13.5 % (05/27/15 3:00 PM) Platelet [150-400 10*3/uL] 218 10*3/uL (05/27/15 3:00 PM) MPV [8.8-14.8 fL] 10.8 fL (05/27/15 3:00 PM) Immature Granulocytes [0.0-1.0 %] 0.0 % (05/27/15 3:00 PM) Neutrophils [51-75 %] 72 % (05/27/15 3:00 PM) Lymphocytes [20-46 %] 16 % *LOW* (05/27/15 3:00 PM) Monocytes [4-11 %] 8 % (05/27/15 3:00 PM) Eosinophils [0-4 %] 4 % (05/27/15 3:00 PM) Basophils [0-2 %] 0 % (05/27/15 3:00 PM) Neutro Absolute [1.90-7.00 10*3] 4.02 10*3 (05/27/15 3:00 PM) Lymph Absolute [0.80-3.30 10*3] 0.91 10*3 (05/27/15 3:00 PM) Rapides Absolute [0.30-1.00 10*3] 0.44 10*3 (05/27/15 3:00 PM) Eos Absolute [0.00-0.50 10*3] 0.23 10*3 (05/27/15 3:00 PM) Baso Absolute [0.00-0.20 10*3] 0.02 10*3 (05/27/15 3:00 PM) Chemistry Most recent to oldest [Reference Range]: 1 Sodium Lvl [135-144 mEq/L] 141 mEq/L (05/27/15 3:00 PM) Potassium Lvl [3.5-5.2 mEq/L] 4.2 mEq/L (05/27/15 3:00 PM) Chloride [99-111 mEq/L] 103 mEq/L (05/27/15 3:00 PM) CO2 [22-31 mEq/L] 29 mEq/L (05/27/15 3:00 PM) AGAP [3-20] 9 (05/27/15 3:00 PM) BUN [10-20 mg/dL] 15 mg/dL (05/27/15 3:00 PM) Glucose Lvl [70-99 mg/dL] 100 mg/dL *HI* (05/27/15 3:00 PM) Creatinine Lvl [0.57-1.11 mg/dL] 0.86 mg/dL (05/27/15 3:00 PM) eGFR [>60 mL/min] >60 mL/min 1 (05/27/15 3:00 PM) Calcium Lvl [8.9-10.5 mg/dL] 9.8 mg/dL (05/27/15 3:00 PM) 1Result Comment: Multiply eGFR [...] Pacemaker Tubal ligation 1auto-populated from documented surgical [id number] lpolyp, no findings to explain anemia, follow up with PCP or taper/finisher in 4-6 [id number]. Sabino [email or web address] stents,7See Conversion Document. Social History Social History Type Response Smoking Status Former smoker Assessment and Plan No data available for this section
--- OUTSIDE RECORDS SUMMARY | 2017-06-03 10:52 | External Medical Summary | Referral Summary ---
:1930 Author Organization [facility] [place] [address] [place] [phone] Care Team Providers Name Role Phone Shira Woods Primary Care Physician Encounter VC Date(s): 02/03/15 - 02/03/15 [facility] [place] [address] [place] [phone] [place] Discharge Diagnosis: [...] At Risk for Activity Intolerance Plan of [id number] added automatically by system based on initiation of Risk for Injury Plan of [id number] added automatically by system based on initiation [...] (Td) adult/adol 12/26/14 1Result Comment: charting by Crsity Nolasco RN, CDE Procedures Procedure Date Related [...] Pacemaker Tubal ligation 1auto-populated from documented surgical [id number] lpolyp, no findings to explain anemia, follow up with PCP or gas jockey in 4-6 [id number]. Sabino [email or web address] stents,7See Conversion Document. Social History Social History Type Response Smoking Status Former smoker Assessment and Plan No data available for this section
--- NOTE | 2017-06-03 11:04 | XRay Report ---
Indication: sob Procedure: XR chest 1V: Encounter: Initial Comparison: 03/23/2017 Technique: A single portable AP chest radiograph was obtained. Findings: Evaluation limited by underpenetration of the radiograph an suboptimal leftward patient rotation. Life support devices: Unchanged left pectoral dual-chamber pacer device. Lungs and airways: Normal lung volumes. No focal airspace consolidation. Normal pulmonary vasculature. Pleura: No pleural effusion or pneumothorax. Heart and mediastinum: Aortic atherosclerosis. Cardiac size accentuation by AP technique. Mitral annular calcifications. Osseous structures and soft tissues: No acute osseous abnormality is seen. Degenerative arthrosis of the shoulders. Impression: No acute cardiopulmonary process. .
[2017-06-03] MEDS ORDERED: NS 1,000 ML IV ONE (11:58)
[2017-06-03] MEDS ORDERED: ACETAMINOPHEN 500 MG TABLET PO PRN (13:23)
--- NOTE | 2017-06-03 14:45 | History & Physical Report ---
History of Present Illness Date: 06/03/17 Chief complaint: None HPI: Paula Zee is an 86 year old woman who lives at [facility] in [place]. She's a poor historian and her niece/DPOA, Mary Kate, helps answer ROS questions. While Paula denies any symptoms other than a little bit of an upset stomach, Mary Kate gently corrects her regarding cough, dizziness with change in position, fever, nausea. Paula denies SOA, sweating, congestion or rhinorrhea, sore throat, dysphagia, headache, myalgias, weakness, falling, rashes, chest pain, palpitations, dysuria , vomiting, constipation, diarrhea, leg swelling. She was seen by Madai Le on rounds on 06/02/17, and staff reported that she vomited that morning and hasn't been eating/drinking as well (though pt did not recall these symptoms). Madai recommended to hold metolazone and Bumex until PO intake improved or weight is up 3 lbs; also Coreg was decreased to 12.5 mg BID b/c BP was 85/53. She's on chronic oxygen at 2L. She's been started on prophylactic Tamiflu. Staff called 911 due to fever of 102 and sats of 76-80% and she was taken to [facility] ED. CXR was negative. WBC was normal at 5.7. Na slightly low at 132. She was influenza A positive. Review of Systems All systems PM: 10-point ROS was reviewed, no additional remarkable complaints except - Constitutional Constitutional: Present: as per HPI - EENMT Eyes: Absent: change in vision Balance: Present: as per HPI Nose: Present: as per HPI Mouth/Throat: Present: as per HPI - Cardiovascular Cardiovascular: Present: as per HPI Vascular: Present: see HPI - Respiratory Respiratory: Present: as per HPI - Gastrointestinal Gastrointestinal: Present: as per HPI - Genitourinary Genitourinary: Present: as per HPI - Musculoskeletal Musculoskeletal: Present: as per HPI - Integumentary/Breasts Integumentary: Present: as per HPI - Neurological Neurological: Present: as per HPI - Psychiatric Psychiatric: Present: depression (history) - Endocrine Endocrine: Present: as per HPI - Allergic/Immunologic Allergic/Immunologic: Absent: seasonal rhinorrhea Past Medical History Depression Dementia CKD Systolic heart failure, chronic - last EF 55% 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 colonoscopy 2014. esophagogastroduodenoscopy 2014. endarterectomy of common carotid artery 2010. Insertion of renal artery stent 2008. placement of stent in cardiac conduit 2008. cardioverion 2008. Pacemaker Family History: Mother HTN, Diabetes, CHF, Asthma Father HTN, Myocardial infarct Sister Cancer, Anemia Brother Stroke, Heart attack Family History Updates: Reviewed; patient is unable to provide reliable updates. - Social History Smoking status: Former smoker Alcohol intake frequency: does not drink Housing: long-term Household members: other () Current occupational status: retired Social history: PCP _ Madai Le APRN CV _ Dr. Lazaro Medications Home Medications Medication Instructions Recorded Confirmed Type Carvedilol [Coreg] 25 mg PO BID #0 06/24/14 06/03/17 History dilTIAZem HCl [Cartia Xt] 180 mg PO BID #0 10/28/14 06/03/17 History Acetaminophen 650 mg PO Q6H #0 08/26/16 06/03/17 History Atorvastatin Calcium 40 mg PO HS #0 08/26/16 06/03/17 History Fluoxetine HCl 20 mg PO DAILY #0 08/26/16 06/03/17 History Losartan Potassium 25 mg PO DAILY #0 08/26/16 06/03/17 History Albuterol/Ipratropium [Duoneb] 1 unit AEROSOL Q4H PRN 12/10/16 06/03/17 History Ascorbic Acid [Vitamin C] 500 mg PO DAILY 12/10/16 06/03/17 History Bumetanide Tab [Bumex] 1 mg PO BID 12/10/16 06/03/17 History Buspirone HCl 30 mg PO BID 12/10/16 06/03/17 History Klor-Con M20 (potassium chloride 20 meq PO TID tab 03/23/17 06/03/17 History ER) 20 mEq tablet,(part/cryst) Protonix (Pantoprazole)40 mg 40 mg PO QAM 03/23/17 06/03/17 History tablet,delayed release Carvedilol [Carvedilol] 12.5 mg PO BID 06/03/17 06/03/17 History Cyanocobalamin (Vitamin B-12) 1,000 mcg PO DAILY 06/03/17 06/03/17 History [Vitamin B-12] Docusate Sodium 100 mg PO BID 06/03/17 06/03/17 History Donepezil [Aricept] 10 mg PO HS 06/03/17 06/03/17 History Metolazone [Zaroxolyn] 2.5 mg PO 2XW 06/03/17 06/03/17 History Multivitamin with Minerals 1 each PO HS 06/03/17 06/03/17 History [Vla-N-Lhri-Minerals] Oseltamivir Phosphate 75 mg PO BID 06/03/17 06/03/17 History Zinc Oxide/Petrolatum,White 1 applicatio TOP DAILY 06/03/17 06/03/17 History [[place] Moist Barrier Cream] guaiFENesin [Mucinex] 600 mg PO BID 06/03/17 06/03/17 History Allergies Allergy/AdvReac Type Severity Reaction Status Date / Time digoxin Allergy Unknown NAUSEA Verified 06/03/17 10:30 Sulfa (Sulfonamide AdvReac Mild GI SYMPTOMS Verified 06/03/17 10:30 Antibiotics) trimethoprim AdvReac Mild GI SYMPTOMS Verified 06/03/17 10:30 Exam Vital Signs: Temperature 99.1 F 06/03/17 13:47 Pulse Rate 115 H 06/03/17 13:47 Respiratory Rate 19 06/03/17 13:47 Blood Pressure 153/71 H 06/03/17 13:47 Pulse Oximetry 98 06/03/17 13:47 - Constitutional Present: no acute distress, well nourished, well developed, thin - Routine HEENT Exam Head: Present: normocephalic Eye: Present: PERRL, periorbital swelling (mild bilaterally). Absent: conjunctival icterus, scleral injection ENT: Present: mucous membranes dry, oropharynx clear - Routine Neck Exam Present: supple. Absent: lymphadenopathy - Routine Respiratory Exam Present: crackles (LLL) - Routine Cardiovascular Exam Present: S1, S2, tachycardia - Routine Abdominal Exam Present: soft, normoactive bowel sounds, non distended, non tender - Routine Extremities Exam Present: no edema, pulses intact - Routine Skin Exam Present: dry - Routine Neurological Exam Present: alert, oriented X3, CN II-XII intact, moving all extremities, vision grossly intact, hearing grossly intact, normal speech. 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 Tamiflu for influenza A; supportive care with DuoNeb and O2 - it appears she's on chronic O2 at 2L. N/V and hyponatremia: Zofran PRN; IVF at 100 mL/hr. Start with clear liquid diet and advance diet as tolerated. Recent hypotension and current tachycardia - hold Bumex, metolazone, and losartan. Coreg dose was reduced from 25 to 12.5 yesterday - will cont at THIS lower dose; also continue diltiazem. With hx of CHF she will require close resp status monitoring - external review of records has shown that she's required diuresis in the long-term for acute exacerbations. Discussed with Madai Le APRN and with Dr. Thurston. Code status: DNR. DVT Prophylaxis: SCD's GI Prophylaxis: Protonix Resuscitation Status: Do Not Resuscitate - Physician Narrative Physician: Jono Thurston MD Narrative: Date: 06/03/17 Time: 1555 Have independently interviewed and examined pt. Chart reviewed. Case discussed with ED provider and my AERIAL ADVERTISER. Care plan developed with my supervision; agree with above. Been feeling rough recently. Her dementia limits accuracy of details but it's very apparent she has been sickly. Appetite very decreased. Feels upset at stomach, not wanting to eat. Having nausea. Notes increased cough and congestion. More SOA this am. Temp elevated. Presents to ED for evaluation. CXR without acute infiltrate. Sodium mildly low. Tachycardic (Coreg dose decreased) . With patient's advanced age medical comorbidities, will place in OBD to initiate hydration and provide symptom support. Lungs: decreased, coarse upper airway noises. CV: tachy, regular AB: soft nt/ nd +BS GEN: looks acutely ill Plan: OBS admission. Cautious IVF use with her systolic heart failure. Continue Tamiflu. Supplemental O2. Clear liquids due to nausea - IV Zofran prn. Monitor lab. DNR per her requests. Care to return to PCP at time of discharge from [facility]. Hospital Course Summary Disclaimer: The visit summary below is not to be considered part of the above Progress Note. Hospital Course: 06/03/17 Admit, obs status for influenza A, n/v, and recent hypotension at [facility]. Tamiflu for influenza A; supportive care with DuoNeb and O2 - it appears she's on chronic O2 at 2L. N/V and hyponatremia: Zofran PRN; IVF at 100 mL/hr. Start with clear liquid diet and advance diet as tolerated. Recent hypotension and current tachycardia - hold Bumex, metolazone, and losartan. Bumex dose was reduced from 25 to 12.5 yesterday - will cont at THIS lower dose; also continue diltiazem. With hx of CHF she will require close resp status monitoring - external review of records has shown that she's required diuresis in the long-term for acute exacerbations.
[2017-06-03 15:01] VITALS: BMI 27.1
[2017-06-03] MEDS: NS 1,000 ML IV SCH ×2 (15:10→20:31)
[2017-06-03] MEDS ORDERED: ALBUTEROL/IPRATROPIUM 2.5mg-0.5mg/3ml NEB AEROSOL PRN (15:12)
[2017-06-03] MEDS ORDERED: ONDANSETRON 4 MG/2 ML INJECTION IVP PRN (15:18)
[2017-06-03] MEDS: ACETAMINOPHEN 325 MG TABLET PO SCH ×2 (16:33→20:33)
[2017-06-03] MEDS: CARVEDILOL 12.5 MG TABLET PO SCH (16:33)
[2017-06-03] MEDS: GUAIFENESIN LA 600 MG TABLET PO SCH (20:32)
[2017-06-03] MEDS: BUSPIRONE 15 MG TABLET PO SCH (20:32)
[2017-06-03] MEDS: DOCUSATE SODIUM 100 MG CAPSULE PO SCH (20:32)
[2017-06-03] MEDS ORDERED: DONEPEZIL 10 MG TABLET PO SCH (21:00)
[2017-06-03] MEDS ORDERED: ATORVASTATIN 40 MG TABLET PO SCH (21:00)
[2017-06-04] MEDS: ACETAMINOPHEN 325 MG TABLET PO SCH ×2 (03:36→08:44)
[2017-06-04] MEDS ORDERED: PANTOPRAZOLE 40 MG TABLET PO SCH (06:30)
[2017-06-04] MEDS: NS 1,000 ML IV SCH ×2 (06:30→11:39)
[2017-06-04 07:36] VITALS: BP 174/78; RESP 18; TEMP 98; O2SAT 98
[2017-06-04 08:36] VITALS: PULSE 81
[2017-06-04] MEDS: GUAIFENESIN LA 600 MG TABLET PO SCH (08:43)
[2017-06-04] MEDS: BUSPIRONE 15 MG TABLET PO SCH (08:43)
[2017-06-04] MEDS: CARVEDILOL 12.5 MG TABLET PO SCH (08:44)
[2017-06-04] MEDS: DOCUSATE SODIUM 100 MG CAPSULE PO SCH (08:44)
[2017-06-04] MEDS ORDERED: ASCORBIC ACID 500 MG TABLET PO SCH (09:00)
[2017-06-04] MEDS ORDERED: FLUoxetine 20 MG CAPSULE PO SCH (09:00)
--- NOTE | 2017-06-04 11:04 | Progress Note ---
- Date 06/04/17 Subjective: F/U: Influenza Doing fair. Feels good at times, then more tired/weak. Appetite still variable. Passing stool and urine well. Breathing stable-maintaining saturations on baseline O2, less cough congestion. Objective Vital signs: Temperature 98.0 F 06/04/17 07:35 Pulse Rate 81 06/04/17 08:35 Respiratory Rate 18 06/04/17 07:35 Blood Pressure 174/78 H 06/04/17 07:35 Pulse Oximetry 98 06/04/17 07:35 Height/Weight/BMI: Height 1.57 m Weight 68.4 kg Body Mass Index 27.1 - Constitutional Present: well nourished, well developed, cooperative - Routine HEENT Exam Head: Present: normocephalic, atraumatic Eye: Present: EOMI, PERRL ENT: Present: mucous membranes moist - Routine Respiratory Exam Present: decreased breath sounds. Absent: respiratory distress, wheezes, crackles - Routine Cardiovascular Exam Present: RRR, murmur - Routine Abdominal Exam Present: soft, normoactive bowel sounds, non distended, non tender. Absent: guarding - Routine Extremities Exam Present: no edema, pulses intact. Absent: cyanosis, clubbing - Routine Musculoskeletal Exam Musculoskeletal: Present: no clubbing or cyanosis - Routine Skin Exam Present: dry, warm - Routine Neurological Exam Present: alert, CN II-XII intact, moving all extremities, vision grossly intact , hearing grossly intact, normal speech. 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 Would recommend holding diuretics for 2 days due to low oral drive. Complete course of Tamiflu as started prior to admission. Zofran prn nausea. Patient to F/U with Madai Le in the up coming days for evaluation. See orders for details. Case discussed with CM. Time spent with care and discharge greater than 30 minutes. DVT Prophylaxis: SCD's Resuscitation Status: Do Not Resuscitate - Physician Narrative Physician: Jono Thurston MD Narrative: Date: 06/04/17 Time: 1058 Hospital Course Summary Disclaimer: The visit summary below is not to be considered part of the above Progress Note. Hospital Course: 06/03/17 Admit, obs status for influenza A, n/v, and recent hypotension at [facility]. Tamiflu for influenza A; supportive care with DuoNeb and O2 - it appears she's on chronic O2 at 2L. N/V and hyponatremia: Zofran PRN; IVF at 100 mL/hr. Start with clear liquid diet and advance diet as tolerated. Recent hypotension and current tachycardia - hold Bumex, metolazone, and losartan. Bumex dose was reduced from 25 to 12.5 yesterday - will cont at THIS lower dose; also continue diltiazem. With hx of CHF she will require close resp status monitoring - external review of records has shown [facility]. 06/04/17 With respiratory status stable (maintaining saturations on baseline O2 and not having respiratory distress) and oral drive increasing, will d/c to her care facility. Would recommend holding diuretics for 2 days due to low oral drive. Complete course of Tamiflu as started prior to admission. Zofran prn nausea. Patient to F/U with Madai Le in the up coming days for evaluation. See orders for details.
--- NOTE | 2017-06-04 11:15 | Extended Care Facility Orders ---
Admission Orders Admit to:: [facility] Allergies/Adverse Reactions: Allergies digoxin Allergy (Unknown, Verified 06/03/17 10:30) NAUSEA "I FEEL NAUSEATED, UNSTEADY, DON'T FEEL CAPABLE OF WALKING. THE LONGER I TAKE IT THE WORSE IT GETS" Sulfa (Sulfonamide Antibiotics) Adverse Reaction (Mild, Verified 06/03/17 10:30) GI SYMPTOMS PT UNCERTAIN trimethoprim Adverse Reaction (Mild, Verified 06/03/17 10:30) GI SYMPTOMS PT UNCERTAIN Admitting Diagnosis: influenza,hypoxia Admitting Physician: Jono Thurston MD Attending Physician: Dr Robins/Madai Le Code Status: Do Not Resuscitate Anticiapted Length of Stay: greater than 30 days Rehab Potential: fair Rehab Prognosis: fair Diet: No added salt May use Facility Protocol or Standing Orders: Yes May have flu vaccine: Yes Residential Certification: I certify that SNF services are required to be given on an Inpatient basis because of the patients need for nursing home care on a continuing basis for the condition(s) for which he/she received inpatient hospital services prior to his/her transfer to the SNF. SNF inpatient care is necessary for the following reasons Indication for Residential: Not Applicable - Additional Information In Event of Arrest: Do Not Start CPR Resident is Aware of Diagnosis: No (Dementia limits ) Referrals: Madai Le, SAILOR [Advanced Practice Nurse] - (F/U in 3-4 days ) Additional Orders: F/U with Madai Le in 3-4 days. Complete course of Tamiflu as initiated prior to admission. Hold Bumex and potassium on 06/04/17, , and 06/06/17 - May restart on 06/07/17. Continue O2 to maintain saturations 90%.
--- NOTE | 2017-06-04 11:19 | Discharge Summary ---
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) Hyponatremia, mild (POA) - resolved Atherosclerotic heart disease of [place] coronary artery Systolic heart failure, chronic Essential (primary) hypertension Angina pectoris - Hx of Atrial fibrillation Mild aortic insufficiency Hx of Pacemaker Placement Hx of Angina pectoris Depression Dementia Stage III CKD History of TIA and CVA with residual deficit Hearing loss Rheumatoid arthritis GERD without esophagitis Constipation - chronic - Laboratory Labs: Admit Lab 06/03/17 10:29 WBC 5.7 Hgb 11.4 L Hct 35.9 L MCV 95.0 Plt Count 164 Neut % (Auto) 82.7 H Lymph % (Auto) 5.9 L Me[place] % (Auto) 7.5 Eos % (Auto) 3.5 Baso % (Auto) 0.2 Admit Lab 06/03/17 10:29 Sodium 132 L Potassium 4.1 Chloride 96 L Carbon Dioxide 28 Anion Gap 8 BUN 27.0 H Creatinine 1.0 GFR Calculation 53 BUN/Creatinine Ratio 27 H Glucose 96 Calculated Osmolality 260 L Calcium 9.2 Total Bilirubin 0.30 AST 29 ALT 29 Alkaline Phosphatase 65 Troponin I 0.041 Total Protein 7.5 Albumin 3.8 Globulin 3.7 H Albumin/Globulin Ratio 1.0 L Laboratory Tests 06/03/17 12:23 Influenza Type A (PCR) Positive A* 06/04/17 04:24 06/04/17 04:24 - Radiology Radiology: Date of Exam: 06/03/17 Procedure: XR chest 1V Findings: Evaluation limited by underpenetration of the radiograph an suboptimal leftward patient rotation. Life support devices: Unchanged left pectoral dual-chamber pacer device. Lungs and airways: Normal lung volumes. No focal airspace consolidation. Normal pulmonary vasculature. Pleura: No pleural effusion or pneumothorax. Heart and mediastinum: Aortic atherosclerosis. Cardiac size accentuation by AP technique. Mitral annular calcifications. Osseous structures and soft tissues: No acute osseous abnormality is seen. Degenerative arthrosis of the shoulders. Impression: No acute cardiopulmonary process. History of Present Illness HPI: Paula Zee is an 86 year old woman who lives at [facility] in [place]. She's a poor historian and her niece/DPOA, Mary Kate, helps answer ROS questions. While Paula denies any symptoms other than a little bit of an upset stomach, Mary Kate gently corrects her regarding cough, dizziness with change in position, fever, nausea. Paula denies SOA, sweating, congestion or rhinorrhea, sore throat, dysphagia, headache, myalgias, weakness, falling, rashes, chest pain, palpitations, dysuria , vomiting, constipation, diarrhea, leg swelling. She was seen by Madai Le on rounds on 06/02/17, and staff reported that she vomited that morning and hasn't been eating/drinking as well (though pt did not recall these symptoms). Madai recommended to hold metolazone and Bumex until PO intake improved or weight is up 3 lbs; also Coreg was decreased to 12.5 mg BID b/c BP was 85/53. She's on chronic oxygen at 2L. She's been started on prophylactic Tamiflu. Staff called 911 due to fever of 102 and sats of 76-80% and she was taken to [facility] ED. CXR was negative. WBC was normal at 5.7. Na slightly low at 132. She was influenza A positive. For complete details of the H&P refer to that document. Objective Vital signs: Temperature 98.0 F 06/04/17 07:35 Pulse Rate 81 06/04/17 08:35 Respiratory Rate 18 06/04/17 07:35 Blood Pressure 174/78 H 06/04/17 07:35 Pulse Oximetry 98 06/04/17 07:35 Height/Weight/BMI: Height 1.57 m Weight 68.4 kg Body Mass Index 27.1 Hospital Course This is a general summary of the patient's hospital course. For more details refer to the complete medical record. Hospital course: 06/03/17 Admit, obs status for influenza A, n/v, and recent hypotension at [facility]. Tamiflu for influenza A; supportive care with DuoNeb and O2 - it appears she's on chronic O2 at 2L. N/V and hyponatremia: Zofran PRN; IVF at 100 mL/hr. Start with clear liquid diet and advance diet as tolerated. Recent hypotension and current tachycardia - hold Bumex, metolazone, and losartan. Bumex dose was reduced from 25 to 12.5 yesterday - will cont at THIS lower dose; also continue diltiazem. With hx of CHF she will require close resp status monitoring - external review of records has shown that she's required diuresis in the long-term for acute exacerbations. 06/04/17 With respiratory status stable (maintaining saturations on baseline O2 and not having respiratory distress) and oral drive increasing, will d/c to her care facility. Would recommend holding Bumex and potassium for 2 days due to low oral drive. May restart on 06/07/17 Complete course of Tamiflu as started prior to admission. Zofran prn nausea. Patient to F/U with Madai Le in the up coming days for evaluation. See orders for details. Time spent with patient: discharge greater than 30 minutes Resuscitation Status: Do Not Resuscitate Discharge Plan - Discharge Disposition Discharge Date: 06/04/17 Disposition: 04 To [facility] Home/Facility *Condition: Stable Reason For Visit (Visit label in EMR): influenza,hypoxia - Discharge Medications *Discharge Medications: New Ondansetron HCl 4 mg PO Q6HR PRN #20 tab PRN Reason: Nausea &/Or Vomiting FLUoxetine [Prozac] 20 mg PO DAILY cap Continue Atorvastatin Calcium 40 mg PO HS #0 Acetaminophen 650 mg PO Q6H #0 Losartan Potassium 25 mg PO DAILY #0 Buspirone HCl 30 mg PO BID Bumetanide Tab [Bumex Tab] 1 mg PO BID Multivitamin with Minerals [Eia-Z-Ntus-Minerals] 1 each PO HS Carvedilol 12.5 mg PO BID Zinc Oxide/Petrolatum,White [Jeff Moist Barrier Cream] 1 applicatio TOP DAILY Metolazone [Zaroxolyn] 2.5 mg PO 2XW guaiFENesin [Mucinex] 600 mg PO BID Docusate Sodium 100 mg PO BID Cyanocobalamin (Vitamin B-12) [Vitamin B-12] 1,000 mcg PO DAILY dilTIAZem HCl [Cartia Xt] 180 mg PO BID #0 Ascorbic Acid [Vitamin C] 500 mg PO DAILY Albuterol/Ipratropium [Duoneb] 1 unit AEROSOL Q4H PRN PRN Reason: Shortness Of Air Donepezil [Aricept] 10 mg PO HS Oseltamivir Phosphate 75 mg PO BID Protonix (Pantoprazole)40 mg tablet,delayed release 40 mg PO QAM Klor-Con M20 (potassium chloride ER) 20 mEq tablet,(part/cryst) 20 meq PO TID tab Discontinued Carvedilol [Coreg] 25 mg PO BID #0 No Action Fluoxetine HCl 20 mg PO DAILY #0 - Discharge Packet/Instructions *Diet: No added salt *Activity: As tolerated *Pain Management/Treatment: Continue prior pain medications *Wound Care: N/A Additional Instructions: Complete course of Tamiflu as initiated prior to admission. Hold Bumex and potassium on 06/04/17, 06/05/17, and 06/06/17 - September restart on 06/07/17. *Expected Signs/Symptoms: Improvement of appetite and symptoms. *Notify Physician if: Temp > 100.4. Intractable nausea/vomiting. *During Business Hours Contact: Nursing staff at [facility] *After Business Hours Contact: Nursing staff at [facility] *Pending Lab/Results: No Pending Lab - Referrals/Follow Up *Referrals/Follow Up: Madai Le, WAIST[employer] JOINER [Advanced Practice Nurse] - (F/U in 3-4 days ) - Patient Handouts - Dismissal Complete Discharge Instructions are:: Complete Physician Narrative - Narrative Physician: Jono Thurston MD Attestation Narrative: Date: 06/04/17 Time: 1116 I have independently interviewed and examined patient prior to discharge. See september progress note from today for details. Medically stable for discharge.
== END 2017-06-04 14:15 ==
LOC: MED 10:21 → ED 10:21 → MED 14:48
PROVIDERS: ADMIT Hospitalist; ATTEND Hospitalist